=== PATIENT | male | born 1940 | race Caucasian/White ===

== ENCOUNTER → 2023-07-15 10:59 | Outpatient (REF) | payer MEDICARE, OTHER, SELFPAY ==
[2023-07-15 11:54] LABS: Hematocrit 39.3 % (39.0-52.0); Hemoglobin 13.6 g/dL (13.0-18.0); Mean Corp Hgb Conc. 34.6 g/dL (33.0-37.0); Mean Corpuscular Hgb 34.3 pg (27.0-31.0); Mean Corpuscular Volume 99.2 fL (80.0-94.0); Mean Platelet Volume 11.2 fL (7.4-10.4); Platelet Count 187 10^3/uL (130-400); Red Blood Cell Count 3.96 10^6/uL (4.70-6.10); Red Cell Dist. Width 12.3 % (11.5-14.5)
== END ==
LOC: OLABPV 10:59
PROVIDERS: ATTENDING PHYSICIAN Internal Medicine Gastroenterology
DX: K63.5 Polyp of colon (principal)
CPT/HCPCS: 36415; 85027

== ENCOUNTER → 2023-09-02 10:50 | Outpatient (REF) | payer MEDICARE, OTHER, SELFPAY ==
[2023-09-02 11:46] LABS: % Basophils 0.5 % (0-2); % Eosinophils 1.5 % (0-6); % Immature Granulocytes 0.6 % (0-0.5); % Lymphocytes 17.9 % (20.5-51.1); % Monocytes 13.7 % (1.7-9.3); % Neutrophils 65.8 % (42.2-75.2); Absolute Eosinophils 0.1 10^3/uL (0-0.7); Absolute Lymphocytes 1.1 10^3/uL (1.2-3.4); Absolute Monocytes 0.9 10^3/uL (0.1-0.6); Absolute Neutrophils 4.1 10^3/uL (1.4-6.5); Hematocrit 40.9 % (39.0-52.0); Mean Corp Hgb Conc. 34.2 g/dL (33.0-37.0); Mean Corpuscular Hgb 34.4 pg (27.0-31.0); Mean Corpuscular Volume 100.5 fL (80.0-94.0); Mean Platelet Volume 10.9 fL (7.4-10.4); Nucleated Red Blood Cells % 0 % (-); Platelet Count 187 10^3/uL (130-400); Red Blood Cell Count 4.07 10^6/uL (4.70-6.10); Red Cell Dist. Width 12.4 % (11.5-14.5); White Blood Cell Count 6.2 10^3/uL (4.8-10.8)
[2023-09-02 12:18] LABS: Blood Urea Nitrogen 26 mg/dl (9-20); Calcium 9.2 mg/dl (8.4-10.2); Carbon Dioxide 26 mmol/L (22-30); Chloride 106 mmol/L (98-107); Glucose 94 mg/dl (70-99); Potassium 4.6 mmol/L (3.5-5.1); Sodium 138 mmol/L (135-145); eGFR > 60.00
[2023-09-02 13:22] LABS: Folate 12.7 ng/ml (2.76-20); Vitamin B12 391 pg/ml (239-931)
== END ==
LOC: OLABPV 10:50
PROVIDERS: ATTENDING PHYSICIAN Internal Medicine Gastroenterology; FAMILY PHYSICIAN Family Medicine
DX: Z23 Encounter for immunization (principal); I10 Essential (primary) hypertension; I25.10 Atherosclerotic heart disease of native coronary artery without angina pectoris; Z79.899 Other long term (current) drug therapy
CPT/HCPCS: 36415; 80048; 82607; 82746; 85025

== ENCOUNTER → 2024-05-07 10:39 | Outpatient (REF) | payer MEDICARE, OTHER, SELFPAY ==
[2024-05-07 11:18] LABS: % Basophils 0.7 % (0-2); % Eosinophils 2.3 % (0-6); % Immature Granulocytes 0.5 % (0-0.5); % Lymphocytes 25.6 % (20.5-51.1); % Monocytes 11.8 % (1.7-9.3); % Neutrophils 59.1 % (42.2-75.2); Absolute Eosinophils 0.1 10^3/uL (0-0.7); Absolute Lymphocytes 1.5 10^3/uL (1.2-3.4); Absolute Monocytes 0.7 10^3/uL (0.1-0.6); Absolute Neutrophils 3.4 10^3/uL (1.4-6.5); Hematocrit 41.1 % (39.0-52.0); Hemoglobin 13.6 g/dL (13.0-18.0); Mean Corp Hgb Conc. 33.1 g/dL (33.0-37.0); Mean Corpuscular Hgb 33.9 pg (27.0-31.0); Mean Corpuscular Volume 102.5 fL (80.0-94.0); Mean Platelet Volume 11.5 fL (7.4-10.4); Nucleated Red Blood Cells % 0 % (-); Platelet Count 175 10^3/uL (130-400); Red Blood Cell Count 4.01 10^6/uL (4.70-6.10); Red Cell Dist. Width 12.4 % (11.5-14.5); White Blood Cell Count 5.7 10^3/uL (4.8-10.8)
[2024-05-07 12:52] LABS: PSA, Total - Diagnostic 0.07 ng/ml (0.0-4.0)
[2024-05-08 22:00] LABS: % Free Testosterone 1.7 % (1.6-2.9); Free Testosterone 58 pg/mL (47-244); Sex Hormone Binding Globulin 39 nmol/L (19-76); Total Testosterone 351 ng/dL (300-720)
== END ==
LOC: OLABPV 10:39
PROVIDERS: ATTENDING PHYSICIAN Family Medicine Geriatric Medicine
DX: C61 Malignant neoplasm of prostate (principal); Z79.818 Long term (current) use of other agents affecting estrogen receptors and estrogen levels; K62.5 Hemorrhage of anus and rectum
CPT/HCPCS: 36415; 84153; 84270; 84402; 84403; 85025

== ENCOUNTER → 2024-05-21 15:49 | Outpatient (REF) | payer MEDICARE, OTHER, SELFPAY | LOC: RAD 15:49 | PROVIDERS: ATTENDING PHYSICIAN Physician Assistant | DX: M79.661 Pain in right lower leg (principal); M25.561 Pain in right knee | CPT/HCPCS: 73564; 73590 ==

== ENCOUNTER → 2024-06-02 07:05 | Outpatient (REF) | payer MEDICARE, OTHER, SELFPAY | LOC: RAD 07:05 | PROVIDERS: ATTENDING PHYSICIAN Physician Assistant; FAMILY PHYSICIAN Family Medicine | DX: M79.604 Pain in right leg (principal); I70.201 Unspecified atherosclerosis of native arteries of extremities, right leg | CPT/HCPCS: 93922; 93925 ==

== ENCOUNTER 2024-08-06 04:00 | Emergency (ER) | payer MEDICARE, OTHER, SELFPAY ==
[2024-08-06 04:14] VITALS: BMI 24.5
[2024-08-06 04:19] VITALS: BP 116/76
[2024-08-06 04:29] LABS: % Basophils 0.5 % (0-2); % Eosinophils 1.8 % (0-6); % Immature Granulocytes 0.4 % (0-0.5); % Monocytes 11.4 % (1.7-9.3); % Neutrophils 64.9 % (42.2-75.2); Absolute Eosinophils 0.1 10^3/uL (0-0.7); Absolute Lymphocytes 1.7 10^3/uL (1.2-3.4); Absolute Monocytes 0.9 10^3/uL (0.1-0.6); Absolute Neutrophils 5.2 10^3/uL (1.4-6.5); Hematocrit 38.6 % (39.0-52.0); Hemoglobin 13.4 g/dL (13.0-18.0); Mean Corp Hgb Conc. 34.7 g/dL (33.0-37.0); Mean Corpuscular Hgb 34.7 pg (27.0-31.0); Mean Platelet Volume 10.6 fL (7.4-10.4); Nucleated Red Blood Cells % 0 % (-); Platelet Count 162 10^3/uL (130-400); Red Blood Cell Count 3.86 10^6/uL (4.70-6.10); Red Cell Dist. Width 12.6 % (11.5-14.5)
[2024-08-06 04:51] LABS: Troponin I < 0.012 ng/ml
--- NOTE | 2024-08-06 04:52 | ED.GENMED ---
History of Present Illness
General
Chief Complaint: Chest Pain
Source: patient
Exam Limitations: none
Time Seen by Provider: 08/06/24 04:30
Nursing documentation reviewed up to this point in time: agreed with
History of Present Illness
History of Present Illness:
83-year-old male presents via private vehicle with chest pain that began yesterday morning. Patient took his to [facility] for scheduled surgery. He states that when he awakened just prior to leaving the house he had chest pain. He
had identical chest pain off and on throughout the day. He went to sleep and awakened this evening with the chest pain so he came into the emergency department. He does see Dr. Bullard. Patient is concerned because his had surgery
yesterday and he is her primary caregiver. He came into the emergency department just to be checked out. Currently he has no chest pain or any other symptoms.
Past History
Past History
ED Past Medical History: CAD, HTN and Hypercholesterolemia
ED Past Surgical History: Orthopedic (Bilateral knee replacements)
Social History
Tobacco: Former smoker
Alcohol: Occasional
Drug: None
Personal:
Living: with family
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
Family History
Family History: CAD and Other (Hyperlipidemia)
Review of Systems
Review of Systems
Allergies reviewed?: Yes
All Other Systems: ROS reviewed and negative except as documented in HPI and ROS
Constitutional: Reports no symptoms
EENT: Reports no symptoms
Respiratory: Reports no symptoms
Cardiac: Reports chest pain
ABD/GI: Reports no symptoms
: Reports no symptoms
Musculoskeletal: Reports no symptoms
Skin: Reports no symptoms
Neurological: Reports no symptoms
Endocrine: Reports no symptoms
Hematologic/Lymphatic: Reports no symptoms
Psychiatric: Reports no symptoms
Phy Exam
General Physical Exam
General Presentation: well appearing and no apparent distress
General Skin: warm and dry
General Habitus: normal
General Mental: alert
General Hydration: appears well hydrated
ENT Exam
ENT Exam: EOMI, pharynx normal, neck supple and normocephalic
Eye Exam
Eye Exam: PERRL, cornea clear and conjunctiva normal
Cardiovascular Exam
Cardiovascular Exam: regular rate/rhythm, no edema, no murmur and normal peripheral pulses
Pulmonary Exam
Pulmonary Exam: lungs clear, no respiratory distress, no rales, no crackles, no rhonchi, no stridor, no wheezing and no cough
Gastrointestinal Exam
Gastrointestinal Exam: normal bowel sounds, non tender, soft, no organomegaly, no pulsatile mass and non distended
Neurological Exam
Neurological Exam: alert, oriented x3, no motor deficits and speech normal
Musculoskeletal Exam
Musculoskeletal Exam: full ROM and no edema
Skin Exam
Skin Exam: normal color, warm/dry, no rash and no petechia
Psychiatric Exam
Psychiatric Exam: normal mood/affect
Scores
Heart Score for Chest Pain Patients
STEMI patient?: No
History: Slightly or Non-Suspicious
ECG: Normal
Age: >/= 65 years
Risk Factors: 1 or 2 Risk Factors
Troponin: </= Normal Limit
Heart Score for Chest Pain Patients: 3
Heart Score Risk: 2.5% MACE over next 6 weeks
Course
Orders/Labs/Results
Orders:
Orders
08/06/24 04:08
ECG [Electrocardiogram (*1)] Urgent
Reason for Study: Chest Pain
EKG- Treatment ONCE
08/06/24 04:13
EKG- Treatment ONCE
08/06/24 04:21
Complete Blood Count/With Diff Stat
Comprehensive Metabolic Panel Stat
Troponin I Stat
08/06/24 04:46
CR Chest - 2 Views Urgent
Comment:
Reason For Exam: cp
Abnormal Lab Results
08/06/24
04:21
RBC 3.86 L 10^6/uL
(4.70-6.10)
Hct 38.6 L %
(39.0-52.0)
MCV 100.0 H fL
(80.0-94.0)
MCH 34.7 H pg
(27.0-31.0)
MPV 10.6 H fL
(7.4-10.4)
Absolute Monos (auto) 0.9 H 10^3/uL
(0.1-0.6)
Monocytes % 11.4 H %
(1.7-9.3)
BUN 30 H mg/dl
(9-20)
08/06/24 04:21
08/06/24 04:21
Vital Signs
Initial and Last Documented VS:
Initial Vital Signs
Resp Pulse Ox
11 99
08/06/24 04:15 08/06/24 04:15
Last Documented Vital Signs
Pulse Resp BP Pulse Ox
54 17 108/72 97
08/06/24 06:00 08/06/24 06:00 08/06/24 06:00 08/06/24 06:00
*Critical Care Note
Total Time (30-74mins, 75-104mins- exclusive of procedures): Not Applicable
ED Attending Note
-
Portions of this chart may have been created with voice recognition software.� Occasional wrong word or��sound alike� substitutions may have occurred due to the inherent limitations of voice recognition software.
Discharge Plan
Departure
Patient Disposition: Home (Routine Discharge)
Date of Disposition: 08/06/24
Time of Disposition: 06:23
Patient with high blood pressure during this ER visit?: Yes
Condition: Good
Discharge Problem:
Chest pain
Instructions: Chest Pain CBC Follow Up
Prescriptions:
No Action
atorvastatin 40 MG tablet
40 mg PO HS
aspirin 81 MG tablet,delayed release (DR/EC)
81 mg PO HS
spironolactone 25 MG tablet
12.5 mg PO DAILY
nitroglycerin 0.4 MG tablet, sublingual
0.4 mg sublingual [id number] PRN (Reason: chest pain)
tamsulosin 0.4 mg Capsule
0.4 mg PO HS
polyethylene glycol 3350 [Miralax] 17 gram Powder In Packet
17 g PO DAILYPRN PRN (Reason: constipation)
amlodipine 5 mg Tablet
2.5 mg PO DAILY
diphenhydramine HCl 12.5 mg Tablet,Chewable
12.5 mg PO HS
esomeprazole magnesium 20 mg Tablet,Delayed Release (Dr/Ec)
40 mg PO DAILY
Dupixent Syringe 300 mg/2 mL Syringe
300 mg SC Q2W
ondansetron 4 mg tablet,disintegrating
4 mg PO Q8H PRN (Reason: nausea and vomiting) Qty: 7 0RF
Referrals:
Cuco Shabazz MD [Active] - Next open appointment
UNKNOWN - PT DOES,NOT KNOW [Family Provider] -
Activity Restrictions/Additional Instructions:
It was a pleasure meeting you and taking part in your care. We hope for your continued healing and wellness.
Please read discharge instructions in their entirety. However, they are for general education and may not describe your exact diagnosis at discharge. Information on your ER visit and medical conditions were discussed with you along with appropriate
follow up information...
If indicated, please take your medications as instructed and indicated on discharge paperwork.
Please schedule a follow up appointment as directed. Call to schedule an appointment
Please return to the emergency department with ANY change in, persisting, or worsening of symptoms. If any of your symptoms do not improve, or persist, or become more severe within 6-12 hours, please return to the emergency department for further
care.
Please return to the emergency department if you develop a headache, neck pain/stiffness, fever greater than 100.4F, chest pain, shortness of breath, persistent nausea, vomiting, slurred speech, difficulty walking, numbness/tingling, weakness, signs
of infection or any other symptoms that are worrisome to you.
If you have any questions or concerns please do not hesitate to call the Hospital at or E-mail me directly at [email or web address]
Interventions
Interventions:
*Risk Screen - Suicide Last Done: 08/06/24 04:10
*General Assessment Last Done: 08/06/24 04:27
*Neglect/Abuse Screening Last Done: 08/06/24 04:10
*ED- Fall Risk Assessment Last Done: 08/06/24 04:10
*ED COVID-19 Vaccine History Last Done: 08/06/24 04:10
ED- Cardiac Assessment Last Done: 08/06/24 04:28
Discharge Date and Time
Print Language: MOHAWK
[2024-08-06 04:53] LABS: ALT (SGPT) 31 U/L (0-50); AST (SGOT) 27 U/L (17-59); Albumin 4.1 g/dl (3.5-5.0); Alkaline Phosphatase 73 U/L (38-126); Blood Urea Nitrogen 30 mg/dl (9-20); Calcium 8.8 mg/dl (8.4-10.2); Carbon Dioxide 24 mmol/L (22-30); Chloride 107 mmol/L (98-107); Estimated Creatinine Clearance 53 ml/min; Glucose 99 mg/dl (70-99); Sodium 141 mmol/L (135-145); Total Bilirubin 0.8 mg/dl (0.2-1.3); Total Protein 6.4 g/dl (6.3-8.2); eGFR > 60.00
[2024-08-06 05:00] VITALS: BP 110/65
[2024-08-06 06:00] VITALS: BP 108/72
== END 2024-08-06 06:36 | disposition home or self-care (01) ==
LOC: EMR 04:00
PROVIDERS: EMERGENCY PHYSICIAN Student in an Organized Health Care Education/Training Program
DX: R07.89 Other chest pain (principal); E78.00 Pure hypercholesterolemia, unspecified; I10 Essential (primary) hypertension; I25.10 Atherosclerotic heart disease of native coronary artery without angina pectoris; Z01.810 Encounter for preprocedural cardiovascular examination; Z82.49 Family history of ischemic heart disease and other diseases of the circulatory system; Z83.438 Family history of other disorder of lipoprotein metabolism and other lipidemia; Z83.49 Family history of other endocrine, nutritional and metabolic diseases; Z87.891 Personal history of nicotine dependence; Z96.653 Presence of artificial knee joint, bilateral
CPT/HCPCS: 99283; 71046; 80053; 84484; 85025; 93005

== ENCOUNTER 2024-08-11 17:05 | Inpatient (IN) | payer MEDICARE, OTHER, SELFPAY ==
[2024-08-11] VITALS (13 sets, daily range): BP systolic 112–147; BP diastolic 58–89; BMI 25.1
[2024-08-11] MEDS: NSS 231 ML IV (12:30)
[2024-08-11] MEDS: NSS 1000 IV (15:16)
--- NOTE | 2024-08-11 15:27 | ITS.CL.CATH ---
Professor Of Physics - Catheterization
Cardiac Catheterization
Procedure Report:
CARDIAC CATHETERIZATION REPORT
Date of Procedure: 08/11/2024
Referring: Chip Villalpando M.D.
INDICATION: Known coronary artery disease, new chest pain.
PROCEDURE:
1. Left heart catheterization.
2. Coronary angiography.
A total of 19 minutes of procedural/moderate sedation was utilized. An independent durable medical equipment technician was present to assist with and help manage the patient's level of consciousness and physiologic status.
ACCESS:
1. 6 Samoan right rate artery using a modified Seldinger technique.
CATHETERS:
1. 5 Samoan JR4.
2. 5 Samoan JL 3.5.
HEMODYNAMIC DATA
Weight (kg): 77.1
AO (s/d/x, mmHg): 110/63/81
LV (s/x mmHg): 112/6
LEFT VENTRICULOGRAPHY: Not performed.
CORONARY ANGIOGRAPHY
Dominance: Right.
Left Main: Normal size, bifurcating vessel. There is a densely calcified, 70-80% lesion in the distal aspect of the left main as it enters the LAD and circumflex.
LAD: Normal size vessel giving rise to 1 significant diagonal. There is an at least 70% blockage in the ostium of the vessel as it arises from the left main coronary artery as an extension of the left main lesion. There is a densely calcified,
80% lesion in the proximal vessel immediately proximal to the master septal.
Ramus: Congenitally absent.
Circumflex: Large size, nondominant vessel giving rise to 3 obtuse marginals. There is a 70+% lesion in the ostium of the vessel as an extension of the left main lesion. OM1 is a relatively small vessel with an 80% lesion in its ostium. OM 2
and OM 3 arise more distally and run a parallel course.
RCA: Normal size, dominant vessel. The vessel is subtotally occluded with bridging collaterals in its midportion supplying a large posterolateral branch with PARAG II flow. The RPDA is chronically totally occluded and supplied by collaterals
from the LAD.
INTERVENTION(S)
None.
Closure Device: Vascular band.
Radiation (mGy): 505.64
DAP (cm2.Gy): 32.2735
Fluoroscopy time (minutes): 3.1
CONCLUSIONS
1. Right dominant circulation with a densely calcified, 70-80% lesion in the distal aspect of the left main extending into both the LAD and circumflex with 70% blockages in the ostia of both vessels, and 80%, densely calcified lesion in the
proximal LAD immediately proximal to the master septal, and 80% lesion in a small OM1 ostium, subtotal occlusion of the mid RCA with bridging collaterals supplying a large posterolateral branch with PARAG II flow and a chronic total occlusion of the
RPDA which is supplied by collaterals from the LAD.
2. Normal filling pressures (LVEDP = 6 mmHg at 77.1 kg).
RECOMMENDATIONS:
1. Expectant management after cardiac catheterization via right radial approach.
2. Limited weight bearing on the right for one week.
3. Consultation with CT surgery regarding optimal revascularization strategy.
4. Aggressive secondary prevention with high-dose, high potency statin. Goal LDL <55.
5. OMT/GDMT as hemodynamics will tolerate.
6. Echocardiogram ordered and pending.
Copy to: Chip Villalpando M.D., Marquise Escobar M.D.
Emile Booth DO, FACC, FACP
--- NOTE | 2024-08-11 16:27 | PTCARENOTE ---
Dr Booth at pt bedside speaking to pt and pt's son.
[2024-08-11 17:02] LABS: Hemoglobin 13.3 g/dL (13.0-18.0); Mean Corpuscular Hgb 34.9 pg (27.0-31.0); Mean Corpuscular Volume 99.7 fL (80.0-94.0); Mean Platelet Volume 10.5 fL (7.4-10.4); Platelet Count 143 10^3/uL (130-400); Red Blood Cell Count 3.81 10^6/uL (4.70-6.10); Red Cell Dist. Width 12.3 % (11.5-14.5); White Blood Cell Count 7.5 10^3/uL (4.8-10.8)
[2024-08-11 17:20] LABS: APTT 142.1 Sec (23.4-35.0)
--- NOTE | 2024-08-11 17:45 | PTCARENOTE ---
received pt from laboratory coordinator. AOx3, no complaints of pain or discomfort. Right radial site CDI. VSS. SB on tele monitor. Oriented to room and unit. Pt educated on limb restrictions. Call hou within reach.
--- NOTE | 2024-08-11 17:52 | CONSULT.CT ---
Consultation
-
Date/Time Consultation Requested: 08/11 1629
Date/Time Consultation Performed: 08/11 1744
Requesting Provider: Leobardo VENTURA
Performing Provider: Roslyn ROMAN for Pepe VENTURA
Reason for Consultation: CABg eval
Patient History
Physicians
Family Physician: Marquise Escobar M.D.
Outpatient Clinical Staff Educator: Chip Villalpando M.D.
Inpatient Clinical Staff Educator: Chip Villalpando M.D.
History of Present Illness
A 83-year-old male with past medical history significant for hypertension, hyperlipidemia, CAD initially presented to [facility]'s emergency room on 08/06 complaining of chest pain. He recently took his for a scheduled surgery that day at
[facility] and stated that prior to leaving the house he had some chest pain that was on and off throughout the day. He went to sleep and was awakened this evening with chest pain so he came to [facility]'s emergency room. Patient's
troponins were negative at that time and EKG did not show significant changes. Therefore patient was discharged from the hospital and presented on 08/11 for a elective heart cath with Dr. Booth. Left heart catheter revealed multivessel disease and
CT surgery was consulted for surgical evaluation.
Past Medical History
Past Medical History: CAD, HTN and Hypercholesterolemia
Past Surgical History
B/l knee replacements
Tonsilectomy
Family History
Mother: N/A
Father: N/A
Family Medical History: CAD
Social History
Alcohol: Occasional
Drug: None
Tobacco: Former Smoker (quit in 1968 smoked 1.5PPD)
Personal:
Living: With Spouse
Employment: Retired
Allergies
Allergy/AdvReac Type Severity Reaction Status Date / Time
bee venom protein (honey bee) Allergy throat Verified 08/11/24 12:38
closing
and itching
hydrochlorothiazide Allergy THROAT Verified 08/11/24 12:38
[From Prinzide] SWELLING
hydromorphone HCl Allergy Hives Verified 08/11/24 12:38
[From Dilaudid]
lisinopril [From Prinzide] Allergy THROAT Verified 08/11/24 12:38
SWELLING
morphine [Morphine] Allergy Hives Verified 08/11/24 12:38
oxycodone HCl [From Percocet] Allergy Hives Verified 08/11/24 12:38
Sulfa (Sulfonamide Allergy Hives Verified 08/11/24 12:38
Antibiotics)
tramadol Allergy itch and Verified 08/11/24 12:38
difficulty
sleeping
ezetimibe [From Zetia] AdvReac LEG Verified 08/11/24 12:38
SORENESS
Home Medications
�Medication �Instructions �Recorded �Confirmed �Type
aspirin 81 mg tablet,delayed 81 mg PO QPM 09/01/16 08/11/24 History
release
atorvastatin 40 mg tablet 40 mg PO QPM 09/01/16 08/11/24 History
nitroglycerin 0.4 mg sublingual 0.4 mg sublingual [id number] PRN 09/01/16 08/11/24 History
tablet chest pain
spironolactone 25 mg tablet 12.5 mg PO DAILY 09/01/16 08/11/24 History
tamsulosin 0.4 mg capsule 0.8 mg PO HS 01/30/22 08/11/24 History
amlodipine 5 mg tablet 2.5 mg PO DAILY 03/26/23 08/11/24 History
dupilumab 300 mg/2 mL subcutaneous 300 mg SC Q2W 03/26/23 08/11/24 History
syringe (Dupixent)
polyethylene glycol 3350 17 gram 17 g PO DAILYPRN PRN constipation 03/26/23 08/11/24 History
oral powder packet (Miralax)
Probiotic 2 tab PO DAILY 08/11/24 08/11/24 History
diphenhydramine HCl 25 mg tablet 25 mg PO HS 08/11/24 08/11/24 History
(Benadryl Allergy)
epinephrine 0.3 mg/0.3 mL 0.3 mg IM DAILYPRN PRN allergic 08/11/24 08/11/24 History
injection, auto-injector reaction
esomeprazole magnesium 40 mg 40 mg PO BID 08/11/24 08/11/24 History
capsule,delayed release (Nexium)
Review of Systems
-
History Source: Patient
General: Reports No Symptoms
HEENT: Reports No Symptoms
Respiratory: Reports No Symptoms
Cardiac: Reports Chest Pain
Abdomen/GI: Reports No Symptoms
: Reports No Symptoms
Musculoskeletal: Reports No Symptoms
Skin: Reports No Symptoms
Neurological: Reports No Symptoms
Vascular: Reports No Symptoms
Physical Exam
Vital Signs
Temp 97.7 F 08/11/24 17:41
Temp route: Oral 08/11/24 17:41
Pulse 63 08/11/24 17:41
Resp Rate 20 08/11/24 17:41
Blood pressure 147/89 08/11/24 17:41
Blood pressure extremity used: Left upper arm 08/11/24 17:23
Position: Lying 08/11/24 17:23
MAP (cuff-Heidi Monitor) 105 08/11/24 17:41
SaO2 97 08/11/24 17:41
Oxygen Mode of Delivery Room air 08/11/24 17:41
Can the patient verbally communicate their pain? Yes 08/11/24 17:23
Actual Weight 77.11 kg 08/11/24 12:10
Body Mass Index (BMI) 25.1 08/11/24 12:10
Labs
08/11/24 16:51
APTT 142.1 Sec (23.4-35.0) H 08/11/24 16:51
Exam
General: Well Developed and Well Nourished
HEENT: Normocephalic
Respiratory: Clear
Cardiac: S1/S2
GI: Soft
Rectal: Deferred by Provider
Skin: Warm
Neuro: AO x 3
Extremities: Pulses (+1)
Lymph: No Lymphadenopathy
Psych: Calm
Assessment / Plan
-
83-year-old male with past medical history listed above presents to [facility] for an elective left heart catheter and was found to have multivessel disease. CT surgery was consulted for surgical evaluation
#CAD
-Patient's case will be discussed with attending physician. Further details regarding surgical timing intervention will be determined after attending physicians full evaluation
-Routine preoperative cardiothoracic surgery orders will be initiated.
-STS risk stratification score will be calculated after preoperative testing is complete
-Continue nitroglycerin and heparin gtt per cardiology
�Follow-up on TTE
[2024-08-11] MEDS: LIPITOR 40 MG PO (17:55)
[2024-08-11] MEDS: FLOMAX 0.8 MG PO (20:15)
[2024-08-11 20:44] LABS: APTT 32.9 Sec (23.4-35.0)
[2024-08-11] MEDS: HEPARIN 25000 UNITS/250 ML IV (21:58)
[2024-08-11] MEDS: BENADRYL 25 MG PO (22:38)
--- NOTE | 2024-08-11 23:54 | PTCARENOTE ---
Pt seated in the chair with family at change of shift. Plan of care discussed. Pt without complaints. R radial CDI. palpable pulses. No complaints of CP. Heparin gtt started @ 2200 as documented. Urinal provided for frequency concerns with the IV
pole.
[2024-08-12] VITALS (8 sets, daily range): BP systolic 111–135; BP diastolic 71–85; BMI 23.7
[2024-08-12 04:33] LABS: INR 1.06; PT 14.3 Sec (11.4-14.6)
[2024-08-12 04:35] LABS: APTT 75.1 Sec (23.4-35.0)
[2024-08-12 05:12] LABS: ALT (SGPT) 19 U/L (0-50); AST (SGOT) 22 U/L (17-59); Albumin 3.7 g/dl (3.5-5.0); Alkaline Phosphatase 76 U/L (38-126); Blood Urea Nitrogen 21 mg/dl (9-20); Carbon Dioxide 25 mmol/L (22-30); Chloride 108 mmol/L (98-107); Direct Bilirubin 0.2 mg/dl (0.0-0.4); Estimated Creatinine Clearance 53 ml/min; Glucose 92 mg/dl (70-99); Potassium 4.5 mmol/L (3.5-5.1); Sodium 140 mmol/L (135-145); Total Bilirubin 0.8 mg/dl (0.2-1.3); Total Protein 5.9 g/dl (6.3-8.2); eGFR > 60.00
--- NOTE | 2024-08-12 08:07 | PTCARENOTE ---
Received patient this morning resting in bed, IV heparin infusing at 950 units/hr. Patient sent for his CT of the chest and ultrasound. Patient anxious to find out when impending surgery will be scheduled.
[2024-08-12 08:44] LABS: Glycohemoglobin (HgbA1c) 5.5 % (4.0-5.6)
--- NOTE | 2024-08-12 09:01 | W.PN.CD ---
Addendum entered and electronically signed by Cuco Shabazz MD 08/13/24 14:15:
Cath yesterday: CONCLUSIONS
1. Right dominant circulation with a densely calcified, 70-80% lesion in the distal aspect of the left main extending into both the LAD and circumflex with 70% blockages in the ostia of both vessels, and 80%, densely calcified lesion in the
proximal LAD immediately proximal to the master septal, and 80% lesion in a small OM1 ostium, subtotal occlusion of the mid RCA with bridging collaterals supplying a large posterolateral branch with PARAG II flow and a chronic total occlusion of the
RPDA which is supplied by collaterals from the LAD.
2. Normal filling pressures (LVEDP = 6 mmHg at 77.1 kg).
Original Note:
Today's Communication / Plan
-
Continue meds anticipation for or tomorrow
Impression / Plan
-
I/P: 83-year-old male with CAD, hypertension, dyslipidemia, prostate cancer and GERD who initially presented for outpatient coronary angiography. He was then found to have severe left main disease. He is in preparation for CABG.
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
-CABG August 13
-Cath below
-Continue statin aspirin
Hypertension
-Continue amlodipine metoprolol spironolactone
Dyslipidemia
-Continue statin
Physical Exam
Vital Signs/Labs
Vital Signs
Temp Pulse Resp BP Pulse Ox
97.8 F 70 16 115/82 97
08/12/24 20:43 08/13/24 06:00 08/12/24 20:43 08/13/24 05:59 08/12/24 20:43
08/12/24 08/13/24 08/14/24
06:59 06:59 06:59
Actual Weight 160 lb 11.472 oz 157 lb 10.088 oz
08/13/24 05:13
08/12/24 04:12
PT 14.3 Sec (11.4-14.6) 08/12/24 04:12
INR 1.06 08/12/24 04:12
APTT 108.7 Sec (23.4-35.0) H 08/12/24 10:30
Physical Exam
Constitutional: No acute distress
EENT: Anicteric
Cardiovascular: Rhythm & rate is regular
Respiratory: Respiratory effort normal
GI: Soft
Neuro/Psych: AO x 3
Data Reviewed
-
Date of Service: August 13, 2024
Medical Decision Making: Reviewed Test Results (cath)
EKG: Tracing Personally Visualized and interpreted (sr)
Echo: Report Reviewed by me
Labs: Labs Reviewed by me
[2024-08-12] MEDS: PROTONIX 40 MG PO (10:20)
[2024-08-12] MEDS: NORVASC 2.5 MG PO (10:21)
[2024-08-12] MEDS: LOW STRENGTH ASPIRIN 81 MG PO (10:21)
[2024-08-12] MEDS: ALDACTONE 12.5 MG PO (10:22)
[2024-08-12 11:06] LABS: APTT 108.7 Sec (23.4-35.0)
--- NOTE | 2024-08-12 11:41 | CM ---
Chart reviewed. Patient is independent of ADLS, lives with his in [place] at [facility], [address], [address] [place], 0 [address]. Patient going for a CABG 08/13. Plan is for the patient to return home with CT Transitional RN. CM to follow
--- NOTE | 2024-08-12 13:48 | W.PN.UPDATE ---
Update Note
Progress Note Update
STS RISK SCORE
Procedure Type:�Isolated CABG
Perioperative Outcome Estimate %
Operative Mortality 1.91%
Morbidity & Mortality 6.07%
Stroke 0.871%
Renal Failure 1%
Reoperation 2.57%
Prolonged Ventilation 2.85%
Deep Sternal Wound Infection 0.069%
Long Hospital Stay (>14 days) 3.93%
Short Hospital Stay (<6 days)* 42.4%
Clinical Summary
Planned Surgery: Isolated CABG, Urgent, First cardiovascular surgery
Demographics: 83 year old, White, male, 72.9kg, 175cm, BMI: 23.8 kg/m�
Lab Values: Creatinine: 1.1 mg/dL, Hematocrit: 38%, WBC Count: 7.5 10�/�L, Platelet Count: 155281 cells/�L
Substance Abuse: Former smoker, Alcohol use: <=1 drink/week
Risk Factors / Comorbidities: Hypertension
Cardiac Status: NYHA Class II, Ejection Fraction = 50%
Coronary Artery Disease: 3 vessels diseased, Left Main Stenosis >=50%, Stable Angina
--- NOTE | 2024-08-12 14:10 | W.PN.UPDATE ---
Update Note
Progress Note Update
CARDIAC SURGERY OPERATIVE NOTE:
It was my pleasure to meet w/ Mr. Strong and his family at his bedside today. I have reviewed his medical history and all available imaging. He will benefit from surgical coronary revascularization. I anticipate BLAYNE to LAD and GSV to OM2. I
will evaluate his posterior circulation (RPLB and RPDA) vessels and am hopeful that at least one of these will also be amenable to bypass. I will also assess his OM1 branch, but believe this will be too small to accommodate a bypass with any degree
of longevity. His work-up is complete w/ the exception of echocardiographic assessment. I am planning operative intervention TOMORROW, 08/13/2024.
I had a long conversation w/ Mr. Strong and his family. We reviewed his pathology, discussed the proposed operative intervention, reviewed the periprocedural risks (including, but not limited to, , stroke, AL, arrythmia, PNA, TONY/F,
bleeding, and infection), discussed the expected in-hospital postoperative course, and reviewed the outpatient recovery. All questions were answered to the best of my abilities. The patient is agreeable to proceed.
Thank you for the opportunity to participate in the care of this kind patient.
Please call with any questions/concerns.
Semaj Cantu M.D.
[phone]
--- NOTE | 2024-08-12 14:28 | CM ---
Preoperative and postoperative instructions and restrictions, along with showering instructions guidelines provided to the patient, and daughters. Patient is agreeable to a home visit by CT Transitional RN. Patient is independent of ADLS,
lives in a cottage at [place] at [facility], [address] [facility], [address] [place], 0 [address]. Plan is for the patient to return home with CT Transitional RN.
[2024-08-12] MEDS: LIPITOR 40 MG PO (17:12)
[2024-08-12 18:11] LABS: Urine Albumin Negative (Neg - Trace); Urine Bilirubin Negative (Negative); Urine Character Clear (Clear); Urine Color Yellow; Urine Glucose Negative (Negative); Urine Ketone Negative (Negative); Urine Leukocyte Negative (Negative); Urine Nitrite Negative (Negative); Urine Occult Blood Negative (Negative); Urine Specific Gravity 1.005 (<1.030); Urine Urobilinogen Negative (Neg - 1+)
[2024-08-12] MEDS: SENOKOT-S 1 TABLET PO (20:44)
--- NOTE | 2024-08-12 21:00 | PTCARENOTE ---
Received pt @ change of shift. AAOx3. VSS. Heparin running through left AC @ 950 units/hr. Right radial site CDI. Discussed OR prep for the night. Pt verbalized understanding. Call hou within reach.
[2024-08-12] MEDS: HEPARIN 25000 UNITS/250 ML IV (22:18)
[2024-08-12] MEDS: FLOMAX 0.8 MG PO (22:19)
[2024-08-13] VITALS (15 sets, daily range): BP systolic 80–122; BP diastolic 62–82; BMI 23.3
--- NOTE | 2024-08-13 01:20 | PTCARENOTE ---
CVOR prep completed @ 2244. Pt clipped, CHG washed, linens and gown changed, bed wiped down. Discussed plan of care for morning prep. Pt verbalized understanding for NPO @ midnight. EVA Lam PA, verified prep.
[2024-08-13 05:50] LABS: Hematocrit 41.3 % (39.0-52.0); Hemoglobin 14.6 g/dL (13.0-18.0); Mean Corp Hgb Conc. 35.4 g/dL (33.0-37.0); Mean Corpuscular Hgb 34.9 pg (27.0-31.0); Mean Corpuscular Volume 98.8 fL (80.0-94.0); Mean Platelet Volume 11.3 fL (7.4-10.4); Platelet Count 166 10^3/uL (130-400); Red Blood Cell Count 4.18 10^6/uL (4.70-6.10); Red Cell Dist. Width 12.4 % (11.5-14.5); White Blood Cell Count 8.4 10^3/uL (4.8-10.8)
[2024-08-13] MEDS: LOPRESSOR 25 MG PO (05:59)
[2024-08-13] MEDS: PROTONIX 40 MG PO (05:59)
[2024-08-13] MEDS: MAGNESIUM OXIDE 500 MG PO (05:59)
[2024-08-13] MEDS: BACTROBAN 2% OINTMENT 1 APPLIC NASAL ×2 (06:09→20:06)
[2024-08-13 07:07] LABS: ACT+ - POC 115 Seconds (82-134)
[2024-08-13 08:05] LABS: Urine Albumin 1+ (Neg - Trace); Urine Bilirubin Negative (Negative); Urine Character Clear (Clear); Urine Color Yellow; Urine Glucose Negative (Negative); Urine Ketone Negative (Negative); Urine Leukocyte Negative (Negative); Urine Nitrite Negative (Negative); Urine Occult Blood Negative (Negative); Urine Urobilinogen Negative (Neg - 1+); Urine pH 6.5 (5.0-9.0)
[2024-08-13 08:28] LABS: Urine Amorphous Seen; Urine Squamous Cell 0-2 /LPF (Few)
[2024-08-13 08:29] LABS: Urine Red Blood Cell 0-2 /HPF (0-2); Urine White Cell 0-2 /HPF (0-5)
[2024-08-13 09:44] LABS: ACT+ - POC 742 Seconds (82-134)
[2024-08-13 10:25] LABS: ACT+ - POC 857 Seconds (82-134)
[2024-08-13 10:25] LABS: B.E. - POC -3.7 mmol/L; Glucose - POC 113 mg/dl (70-99); HCO3 - POC 23 mmol/L (21-28); Hematocrit - POC 39 % PCV (42-52); Hemodilution- POC No; Hemoglobin Calculated - POC 13.3; Ionized Calcium - POC 1.16 mmol/L (1.15-1.33); Lactate - POC < 0.30 mmol/L (0.36-0.75); PCO2 - POC 48 mmHg (35-48); PO2 - POC 408 mmHg (83-108); Potassium - POC 3.9 mmol/L (3.5-5.1); Sodium - POC 145 mmol/L (136-145); Specimen Type - POC Arterial; pH - POC 7.29 (7.35-7.45)
[2024-08-13 10:50] LABS: ACT+ - POC 704 Seconds (82-134)
[2024-08-13 11:03] LABS: B.E. - POC 3.4 mmol/L; Glucose - POC 140 mg/dl (70-99); HCO3 - POC 28 mmol/L (21-28); Hematocrit - POC 31 % PCV (42-52); Hemodilution- POC Yes; Hemoglobin Calculated - POC 10.6; Ionized Calcium - POC 0.94 mmol/L (1.15-1.33); Lactate - POC < 0.30 mmol/L (0.36-0.75); PCO2 - POC 41 mmHg (35-48); PO2 - POC 424 mmHg (83-108); Potassium - POC 5.5 mmol/L (3.5-5.1); Sodium - POC 139 mmol/L (136-145); Specimen Type - POC Arterial; pH - POC 7.44 (7.35-7.45)
[2024-08-13 11:22] LABS: ACT+ - POC 521 Seconds (82-134)
[2024-08-13 11:24] LABS: B.E. - POC 1.4 mmol/L; Glucose - POC 169 mg/dl (70-99); HCO3 - POC 26 mmol/L (21-28); Hematocrit - POC 30 % PCV (42-52); Hemodilution- POC Yes; Hemoglobin Calculated - POC 10.3; Ionized Calcium - POC 0.96 mmol/L (1.15-1.33); Lactate - POC < 0.30 mmol/L (0.36-0.75); O2 Saturation %Calculated-POC 99.9 % (94-98); PCO2 - POC 39 mmHg (35-48); PO2 - POC 330 mmHg (83-108); Potassium - POC 5.5 mmol/L (3.5-5.1); Sodium - POC 140 mmol/L (136-145); Specimen Type - POC Arterial; pH - POC 7.43 (7.35-7.45)
[2024-08-13] MEDS: ALDACTONE PO (11:24)
[2024-08-13] MEDS: NORVASC PO (11:25)
[2024-08-13] MEDS: PROTONIX PO (11:25)
[2024-08-13] MEDS: SENOKOT-S PO (11:25)
[2024-08-13] MEDS: LOW STRENGTH ASPIRIN PO (11:25)
[2024-08-13 11:33] LABS: B.E. - POC 0.8 mmol/L; Glucose - POC 161 mg/dl (70-99); HCO3 - POC 26 mmol/L (21-28); Hematocrit - POC 31 % PCV (42-52); Hemodilution- POC Yes; Hemoglobin Calculated - POC 10.5; Ionized Calcium - POC 1.01 mmol/L (1.15-1.33); Lactate - POC 0.51 mmol/L (0.36-0.75); O2 Saturation %Calculated-POC 99.9 % (94-98); PCO2 - POC 45 mmHg (35-48); PO2 - POC 277 mmHg (83-108); Potassium - POC 5.4 mmol/L (3.5-5.1); Sodium - POC 141 mmol/L (136-145); Specimen Type - POC Arterial; pH - POC 7.38 (7.35-7.45)
--- NOTE | 2024-08-13 11:40 | CM ---
Addendum entered by FELIPE Barriga 08/13/24 15:40:
Met w/ patient's son, Ed at bedside.
Ed expressed concern that patient will go home and resume his caregiving role to his spouse. 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
We discussed patient's anticipated recovery and level of function at DC.
We discussed the possibility of patient going to rehab, if needed @ [facility].
We discussed that patient will have to participate in Cardiac Rehab and get around this weekend so that we can see his functional status.
Goal is to go home but we may need to review functional limitations w/ patient and spouse prior to DC.
Original Note:
Patient in OR today for planned CT Surgery.
Reviewed initial assessment.
Pt. resides w/ spouse in a private [place] apartment at [facility].
Pt. is functionally indep. at baseline w/ ADLs, mobility.
Antic. DC plan is for home w/ CT Transitional Care RN.
CM to follow.
[2024-08-13 11:47] LABS: ACT+ - POC 607 Seconds (82-134)
[2024-08-13 12:29] LABS: ACT+ - POC 129 Seconds (82-134)
[2024-08-13 12:31] LABS: B.E. - POC 5.4 mmol/L; Glucose - POC 137 mg/dl (70-99); HCO3 - POC 29 mmol/L (21-28); Hematocrit - POC 31 % PCV (42-52); Hemodilution- POC Yes; Hemoglobin Calculated - POC 10.5; Ionized Calcium - POC 1.16 mmol/L (1.15-1.33); Lactate - POC 1.25 mmol/L (0.36-0.75); O2 Saturation %Calculated-POC 99.9 % (94-98); PCO2 - POC 37 mmHg (35-48); PO2 - POC 251 mmHg (83-108); POC Comment POST; Potassium - POC 4.4 mmol/L (3.5-5.1); Sodium - POC 145 mmol/L (136-145); Specimen Type - POC Arterial
--- NOTE | 2024-08-13 12:59 | W.CVOR.SURPR ---
CVOR Surgeon Immed Pre Op
-
I have examined this patient prior to performance of the scheduled procedure.
The patient's condition is unchanged from the time of the dictated/written History and
Physical and the patient is able to undergo the scheduled procedure.
--- NOTE | 2024-08-13 12:59 | W.IMMPOSTOP ---
Addendum entered and electronically signed by Semaj Cantu MD 08/13/24 14:26:
[id number]
Original Note:
Surgical Immed Post Op Note
-
CARDIAC SURGERY OPERATIVE NOTE:
Preoperative Dx:
MVCAD including distal LM disease
Postoperative Dx:
Same
Procedures:
1) Median sternotomy
2) Takedown of BLAYNE (narrow pedicle)
3) Endoscopic harvest/prep of RLE GSV
4) CABG x 4 (BLAYNE to LAD, GSV to D1, GSV to OM2, GSV to RPDA)
Surgeon:
Semaj Cantu M.D.
Assistants:
Angelic JaureguiA.-CTono; educational program assistant throughout
Teresa Christensen P.A.-C.; endoscopic harvest/prep of RLE GSV; [id number] sternotomy closure
Anesthesia:
Navjot Snyder M.D. and Gavin Palacio, C.R.N.A.
Perfusion:
Ramila Carlson, C.C.P.; CPB: 128min, XC: 84min
Findings:
BLAYNE was healthy appearing conduit w/ brisk blood flow; ELD 2.25mm
GSV was healthy appearing conduit w/ ELD 3.0-3.5mm
LAD was visible on the epicardial surface, minor serpentine course, very scant scattered calcifications; ELD 2.5mm
D1 was visible on the epicardial surface, no sig calcifications, ELD 2.0mm - sig non-coronary collateral flow requiring 1.5mm intracoronary shunt for anastomotic visualization
OM1 was visible on the epicardial surface, but was a small vessel (~1.0mm), anastomosis not performed
OM2 was visible on the epicardial surface, scant scattered calcifications; ELD 2.75mm
RPDA was visible on the epicardial surface, scant scattered calcifications; ELD 2.75mm
Good flow in all grafts on intraoperative transit-time U/S flow probe assessment
Post-MANISHA: LVEF improved from 40-45% preoperative to 50-55% w/o RWMA, no significant VHD
Implants:
CT x 4 (B/L pleural, inferior mediastinal, superior mediastinal)
Sternal wires x 10
Complications:
None
Transfusions:
None
Condition:
63 sinus (0.0/0.0); 97/56; CVP 6; 99%
GTTS: levophed 4, insulin 1, precedex 0.4, dobutamine 3
Stable/guarded to CVICU
[2024-08-13 13:30] LABS: Glucose - Point of Care 130 mg/dl (70-99)
[2024-08-13] MEDS: LR 250 ML IV ×3 (13:30→15:24)
--- NOTE | 2024-08-13 13:30 | CON.INTV ---
Consultation
Consultation Request
Date/Time Consultation Requested: 08/13/2024 - 1304
Date/Time Consultation Performed: 08/13/2024 - 1327
Requesting Provider: ABEL Fierro
Performing Provider: Dr. Brown
Reason for Consultation: s/p CABG x4
Medical History
-
Chief Complaint: Chest pain
History of Present Illness:
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 He had previously come here to the
ER at on 08/06/2024 due to chest pain. Troponin was initially negative. He is now back here for a scheduled left heart catheterization, done on 08/11/2024. This showed 70-80% lesion in the distal aspect of the left main extending into both the
LAD and circumflex with 70% blockages in the ostial and both vessels and 80% densely calcified lesion in the proximal LAD with an 80% lesion in the small OM1 ostium. Also subtotal occlusion of the mid RCA with bridging collaterals. There were
normal filling pressures with LVEDP of 6 mmHg. Cardiothoracic surgery consulted. He was consented for a cardiothoracic revascularization, and today he underwent CABG x 4. There were no immediate complications and he was transferred to the CVICU
with bilateral pleural chest tubes + mediastinal chest tubes x 2. Optical Lab Technician services now consulted for additional management/recommendations.
When I saw the patient, he was resting in bed, intubated on SIMV at 14/500/40%/5, with PS: 5. Current PIP: 18 cmH2O, VTe 510 cc and breathing at 14 breaths/min. Heart rate 64, BP via A-line: 108/63, BP via NIBP: 105/77 and saturating 97%.
Currently sedated on Precedex at 0.4 mcg/kg/hr, on Levophed at 2 mcg/min, and dobutamine at 3 mcg/kg/min. Also on insulin drip at 2.6 units/hr.
PMHx: ED, hypertension, CAD, colon polyps, knee DJD, GERD, ALVARADO, eczema
PSHx: Bilateral knee replacement (2009),
Past Medical History
Past Medical History: Other (Above as per HPI)
Past Surgical History: Other (Above as per HPI)
Social History
Tobacco: Non-smoker
Alcohol: Occasional (Socially)
Drug: None
Family History
Family History: Early CAD (Sibling), CAD (Father + sibling) and Cancer (Mother, maternal aunt and half sister: Colon cancer)
Allergies / Home Medications
Allergies
Allergy/AdvReac Type Severity Reaction Status Date / Time
bee venom protein (honey bee) Allergy throat Verified 08/11/24 12:38
closing
and itching
ezetimibe [From Zetia] Allergy LEG Verified 08/11/24 22:23
SORENESS
hydrochlorothiazide Allergy THROAT Verified 08/11/24 12:38
[From Prinzide] SWELLING
hydromorphone HCl Allergy Hives Verified 08/11/24 12:38
[From Dilaudid]
lisinopril [From Prinzide] Allergy THROAT Verified 08/11/24 12:38
SWELLING
morphine [Morphine] Allergy Hives Verified 08/11/24 12:38
oxycodone HCl [From Percocet] Allergy Hives Verified 08/11/24 12:38
Sulfa (Sulfonamide Allergy Hives Verified 08/11/24 12:38
Antibiotics)
tramadol Allergy itch and Verified 08/11/24 12:38
difficulty
sleeping
Home Medications
�Medication �Instructions �Recorded �Confirmed �Last Taken �Type
aspirin 81 mg tablet,delayed 81 mg PO QPM Blood Clot 09/01/16 08/11/24 08/11/24 08:00 History
release Prevention/Tx
atorvastatin 40 mg tablet 40 mg PO QPM High Cholesterol 09/01/16 08/11/24 08/10/24 19:00 History
nitroglycerin 0.4 mg sublingual 0.4 mg sublingual [id number] PRN 09/01/16 08/11/24 1 Week Ago History
tablet chest pain ~08/04/24
spironolactone 25 mg tablet 12.5 mg PO DAILY Fluid 09/01/16 08/11/24 08/11/24 08:00 History
Retention/Swelling
tamsulosin 0.4 mg capsule 0.8 mg PO HS Urinary Issue 01/30/22 08/11/24 08/10/24 19:00 History
amlodipine 5 mg tablet 2.5 mg PO DAILY Blood Pressure 03/26/23 08/11/24 08/11/24 08:00 History
dupilumab 300 mg/2 mL subcutaneous 300 mg SC Q2W Autoimmune Disorder 03/26/23 08/11/24 08/02/24 History
syringe (Dupixent)
polyethylene glycol 3350 17 gram 17 g PO DAILYPRN PRN constipation 03/26/23 08/11/24 3 Months Ago History
oral powder packet (Miralax) ~05/13/24
Probiotic 2 tab PO DAILY Supplement 08/11/24 08/11/24 08/10/24 19:00 History
diphenhydramine HCl 25 mg capsule 25 mg PO HS PRN sleep 08/11/24 08/11/24 Unknown History
(Benadryl)
diphenhydramine HCl 25 mg tablet 25 mg PO HS Allergies 08/11/24 08/11/24 08/10/24 21:00 History
(Benadryl Allergy)
epinephrine 0.3 mg/0.3 mL 0.3 mg IM DAILYPRN PRN allergic 08/11/24 08/11/24 3 Years Ago History
injection, auto-injector reaction ~08/11/21
esomeprazole magnesium 40 mg 40 mg PO BID Gastrointestinal Issue 08/11/24 08/11/24 08/11/24 08:00 History
capsule,delayed release (Nexium)
Review of Systems
-
Unable to Obtain full review of systems at this time due to: Patient Intubation
Vitals / Labs / Diagnostic Testing
Vital Signs
Temp Pulse Resp BP Pulse Ox
98.5 F 70 18 96/66 98
08/13/24 19:00 08/13/24 19:00 08/13/24 19:00 08/13/24 19:00 08/13/24 19:00
Lab Data
08/13/24 18:18
08/13/24 13:24
Laboratory Results
08/13/24
13:24
PT 18.7 H
INR 1.54
APTT 32.1
pH 7.43
pCO2 34 L
pO2 107
HCO3 22.6
O2 Delivery Level
Diagnostic Testing:
Physical Exam
-
HEENT: Normocephalic, Anicteric and Other (ETT in place)
Cardiovascular: S1/S2, Rub and Peripheral Edema (negative)
Respiratory: Wheeze (negative), Rales (negative), Rhonchi (negative), Other (Mechanical breath sounds heard bilaterally) and Other (Chest tubes: Bilateral pleural chest tubes + mediastinal chest tubes x 2)
GI: Soft, Non Distended, Non Tender and Normal Bowel Sounds
Neurology: Tremors (negative) and Other (Sedated)
Skin: Warm and Dry
General: Respiratory Distress (negative), Comfortable, Chills (negative) and Sweats (negative)
Assessment
-
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 He had previously come
here to the ER at on 08/06/2024 due to chest pain. Troponin was initially negative. He is now back here for a scheduled left heart catheterization, done on 08/11/2024. This showed 70-80% lesion in the distal aspect of the left main extending
into both the LAD and circumflex with 70% blockages in the ostial and both vessels and 80% densely calcified lesion in the proximal LAD with an 80% lesion in the small OM1 ostium. Also subtotal occlusion of the mid RCA with bridging collaterals.
There were normal filling pressures with LVEDP of 6 mmHg. Cardiothoracic surgery consulted. He was consented for a cardiothoracic revascularization, and today he underwent CABG x 4. There were no immediate complications and he was transferred to
the CVICU with bilateral pleural chest tubes + mediastinal chest tubes x 2. Optical Lab Technician services now consulted for additional management/recommendations.
Chronic conditions [employer]WH[employer] TRIMMER: ED, hypertension, CAD, colon polyps, knee DJD, GERD, ALVARADO, eczema
Impression:
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
#Acute anemia due to above
#Acute thrombocytopenia due to above
#GERD
#ED
#Hypertension
#Generalized anxiety disorder
Plan:
Ventilator settings reviewed
FiO2 will be weaned to maintain SpO2 >90-94%
Minute ventilation will be adjusted
Arterial blood gases will be monitored
Spontaneous breathing trial will be attempted with hopeful extubation after anesthesia/sedation wear off
prn nebulized bronchodilators - not currently bronchospastic
Pulmonary artery catheter parameters will be followed
Pressors/antihypertensive/inotropes/diuretics will be provided as needed
Maintain MAP>65
Replete electrolytes with K>4, Mg>2
Monitor chest tube output (bilateral pleural chest tubes + mediastinal chest tubes x 2)
Monitor hemoglobin
Monitor platelet count and coags
Transfuse blood products as needed to maintain Hb>7g/dL, plt>50k (given post-operative status)
CT surgery managing chest tubes
Monitor blood sugar to maintain euglycemia with goal BG 110-140
Insulin drip per protocol
Aspiration precautions
VAP prevention protocol
DVT prophylaxis
Early nutrition
Early mobilization
Critical care statement: A total of 46 minutes of critical care time was provided for this patient today. This includes management of ventilator, spontaneous breathing trial, arterial blood gases, pressors, of unstable vital signs, evaluation of the
patient at bedside, reviewing the patient's pertinent medical records including radiographs, microbiology, laboratory evaluations, and discussion with primary team and critical care nursing.
[2024-08-13 13:43] LABS: Hematocrit 32.5 % (39.0-52.0); Hemoglobin 11.7 g/dL (13.0-18.0); Platelet Count 118 10^3/uL (130-400)
[2024-08-13 13:44] LABS: B.E. -1.2 mmol/L; HCO3 22.6 mmol/L (21-28); Ionized Calcium 1.16 mMOL/L (1.15-1.33); O2 Saturation % 98.6 % (94-98); PCO2 34 mmHg (35-48); PO2 107 mmHg (83-108); Sodium 137 mMOL/L (136-145); pH 7.43 (7.35-7.45)
[2024-08-13 14:04] LABS: INR 1.54; PT 18.7 Sec (11.4-14.6)
[2024-08-13 14:05] LABS: B.E. - POC 1.6 mmol/L; Glucose - POC 164 mg/dl (70-99); HCO3 - POC 28 mmol/L (21-28); Hematocrit - POC 34 % PCV (42-52); Hemodilution- POC Yes; Hemoglobin Calculated - POC 11.4; Ionized Calcium - POC 1.02 mmol/L (1.15-1.33); Lactate - POC < 0.30 mmol/L (0.36-0.75); PCO2 - POC 49 mmHg (35-48); PO2 - POC 393 mmHg (83-108); Potassium - POC 5.3 mmol/L (3.5-5.1); Sodium - POC 142 mmol/L (136-145); Specimen Type - POC Arterial; pH - POC 7.36 (7.35-7.45)
[2024-08-13 14:05] LABS: APTT 32.1 Sec (23.4-35.0)
[2024-08-13] MEDS: CALCIUM GLUCONATE 100 IV (14:05)
[2024-08-13] MEDS: NSS 500 IV (14:05)
[2024-08-13] MEDS: NEURONTIN PO ×2 (14:09→17:10)
[2024-08-13] MEDS: ANCEF 10 IV ×2 (14:09)
[2024-08-13] MEDS: TYLENOL PO (14:09)
[2024-08-13 14:16] LABS: Glucose - Point of Care 114 mg/dl (70-99)
--- NOTE | 2024-08-13 14:25 | PTCARENOTE ---
Pt received from CVOR at 1320; Sedated and intubated; SR with prolonged QT rhythm on monitor; VSS; Distant heart sounds; Doppler DP and +2 radial pulses present; Lungs diminished at bases; ETT size 8 positioned and secured at 22 cm right lip;
Ventilator settings SIMV 14/500/5/5 FiO2 40%; CTx4 to -20 cm wall suction draining bloody drainage - no air leak, tidaling, or crepitus noted; Hypoactive BS; Alvarez catheter in place draining clear, yellow urine; Sternal incision covered with
Aquacell with scant amount of bloody drainage, right groin puncture site glued, ecchymotic, and approximated - CDI, RLE covered with JESUS wrap - CDI; Left radial A-line in place - all lines zeroed and leveled; PIVx1 - #20 present in left forearm;
Levo/insulin/precedex/dobutamine infusing - see nursing flowsheets for further details; 250 ml bolus of LR ordered and given x2; iCal repleted x1; see nursing documentation for further details.
--- NOTE | 2024-08-13 14:29 | W.PN.UPDATE ---
Update Note
Progress Note Update
83-year-old male was admitted on 08/11/24 after [facility] for chest pain (r/o MO). Patient was deemed to be an appropriate surgical candidate.
IV fluids: 1400
U.O.:� 400
Blood:� none
Wires:� none
Drips: Levophed at 4, dobutamine at 3, insulin
Sedatives:�Precedex 0.4
�
NEURO: sedated, pupils +2mm B/L
RESP: #8OT @22cm> 500/60%/14/5. Lungs clear B/L. 2 mediastinal (5cc on arrival) and R/L pleural (5cc on arrival) chest tubes to -20cm suction. Sanguineous drainage, no air leak, no crepitus
CV: RRR +S1, S2, no S3, no�rub, no murmur. Dermabond to median sternotomy. RIJ w/Slik
ABD: round, soft, no BS
EXT: no edema, +2/4 DP pulses B/L, no femoral bruit, RLE JESUS wrap intact; left radial A-line intact
: Alvarez with clear yellow urine
�
A/P: POD #0 s/p CABG x 4 (BLAYNE to LAD, GSV to D1, GSV to OM2, GSV to RPDA)
MANISHA: EF�45-50%
- wean and extubate
- slow wean of dobutamine
# CAD
- will require statin, ASA, Plavix, beta-darline
# ICM with HFrEF
- will require GDMT
�
# acute surgical blood loss anemia-expected
- trend CBC
�
# Asthma
- continue Dupixent 300mg q 2 weeks
[2024-08-13 14:41] LABS: Blood Urea Nitrogen 18 mg/dl (9-20); Estimated Creatinine Clearance 64 ml/min; Glucose 128 mg/dl (70-99); Magnesium 3.1 mg/dl (1.6-2.3)
[2024-08-13 15:04] LABS: Glucose - Point of Care 110 mg/dl (70-99)
--- NOTE | 2024-08-13 15:08 | W.PN.CD ---
Today's Communication / Plan
-
Wean inotropes and sedation
extubation likely later today
Impression / Plan
-
I/P: 83-year-old male with CAD, hypertension, dyslipidemia, prostate cancer and GERD who initially presented for outpatient coronary angiography. He was then found to have severe left main disease. He is in preparation for CABG.
CAD with severe left main disease and multivessel disease now s/p CABG with BLAYNE to LAD SVG to D1 SVG to OM2 and SVG to RPDA
-s/p CABG
- intubated sedated
- wean inotropes and sedation likely extubation later today
-Cath below
-Continue statin aspirin
Hypertension
-on hold for now
Dyslipidemia
-Continue statin
Cath August 11 :
1. Right dominant circulation with a densely calcified, 70-80% lesion in the distal aspect of the left main extending into both the LAD and circumflex with 70% blockages in the ostia of both vessels, and 80%, densely calcified lesion in the
proximal LAD immediately proximal to the master septal, and 80% lesion in a small OM1 ostium, subtotal occlusion of the mid RCA with bridging collaterals supplying a large posterolateral branch with PARAG II flow and a chronic total occlusion of the
RPDA which is supplied by collaterals from the LAD.
2. Normal filling pressures (LVEDP = 6 mmHg at 77.1 kg).
Physical Exam
Vital Signs/Labs
Vital Signs
Temp Pulse Resp BP Pulse Ox
96.6 F L 68 14 80/70 98
08/13/24 15:00 08/13/24 15:05 08/13/24 15:05 08/13/24 15:00 08/13/24 15:05
08/12/24 08/13/24 08/14/24
06:59 06:59 06:59
Actual Weight 160 lb 11.472 oz 157 lb 10.088 oz
03/28/25 13:24
PT 18.7 Sec (11.4-14.6) H 08/13/24 13:24
INR 1.54 08/13/24 13:24
APTT 32.1 Sec (23.4-35.0) 08/13/24 13:24
Magnesium 3.1 mg/dl (1.6-2.3) H 08/13/24 13:24
Physical Exam
Constitutional: Other (intubated and sedated )
EENT: Other (ET tube in place )
Cardiovascular: Rhythm & rate is regular and Pedal edema is absent
Respiratory: Respiratory effort normal, Lungs clear to auscul. and Other (ventilated)
GI: Soft
Neuro/Psych: Other (intubated and sedated )
Data Reviewed
-
Date of Service: August 13, 2024
Medical Decision Making: Reviewed Test Results (cath)
EKG: Tracing Personally Visualized and interpreted (sr)
Echo: Report Reviewed by me
Labs: Labs Reviewed by me
[2024-08-13 16:05] LABS: Glucose - Point of Care 99 mg/dl (70-99)
[2024-08-13] MEDS: OFIRMEV 100 IV (16:59)
[2024-08-13 17:09] LABS: Glucose - Point of Care 118 mg/dl (70-99)
[2024-08-13] MEDS: LIPITOR PO (17:10)
[2024-08-13] MEDS: PACERONE PO (17:10)
--- NOTE | 2024-08-13 17:41 | SUR.OPER ---
RT in room and patient placed on CPAP trial. EPOC due at 6296
--- NOTE | 2024-08-13 17:43 | PTCARENOTE ---
RT in room and patient placed on CPAP trial. EPOC due at 4911
[2024-08-13 18:03] LABS: B.E. - POC 0.9 mmol/L; Blood Urea Nitrogen - POC 18 mg/dl (3-120); Chloride - POC 105 mmol/L (96-111); Creatinine - POC 1.07 mg/dl (0.3-1.0); Glucose - POC 125 mg/dl (70-99); HCO3 - POC 27 mmol/L (21-28); Hematocrit - POC 32 % PCV (42-52); Hemodilution- POC No; Hemoglobin Calculated - POC 10.8; Lactate - POC 2.27 mmol/L (0.36-0.75); O2 Saturation %Calculated-POC 98.9 % (94-98); PCO2 - POC 49 mmHg (35-48); PO2 - POC 137 mmHg (83-108); Potassium - POC 4.1 mmol/L (3.5-5.1); Sodium - POC 143 mmol/L (136-145); Specimen Type - POC Arterial; pH - POC 7.35 (7.35-7.45)
[2024-08-13 18:10] LABS: Glucose - Point of Care 118 mg/dl (70-99)
--- NOTE | 2024-08-13 18:15 | PTCARENOTE ---
EPOC reviewed with NATALI Eubanks at bedside; RT at bedside; Patient extubated at 1805 and placed on 6L NC.
[2024-08-13 18:26] LABS: Hematocrit 30.7 % (39.0-52.0); Hemoglobin 11.3 g/dL (13.0-18.0); Platelet Count 146 10^3/uL (130-400)
--- NOTE | 2024-08-13 18:35 | RESPNOTE ---
pt extubated at 1805 to 6l nasal cannula. 02 sats of 97% noted
[2024-08-13] MEDS: LR 500 IV (18:37)
[2024-08-13] MEDS: LOW STRENGTH ASPIRIN 81 MG PO (18:39)
[2024-08-13 20:05] LABS: Glucose - Point of Care 97 mg/dl (70-99)
[2024-08-13] MEDS: ANCEF 5 IV (20:05)
[2024-08-13] MEDS: SODIUM BICARBONATE 50 MEQ IV (20:05)
[2024-08-13] MEDS: CALCIUM GLUCONATE 290 MG IV (20:24)
[2024-08-13] MEDS: TORADOL 15 MG IV (20:27)
[2024-08-13] MEDS: SENOKOT-S 1 TABLET PO (20:29)
[2024-08-13] MEDS: NEURONTIN 100 MG PO (21:08)
--- NOTE | 2024-08-13 21:26 | PTCARENOTE ---
IV Calcium Gluconate 4 gm and IV Sodium Bicarb 50 mEq given as ordered; New murmur and friction rub noted on auscultation with CVPA Ed B. at bedside; IS 1500 ml; Levo infusion weaned off; Patient complaining of pain and scheduled IV Toradol given
[2024-08-13 22:05] LABS: Glucose - Point of Care 111 mg/dl (70-99)
--- NOTE | 2024-08-13 23:30 | PTCARENOTE ---
Assumed care of the patient at 2300. Patient in bed, AOx3, drowsy, forgetful. SR to SB on the monitor, rates 60's, heart tones audible but distant with a slight rub; radial pulses palpable, dorsalis pedis weak on palpation. Respirations shallow, IS
encouraged, lungs dim at the bases, on 2LNC; 4 CT present to -20 cm wall suction, no air leak, tidaling, or crepitus noted, sanguineous drainage in the chamber. Abdomen SNT, hypoactive BS, tolerating sips of water and ice chips with no nausea. Alvarez
catheter in place draining clear yellow urine. MS Aquacel intact with scant old drainage; R groin ecchymotic CDI, RSVG site with baljit wrap CDI well approximated. RIJ cordis with SLIC, L radial art line leveled and zeroed, PIV x1. See nursing worklist
for additional intervention details.
[2024-08-14] VITALS (23 sets, daily range): BP systolic 87–110; BP diastolic 49–84; BMI 24.1
[2024-08-14 00:10] LABS: Glucose - Point of Care 106 mg/dl (70-99)
[2024-08-14] MEDS: TYLENOL PO (00:11)
[2024-08-14] MEDS: TORADOL 15 MG IV ×2 (02:03→08:45)
[2024-08-14 02:07] LABS: Glucose - Point of Care 78 mg/dl (70-99)
[2024-08-14 03:03] LABS: Glucose - Point of Care 90 mg/dl (70-99)
[2024-08-14 03:27] LABS: Hematocrit 29.2 % (39.0-52.0); Hemoglobin 10.2 g/dL (13.0-18.0); Mean Corp Hgb Conc. 34.9 g/dL (33.0-37.0); Mean Corpuscular Hgb 34.8 pg (27.0-31.0); Mean Corpuscular Volume 99.7 fL (80.0-94.0); Platelet Count 129 10^3/uL (130-400); Red Blood Cell Count 2.93 10^6/uL (4.70-6.10); Red Cell Dist. Width 12.8 % (11.5-14.5)
[2024-08-14 03:31] LABS: INR 1.24; PT 15.9 Sec (11.4-14.6)
[2024-08-14 03:45] LABS: Mixed Venous O2 Saturation 73.8 %
[2024-08-14 03:47] LABS: Blood Urea Nitrogen 22 mg/dl (9-20); Calcium 9.6 mg/dl (8.4-10.2); Carbon Dioxide 25 mmol/L (22-30); Chloride 108 mmol/L (98-107); Estimated Creatinine Clearance 53 ml/min; Glucose 114 mg/dl (70-99); Magnesium 2.4 mg/dl (1.6-2.3); Potassium 4.8 mmol/L (3.5-5.1); Sodium 139 mmol/L (135-145); eGFR > 60.00
[2024-08-14 04:09] LABS: Glucose - Point of Care 101 mg/dl (70-99)
--- NOTE | 2024-08-14 04:12 | W.PN.CT ---
Addendum entered and electronically signed by Semaj Cantu MD 08/14/24 09:13:
I saw and examined the patient.
The PA's note was reviewed and I agree with the note.
Comment:
POD#1 s/p CABG x 4
Doing well.
OOB/IS/ambulate later
Wean dobutamine to 1 today - will plan to D/C tomorrow
D/C a-line
Maintain shelby
Maintain cordis
Original Note:
Today's Communication / Plan
-
Plan:
-No major issues overnight. Hemodynamically and neurologically intact
-Pt was successfully extubated yesterday @ 1800
-Weaned off of Levophed gtt last night, remains on dobutamine gtt @ 3 mcg/kg. On insulin gtt per protocol
-No swan, Last MVO2 73.8%, U/O since OR 1075 mL
-Chest tube output: 2meds 30/180, R/L pleurals 180/340. CXR looks clear to my eyes without significant atelectasis/pleural effusion, no ptx. F/u official report
-Cont. current meds (ASA, Plavix, Lipitor; held Amiodarone and BB last night d/t to bradycardia and dobutamine dependent)
-Wean off of dobutamine as tolerated
-Telemetry phase today once off both dobutamine and insulin gtt per protocol
-D/C'd a-line and SLIC this AM @ 0500
-Will keep shelby another day to avoid urinary retention given hx of Prostate CA S/P XRT and Flomax dependent
-Maintain cordis
-Encourage use of IS
-OOB into chair/Ambulate
Assessment / Plan
-
Assessment:
-S/p Median sternotomy/CABG x 4 (BLAYNE to LAD, GSV to D1, GSV to OM2, GSV to RPDA)/Endoscopic harvest/prep of RLE GSV, by Dr. Cantu, 08/13/24, pod#1
-Severe 3v CAD/70-80% distal LM
-ICM
-LVEF 45-50% per intraop MANISHA
-Sinus bradycardia (HR 55 bpm preop)
-HTN
-Hyperlipidemia
-Asthma/Eczema
-Sinusitis
-Seasonal allergies
-Codeine allergy
-Former tobacco use (quit 1969)
-Anxiety disorder
-GERD
-Diverticulosis
-Colon polyps S/p polypectomies, 02/18/23
-Prostate Ca s/p radiation therapy, 2021
-S/P B/L TKR, 04/02/10
-S/P R knee arthrotomy, 1963
-S/p Left heart catheterization, 08/11/24
-S/p Tonsillectomy
-Acute postop blood loss/Anemia (stable without blood transfusion)
-Acute postop thrombocytopenia (stable without active bleed)
-Acute postop atelectasis
-Acute postop hypovolemia with subsequent hypervolemia
-
Discussed patient care with: Cardiology, Nursing, Respiratory Therapy, Pharmacy and Care Team
Subjective
Procedure
-S/p Median sternotomy/CABG x 4 (BLAYNE to LAD, GSV to D1, GSV to OM2, GSV to RPDA)/Endoscopic harvest/prep of RLE GSV, by Dr. Catnu, 08/13/24
-
Date of Service: August 14, 2024
Pt c/o incisional pain, otherwise feels well
Objective Data
-
Lab Results
08/14/24 03:11
08/14/24 03:11
PT 15.9 Sec (11.4-14.6) H 08/14/24 03:11
INR 1.24 08/14/24 03:11
APTT 32.1 Sec (23.4-35.0) 08/13/24 13:24
Vital Signs
Vital Signs
Temp Pulse Resp BP Pulse Ox
98 F 75 15 94/58 97
08/14/24 04:00 08/14/24 03:15 08/14/24 03:15 08/14/24 03:00 08/14/24 03:15
CT Intake/Output/Weight
08/13/24 08/13/24 08/14/24
06:59 18:59 06:59
Intake Total 1860.3 / 2590.6 730.3 / 2590.6
Output Total 525 / 1450 1050 / 1550 500 / 1550
Balance -525 / -490 810.3 / 1040.6 230.3 / 1040.6
SaO2: 97 (2L)
Physical Exam
-
General: Awake, Oriented and AOx3
Cardiovascular: Regular rate & rhythm, No Murmurs and Rub (likely friction rub from chest tubes)
Respiratory: Decreased Breath Sounds (at bases, otherwise clear)
Sternum: Stable
Incision: Clean, Dry, Intact and Dressing Intact
Extremities: Other (+trace edema)
Data Reviewed
-
Lab Results: Results Reviewed
Medications: Active Meds Reviewed
Chest X-Ray: Report Reviewed and Image Reviewed
ECG: Report Reviewed and Image Reviewed
[2024-08-14] MEDS: ANCEF 5 IV ×2 (04:15→14:09)
[2024-08-14 05:00] LABS: Glucose - Point of Care 110 mg/dl (70-99)
[2024-08-14] MEDS: TYLENOL 1000 MG PO ×3 (05:28→21:10)
--- NOTE | 2024-08-14 06:24 | PTCARENOTE ---
Patient delined per order, no issues. Patient c/o dizziness upon raising HOB. Sat the patient on the EOB and pressure was 89 systolic. Patient placed back into bed for safety, CVPA aware. VSS subsequently stable.
--- NOTE | 2024-08-14 07:45 | W.PN.INTV ---
Today's Communication / Plan
Recommendations
Up OOB as tolerated
Wean off insulin drip with goal BG 110�140
Wean off dobutamine drip while trending MVO2 with goal >60�70
Encouraged incentive spirometer use
Patient will be weaned off the insulin drip and dobutamine drip and then be downgraded to CVICU�telemetry status later today. No additional recommendations at this time. Retail Assistant Manager/Pulmonary service will now sign off. Please reconsult if there
are any additional questions/concerns, or if patient's respiratory status deteriorates.
Assessment
-
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 He had previously come
here to the ER at on 08/06/2024 due to chest pain. Troponin was initially negative. He is now back here for a scheduled left heart catheterization, done on 08/11/2024. This showed 70-80% lesion in the distal aspect of the left main extending
into both the LAD and circumflex with 70% blockages in the ostial and both vessels and 80% densely calcified lesion in the proximal LAD with an 80% lesion in the small OM1 ostium. Also subtotal occlusion of the mid RCA with bridging collaterals.
There were normal filling pressures with LVEDP of 6 mmHg. Cardiothoracic surgery consulted. He was consented for a cardiothoracic revascularization, and today he underwent CABG x 4. There were no immediate complications and he was transferred to
the CVICU with bilateral pleural chest tubes + mediastinal chest tubes x 2. Retail Assistant Manager services now consulted for additional management/recommendations.
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
Impression:
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
#Acute anemia due to above
#Acute thrombocytopenia due to above
#GERD
#ED
#Hypertension
#Generalized anxiety disorder
Plan:
Patient was successfully extubated to nasal cannula on 08/13/2024 and is currently saturating 90% on room air and breathing comfortably
Maintain SpO2 >90-94%
prn nebulized bronchodilators - not currently bronchospastic
Encourage incentive spirometer use q1hr while awake
Pulmonary artery catheter parameters will be followed
Pressors/antihypertensive/inotropes/diuretics will be provided as needed
Maintain MAP>65
Replete electrolytes with K>4, Mg>2
Monitor chest tube output (bilateral pleural chest tubes + mediastinal chest tubes x 2)
Monitor hemoglobin
Monitor platelet count and coags
Transfuse blood products as needed to maintain Hb>7g/dL, plt>50k (given post-operative status)
CT surgery managing chest tubes
Monitor blood sugar to maintain euglycemia with goal BG 110-140
Insulin drip per protocol - to be turned off today
Aspiration precautions
DVT prophylaxis
Early nutrition
Early mobilization
Patient will be weaned off the insulin drip and dobutamine drip, and then be downgraded to CVICU�telemetry status later today. No additional recommendations at this time. Retail Assistant Manager/Pulmonary service will now sign off. Thank you for allowing us
to be involved in the care of this patient. Please reconsult if there are any additional questions/concerns, or if patient's respiratory status deteriorates.
Total time spent today was 76 minutes for this encounter. Time includes reviewing laboratory test/imaging results, reviewing pertinent medical records, obtaining and reviewing medical history, performing an appropriate exam, ordering medications,
tests and procedures. Time also includes documentation of this encounter, coordinating patient care and communicating with other healthcare professionals. Total time does not include separately billed tests performed on this date of service.
Subjective Dataa
Subjective Data
Date of Service:
Date of Service: August 14, 2024
Chief Complaint: Retail Assistant Manager Follow Up
Subjective:
Patient was seen and evaluated today at bedside. Currently on dobutamine at 3 mcg/kg/min and insulin drip at 0.5 units/h. Chest tubes x [address] Saturating 90% on room air. Patient's son, Ed, at bedside. All questions were answered. Patient
is some mild chest discomfort but denies SOB, BURGESS, nausea, fevers or chills.
Review of Systems
General: Other (Negative unless mentioned above)
Objective Data
Data Reviewed
Vital Signs / I&O / Oxygen:
Vital Signs
Temp Pulse Resp BP Pulse Ox
98.8 F 83 18 102/67 97
08/14/24 06:00 08/14/24 06:20 08/14/24 05:30 08/14/24 06:00 08/14/24 06:27
Intake and Output
08/13/24 08/14/24 08/15/24
06:59 06:59 06:59
Intake Total 960 / 960 2765.5 / 2765.5
Output Total 1450 / 1450 1650 / 1650
Balance -490 / -490 1115.5 / 1115.5
SaO2 [CPAP/PSV] 96
SaO2 [SIMV] 98
SaO2 97
Nasal Cannula flow liters per 2
minute
Physical Exam
General: Respiratory Distress (negative), Comfortable, Chills (negative) and Sweats (negative)
HEENT: Normocephalic and Anicteric
Cardiovascular: S1-S2 and Peripheral Edema (negative)
Respiratory: Clear, Wheeze (negative), Crackles (negative), Rhonchi (negative) and Non-Labored Respirations
GI: Soft, Non Distended, Non Tender and Normal Bowel Sounds
Neurology: Awake, Alert and Tremors (negative)
Skin: Warm and Dry
Labs/Micro/Reports
Lab Data
08/14/24 03:11
08/14/24 03:11
Laboratory Results
08/13/24 08/14/24
13:24 03:11
PT 18.7 H 15.9 H
INR 1.54 1.24
APTT 32.1
pH 7.43
pCO2 34 L
pO2 107
HCO3 22.6
O2 Delivery Level
--- NOTE | 2024-08-14 08:07 | W.PN.ANS.POP ---
Anesthesia Post Operative
- Anesthesia Post Op Note
Vital Signs Stable-See Nursing Note: Yes
Airway Patent: Yes
Adequate Pain Control: Yes
Change in Mental Status: No
Current Postoperative Nausea & Vomiting: No
Anesthesia Complications: No
General Anesthetic Recall: No
Unplanned Admission: No
Post Op Hydration Adequate: Yes
[2024-08-14 08:24] LABS: Glucose - Point of Care 134 mg/dl (70-99)
[2024-08-14 08:24] LABS: Glucose - Point of Care 99 mg/dl (70-99)
[2024-08-14] MEDS: BACTROBAN 2% OINTMENT 1 APPLIC NASAL ×2 (08:26→20:17)
[2024-08-14] MEDS: LIDOCAINE 4% PATCH 1 PATCH TOPICAL (08:36)
[2024-08-14] MEDS: NEURONTIN 100 MG PO ×3 (08:42→21:10)
[2024-08-14] MEDS: VITAMIN C 500 MG PO (08:42)
[2024-08-14] MEDS: PROTONIX 40 MG PO (08:42)
[2024-08-14] MEDS: PLAVIX 75 MG PO (08:43)
[2024-08-14] MEDS: SENOKOT-S 1 TABLET PO ×2 (08:43→19:19)
[2024-08-14] MEDS: FEOSOL 325 MG PO (08:44)
[2024-08-14] MEDS: LOW STRENGTH ASPIRIN 81 MG PO (08:44)
[2024-08-14] MEDS: NSS IV (08:45)
[2024-08-14 10:29] LABS: Glucose - Point of Care 109 mg/dl (70-99)
[2024-08-14 12:33] LABS: Glucose - Point of Care 106 mg/dl (70-99)
--- NOTE | 2024-08-14 16:00 | SUR.OPER ---
in and out of chair 2x. did well with second transfer. BPs soft and slightly light headed when sitting and standing. tolerated tho.
[2024-08-14] MEDS: LIPITOR 40 MG PO (19:19)
--- NOTE | 2024-08-14 20:50 | PTCARENOTE ---
Assumed care of pt from dayshift RN. Walking rounds completed. Pt AAOx3. Pt SR on the tele monitor. HR 80-90s. +Rub. BP stable. Palpable pulses throughout. Pt is 93% on RA. Lung sounds diminished B/L @ the base. Mediastinal CTx2 and R/L pleural CT
to -20 suction, no airleak noted at this time, and output WNL. Abdomen soft/nontender. +BS. Alvarez catheter C/D/I and draining yellow urine. All surgical sites stable. Right IJ cordis and PIV x1 C/D/I. Dobutamine infusing as ordered. No c/o pain at
this time. Pt assisted from the chair to the bed w/ assist x2. See worklist for full nursing assessment and interventions. Call hou within reach.
[2024-08-14] MEDS: FLOMAX 0.8 MG PO (21:10)
[2024-08-15] VITALS (20 sets, daily range): BP systolic 85–125; BP diastolic 54–93; PULSE 126; BMI 24.4
--- NOTE | 2024-08-15 00:05 | PTCARENOTE ---
Pt reassessed. Remains SR on the tele monitor. HR 70-80s. BP stable. Pt on 2 L NC. POX 97%. CT assessment unchanged. Alvarez catheter intact and draining yellow urine. No c/o pain at this time. Dobutamine infusing. Call hou within reach.
--- NOTE | 2024-08-15 02:39 | PTCARENOTE ---
Pt went into a-fib ~0210. HR 100-120s. BP 105/77. CTPA notified. Turn dobut down to 0.5 and watch for 30 mins.
[2024-08-15] MEDS: FLEXERIL 5 MG PO (03:47)
[2024-08-15 03:50] LABS: Mixed Venous O2 Saturation 69.8 %
[2024-08-15] MEDS: CORDARONE 103 MG IV (03:54)
--- NOTE | 2024-08-15 03:54 | W.PN.CT ---
Addendum entered and electronically signed by Semaj Cantu MD 08/15/24 09:24:
I saw and examined the patient.
The PA's note was reviewed and I agree with the note.
Comment:
POD#2 s/p CABG x 4
AF w/ RVR overngiht, given amio protocol, dobutamine OFF - MvO2 69.8 post
Remains in AF, current rate 96
D/C CTs
D/C shelby later today
Diruesis
OOB/IS/ambulate
Original Note:
Today's Communication / Plan
-
Plan:
-No major issues overnight. Hemodynamically and neurologically intact
-Pt went into a-fib with RVR (120's) this AM @ 0215
-Dobutamine gtt weaned to off @ 0300 following a-fib. Amiodarone bolus x 1 plus drip started
-BB was on hold while on Dobutamine gtt, remains on hold given soft BP
-H/H 8.8/26.1, monitor
-MVO2 this AM with dobutamine off is 69.8%, 24hrs U/O 850 mL
-Consider D/C of chest tubes: 2meds 60/105, R/L pleurals 125/210. CXR looks clear to my eyes without significant atelectasis/pleural effusion, no ptx. F/u official report
-Cont. current meds (ASA, Plavix, Lipitor, resume Amiodarone and BB last night d/t to bradycardia and dobutamine dependent)
-Telemetry phase
-Consider D/C of shelby today
-Maintain cordis another day
-Encourage use of IS
-OOB into chair/Ambulate
-Home likely in 2 days
Assessment / Plan
-
Assessment:
-S/p Median sternotomy/CABG x 4 (BLAYNE to LAD, GSV to D1, GSV to OM2, GSV to RPDA)/Endoscopic harvest/prep of RLE GSV, by Dr. Cantu, 08/13/24, pod#2
-Severe 3v CAD/70-80% distal LM
-ICM
-LVEF 45-50% per intraop MANISHA
-Sinus bradycardia (HR 55 bpm preop)
-HTN
-Hyperlipidemia
-Asthma/Eczema
-Sinusitis
-Seasonal allergies
-Codeine allergy
-Former tobacco use (quit 1969)
-Anxiety disorder
-GERD
-Diverticulosis
-Colon polyps S/p polypectomies, 02/18/23
-Prostate Ca s/p radiation therapy, 2021
-S/P B/L TKR, 04/02/10
-S/P R knee arthrotomy, 1963
-S/p Left heart catheterization, 08/11/24
-S/p Tonsillectomy
-Acute postop blood loss/Anemia (stable without blood transfusion)
-Acute postop thrombocytopenia (stable without active bleed)
-Acute postop atelectasis
-Acute postop hypovolemia with subsequent hypervolemia
-Acute postop a-fib with RVR while on dobutamine gtt @ 1 mcg
Discussed patient care with: Cardiology, Nursing, Respiratory Therapy, Pharmacy and Care Team
Subjective
Procedure
-S/p Median sternotomy/CABG x 4 (BLAYNE to LAD, GSV to D1, GSV to OM2, GSV to RPDA)/Endoscopic harvest/prep of RLE GSV, by Dr. Cantu, 08/13/24
-
Date of Service: August 15, 2024
Pt c/o incisional pain, otherwise feels well
Objective Data
-
PT 15.9 Sec (11.4-14.6) H 08/14/24 03:11
INR 1.24 08/14/24 03:11
APTT 32.1 Sec (23.4-35.0) 03/28/25 13:24
Vital Signs
Vital Signs
Temp Pulse Resp BP Pulse Ox
98.4 F 109 16 92/65 97
08/15/24 03:46 08/15/24 03:46 08/15/24 03:46 08/15/24 03:46 08/15/24 03:46
CT Intake/Output/Weight
08/14/24 08/14/24 08/15/24
06:59 18:59 06:59
Intake Total 905.2 / 2765.5 362.5 / 720.1 357.6 / 720.1
Output Total 600 / 1650 345 / 1050 705 / 1050
Balance 305.2 / 1115.5 17.5 / -329.9 -347.4 / -329.9
SaO2: 97 (2L)
Physical Exam
-
General: Awake, Oriented and AOx3
Cardiovascular: Irregular rate & rhythm (a-fib), No Murmurs, No Rub and No Gallop
Respiratory: Decreased Breath Sounds (at bases, otherwise clear)
Sternum: Stable
Incision: Clean, Dry, Intact and Dressing Intact
Extremities: Other (+trace edema)
Data Reviewed
-
Lab Results: Results Reviewed
Medications: Active Meds Reviewed
Chest X-Ray: Report Reviewed and Image Reviewed
ECG: Report Reviewed and Image Reviewed
[2024-08-15] MEDS: NSS 500 IV (03:59)
[2024-08-15 04:05] LABS: Hematocrit 26.1 % (39.0-52.0); Hemoglobin 8.8 g/dL (13.0-18.0); Mean Corp Hgb Conc. 33.7 g/dL (33.0-37.0); Mean Corpuscular Hgb 34.6 pg (27.0-31.0); Mean Corpuscular Volume 102.8 fL (80.0-94.0); Mean Platelet Volume 11.1 fL (7.4-10.4); Platelet Count 111 10^3/uL (130-400); Red Blood Cell Count 2.54 10^6/uL (4.70-6.10); Red Cell Dist. Width 13.1 % (11.5-14.5); White Blood Cell Count 13.3 10^3/uL (4.8-10.8)
[2024-08-15 04:08] LABS: Blood Urea Nitrogen 31 mg/dl (9-20); Calcium 8.8 mg/dl (8.4-10.2); Carbon Dioxide 29 mmol/L (22-30); Chloride 107 mmol/L (98-107); Estimated Creatinine Clearance 48 ml/min; Glucose 118 mg/dl (70-99); Magnesium 2.3 mg/dl (1.6-2.3); Potassium 4.3 mmol/L (3.5-5.1); Sodium 138 mmol/L (135-145); eGFR > 60.00
--- NOTE | 2024-08-15 04:19 | PTCARENOTE ---
Pt reassessed. A-fib on the tele monitor. HR 100s. Dobut off. Amio bolus x1. BP stable. Pt is 97% on [address] assessment unchanged and output WNL. Alvarez catheter intact and draining yellow urine. Pt repositioned in bed. All surgical sites stable.
Call hou within reach.
[2024-08-15] MEDS: CALCIUM GLUCONATE 130 MG IV (04:45)
[2024-08-15] MEDS: TYLENOL 1000 MG PO ×3 (05:11→22:07)
[2024-08-15] MEDS: CORDARONE 518 MG IV (05:12)
[2024-08-15] MEDS: PROTONIX 40 MG PO (08:09)
[2024-08-15] MEDS: PLAVIX 75 MG PO (08:09)
[2024-08-15] MEDS: NEURONTIN 100 MG PO ×3 (08:09→22:08)
[2024-08-15] MEDS: FEOSOL 325 MG PO (08:09)
[2024-08-15] MEDS: LIDOCAINE 4% PATCH 1 PATCH TOPICAL (08:11)
[2024-08-15] MEDS: PACERONE 200 MG PO ×3 (08:11→22:08)
[2024-08-15] MEDS: LOW STRENGTH ASPIRIN 81 MG PO (08:11)
[2024-08-15] MEDS: VITAMIN C 500 MG PO (08:12)
[2024-08-15] MEDS: SENOKOT-S 1 TABLET PO ×2 (08:12→20:44)
[2024-08-15] MEDS: BACTROBAN 2% OINTMENT 1 APPLIC NASAL ×2 (08:13→20:44)
[2024-08-15] MEDS: ProAmatine 5 MG PO (16:36)
[2024-08-15] MEDS: LIPITOR 40 MG PO (17:38)
--- NOTE | 2024-08-15 18:30 | PTCARENOTE ---
midodrine given. remains DTV. bladder scanned for 371. will continue to monitor.
--- NOTE | 2024-08-15 21:10 | PTCARENOTE ---
Assumed care of pt from dayshift RN. Walking rounds completed. Pt oriented to person, place, and time. SR on the tele monitor. HR 60-70s. BP stable. Palpable pulses throughout. Pt on RA. POX 94%. Lung sounds diminished B/L. Deep breathing and IS
encouraged. CT dressing intact. Abdomen soft/nontender. +BS. Pt stood at bedside to void then assisted back into bed w/ assist x2. All surgical sites stable. Right IJ cordis and PIVx1 intact. Amiodarone infusing as ordered. See worklist for full
nursing assessment and interventions. Call hou within reach.
[2024-08-15] MEDS: FLOMAX 0.8 MG PO (22:08)
[2024-08-16] VITALS (26 sets, daily range): BP systolic 95–122; BP diastolic 52–80; PULSE 66–88; O2SAT 94–95; BMI 24.5
--- NOTE | 2024-08-16 00:21 | PTCARENOTE ---
No acute changes in assessment. Pt SR on the tele monitor. BP stable. 96-98% on 2 L NC. No c/o pain at this time. Amiodarone infusing. Call hou within reach.
[2024-08-16 03:56] LABS: Ionized Calcium 1.28 mMOL/L (1.15-1.33)
--- NOTE | 2024-08-16 03:56 | W.PN.CT ---
Today's Communication / Plan
-
Plan:
-No major issues overnight. Hemodynamically and neurologically intact
-No further a-fib since ~9 hrs on POD#2. Will discuss oral anticoagulation moving forward
-Amiodarone gtt completed this AM @ 0500. Was on dobutamine gtt until POD#2 which may have exacerbated a-fib with RVR
-BP has been soft postop and required Midodrine yesterday. BP improving, will place Midodrine on PRN
-Consider 1u PRBC with 20mg IV lasix for h/h 8.2/23.9 given c/o lightheadedness/dizziness and requiring Midodrine for BP support
-Will hold AM dose of BB
-Pt was noted to be bradycardic @ 55 bpm preop. Currently NSR @ 61 bpm
-F/U small left apical ptx noted on cxr from yesterday
-Cont. current meds (ASA, Plavix, Lipitor, PO Amiodarone)
-Maintain cordis another day
-Encourage use of IS
-OOB into chair/Ambulate
-Home likely in 1-2 days
Assessment / Plan
-
Assessment:
-S/p Median sternotomy/CABG x 4 (BLAYNE to LAD, GSV to D1, GSV to OM2, GSV to RPDA)/Endoscopic harvest/prep of RLE GSV, by Dr. Cantu, 08/13/24, pod#3
-Severe 3v CAD/70-80% distal LM
-ICM
-LVEF 45-50% per intraop MANISHA
-Sinus bradycardia (HR 55 bpm preop)
-HTN
-Hyperlipidemia
-Asthma/Eczema
-Sinusitis
-Seasonal allergies
-Codeine allergy
-Former tobacco use (quit 1968)
-Anxiety disorder
-GERD
-Diverticulosis
-Colon polyps S/p polypectomies, 02/18/23
-Prostate Ca s/p radiation therapy, 2021
-S/P B/L TKR, 04/02/10
-S/P R knee arthrotomy, 1963
-S/p Left heart catheterization, 08/11/24
-S/p Tonsillectomy
-Acute postop blood loss/Anemia (stable without blood transfusion)
-Acute postop thrombocytopenia (stable without active bleed)
-Acute postop atelectasis
-Acute postop hypovolemia with subsequent hypervolemia
-Acute postop a-fib with RVR while on dobutamine gtt @ 1 mcg
Discussed patient care with: Cardiology, Nursing, Respiratory Therapy, Pharmacy and Care Team
Subjective
Procedure
-S/p Median sternotomy/CABG x 4 (BLAYNE to LAD, GSV to D1, GSV to OM2, GSV to RPDA)/Endoscopic harvest/prep of RLE GSV, by Dr. Catnu, 08/13/24
-
Date of Service: August 16, 2024
Pt c/o mild incisional pain and lightheadedness when OOB yesterday
Objective Data
-
PT 15.9 Sec (11.4-14.6) H 08/14/24 03:11
INR 1.24 08/14/24 03:11
APTT 32.1 Sec (23.4-35.0) 08/13/24 13:24
Vital Signs
Vital Signs
Temp Pulse Resp BP Pulse Ox
98 F 63 18 95/66 94
08/16/24 00:00 08/16/24 03:45 08/16/24 00:00 08/16/24 03:00 08/16/24 03:45
CT Intake/Output/Weight
08/15/24 08/15/24 08/16/24
06:59 18:59 06:59
Intake Total 523.9 / 886.4 139.8 / 353.4 213.6 / 353.4
Output Total 990 / 1335 310 / 960 650 / 960
Balance -466.1 / -448.6 -170.2 / -606.6 -436.4 / -606.6
SaO2: 94 (RA)
Physical Exam
-
General: Awake, Oriented and AOx3
Cardiovascular: Regular rate & rhythm, No Murmurs, No Rub and No Gallop
Respiratory: Decreased Breath Sounds (at bases, otherwise clear)
Sternum: Stable
Incision: Clean, Dry, Intact and Dressing Intact
Extremities: Other (+trace edema)
Data Reviewed
-
Lab Results: Results Reviewed
Medications: Active Meds Reviewed
Chest X-Ray: Report Reviewed and Image Reviewed
ECG: Report Reviewed and Image Reviewed
--- NOTE | 2024-08-16 03:58 | PTCARENOTE ---
No change in assessment. Pt SR on the tele monitor. HR 60s. BP stable. Pt 96% on 2 L NC. All surgical sites stable. Voided in the urinal. Labs drawn and sent. No c/o pain at this time. Amiodarone infusing as ordered. Call hou within reach.
[2024-08-16 04:13] LABS: Hematocrit 23.9 % (39.0-52.0); Hemoglobin 8.2 g/dL (13.0-18.0); Mean Corp Hgb Conc. 34.3 g/dL (33.0-37.0); Mean Corpuscular Hgb 34.9 pg (27.0-31.0); Mean Corpuscular Volume 101.7 fL (80.0-94.0); Mean Platelet Volume 11.1 fL (7.4-10.4); Platelet Count 109 10^3/uL (130-400); Red Blood Cell Count 2.35 10^6/uL (4.70-6.10); White Blood Cell Count 11.4 10^3/uL (4.8-10.8)
[2024-08-16 04:19] LABS: Blood Urea Nitrogen 24 mg/dl (9-20); Calcium 8.9 mg/dl (8.4-10.2); Carbon Dioxide 30 mmol/L (22-30); Chloride 108 mmol/L (98-107); Estimated Creatinine Clearance 58 ml/min; Glucose 111 mg/dl (70-99); Magnesium 2.1 mg/dl (1.6-2.3); Potassium 4.4 mmol/L (3.5-5.1); Sodium 139 mmol/L (135-145); eGFR > 60.00
[2024-08-16] MEDS: CALCIUM GLUCONATE 100 IV (04:25)
[2024-08-16] MEDS: TYLENOL 1000 MG PO ×3 (05:51→20:00)
[2024-08-16] MEDS: NON-FORMULARY ITEM 300 MG SC (07:55)
[2024-08-16] MEDS: BACTROBAN 2% OINTMENT 1 APPLIC NASAL ×2 (07:55→20:00)
[2024-08-16] MEDS: LIDOCAINE 4% PATCH 1 PATCH TOPICAL (07:56)
[2024-08-16] MEDS: PLAVIX 75 MG PO (07:57)
[2024-08-16] MEDS: PACERONE 200 MG PO ×3 (07:57→20:00)
[2024-08-16] MEDS: LOW STRENGTH ASPIRIN 81 MG PO (07:57)
[2024-08-16] MEDS: VITAMIN C 500 MG PO (07:57)
[2024-08-16] MEDS: PROTONIX 40 MG PO (07:57)
[2024-08-16] MEDS: FEOSOL 325 MG PO (07:57)
[2024-08-16] MEDS: SENOKOT-S 1 TABLET PO ×2 (07:58→20:00)
[2024-08-16] MEDS: MAGNESIUM OXIDE 500 MG PO ×2 (07:58→20:00)
[2024-08-16] MEDS: NSS IV (07:58)
[2024-08-16] MEDS: NEURONTIN 100 MG PO (07:58)
[2024-08-16] MEDS: ProAmatine 5 MG PO ×3 (08:00→18:10)
--- NOTE | 2024-08-16 08:00 | PTCARENOTE ---
Assumed care of patient. Pt assessed while he was sitting in the chair. Pt alert and oriented x4. Denies pain, shortness of breath and nausea. BELCHER with equal but weak strength. NSR on tele with rates in the 70s. BP 98/62. Heart tones audible.
Bilateral radial and DP pulses palpable. Trace lower extremity edema. POX 95% on RA. Lungs clear, diminished Right>Left. No cough noted. IS encouraged-1000mL achieved. Abdomen soft, nontender. +BS. Pt due to void for this RN, reports no issues.
Sternal incision covered with Antibacterial dressing, CDI. Old chest tube sites covered, CDI. Right groin puncture site approximated, KATELYNN. Right SVG harvest site approximated with skin glue, KATELYNN. Right IJ cordis intact infusing NSS KVO. Left forearm
20g PIV intact. See MAR for medication administration. See worklist for complete nursing assessment. Plan of care reviewed and patient in agreement.
--- NOTE | 2024-08-16 08:43 | W.PN.CD ---
Today's Communication / Plan
-
-Remains stable s/p CABG; brief episode of PAF yesterday morning--continue monitoring manager as patient may need to be placed on systemic anticoagulation if recurrence.
-Continue routine post-surgical care as directed by CT Surgery.
Impression / Plan
-
I/P: 83-year-old male with CAD, hypertension, dyslipidemia, prostate cancer and GERD who initially presented for outpatient coronary angiography. He was then found to have severe left main disease. He is in preparation for CABG.
CAD with severe left main disease and multivessel disease now s/p CABG with BLAYNE to LAD SVG to D1 SVG to OM2 and SVG to RPDA
-Remains stable s/p CABG; brief episode of PAF yesterday morning--continue monitoring manager as patient may need to be placed on systemic anticoagulation if recurrence.
-Continue statin and aspirin/Plavix.
-Continue routine post-surgical care as directed by CT Surgery.
Hypertension
-Metoprolol on hold as patient is now on midodrine.
Dyslipidemia
-Continue atorvastatin
Cath August 11 : CONCLUSIONS
1. Right dominant circulation with a densely calcified, 70-80% lesion in the distal aspect of the left main extending into both the LAD and circumflex with 70% blockages in the ostia of both vessels, and 80%, densely calcified lesion in the
proximal LAD immediately proximal to the master septal, and 80% lesion in a small OM1 ostium, subtotal occlusion of the mid RCA with bridging collaterals supplying a large posterolateral branch with PARAG II flow and a chronic total occlusion of the
RPDA which is supplied by collaterals from the LAD.
2. Normal filling pressures (LVEDP = 6 mmHg at 77.1 kg).
Physical Exam
Vital Signs/Labs
Vital Signs
Temp Pulse Resp BP Pulse Ox
97.7 F 66 16 98/62 95
08/16/24 08:00 08/16/24 08:00 08/16/24 08:00 08/16/24 07:48 08/16/24 08:00
08/15/24 08/16/24 08/17/24
06:59 06:59 06:59
Actual Weight 75 kg 75.2 kg
08/16/24 03:47
08/16/24 03:47
PT 15.9 Sec (11.4-14.6) H 08/14/24 03:11
INR 1.24 08/14/24 03:11
APTT 32.1 Sec (23.4-35.0) 08/13/24 13:24
Magnesium 2.1 mg/dl (1.6-2.3) 08/16/24 03:47
Physical Exam
Constitutional: No acute distress and Comfortable
EENT: Anicteric
Cardiovascular: Rhythm & rate is regular, Systolic murmur absent, Pedal edema present (trace) and S1S2 is normal
Respiratory: Respiratory effort normal and Lungs clear to auscul.
GI: Soft and Distention absent
Neuro/Psych: AO x 3
Other: Skin (Warm, dry, intact)
Data Reviewed
-
Date of Service: August 16, 2024
EKG: Tracing Personally Visualized and interpreted (Telemetry: Sinus rhythm)
Medical Tests (PFT, Pathology etc): Discussed with Nurse (at bedside), Discussed with Patient and Discussed with Family (Son (Navjot Boswell) at bedside)
Labs: Labs Reviewed by me
Critical Care Time (in minutes): 37
--- NOTE | 2024-08-16 11:38 | PTCARENOTE ---
Pt reassessed. Denies pain, sitting up in the chair, resting. NSR on tele with rates in the 60s-70s. BP122/69. POX 96% on RA. Surgical sites stable. Pt voiding adequate amounts of clear yellow urine in the urinal. 1unit PRBC infused, pt tolerated,
no infusion reaction noted. Cordis & PIV intact. No other acute changes.
--- NOTE | 2024-08-16 13:10 | CON.MD ---
Documented by User: Nicole Grullon DO, Resident 08/16/24 15:59
Consultation - Medical
-
Referring Provider: Claudine Richter CRNP
Chief Complaint: CAD s/p CABGx4
History of Present Illness:�Mr. Navjot Strong is an 83yo M pmh CAD, HTN, HLD who presented to ED on for CP. Troponins and ECG negative for ischemia at the time. Scheduled 08/11 for an elective heart catheterization with Dr. Booth. [facility] heart
cath revealed multivessel disease. 08/12 TTE revealed LVEF 55-60%, with no major changes since 11/2019. Underwent CABGx4 on 08/13.Extubated in CVICU. Dobutamine drip d/c'ed 08/14. 1 unit pRBCs transfused 08/16.
Past Medical History:�HTN, HLD, CAD, prostate cancer, GERD, eczema
Procedure History:�b/l knee replacements, tonsillectomy
Family History:�CAD
Social History:
Functional Level Premorbidly:�independent
Functional Level Currently:�mod assist - 2 person assist
Tobacco:�former
Alcohol: 2x/week
Drug use: Denies
Lives with: spouse, who had recent foot surgery
24-hour assistance available:�no
Number of floors: 1
# steps to enter:�0
Potential First floor set up: yes
Driving: yes
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
�
Allergies
Allergy/AdvReac Type Severity Reaction Status Date / Time
bee venom protein (honey bee) Allergy throat Verified 08/11/24 12:38
closing
and itching
ezetimibe [From Zetia] Allergy LEG Verified 08/11/24 22:23
SORENESS
hydrochlorothiazide Allergy THROAT Verified 08/11/24 12:38
[From Prinzide] SWELLING
hydromorphone HCl Allergy Hives Verified 08/11/24 12:38
[From Dilaudid]
lisinopril [From Prinzide] Allergy THROAT Verified 08/11/24 12:38
SWELLING
morphine [Morphine] Allergy Hives Verified 08/11/24 12:38
oxycodone HCl [From Percocet] Allergy Hives Verified 08/11/24 12:38
Sulfa (Sulfonamide Allergy Hives Verified 08/11/24 12:38
Antibiotics)
tramadol Allergy itch and Verified 08/11/24 12:38
difficulty
sleeping
Home Medications
aspirin 81 mg tablet,delayed release 81 mg PO QPM Blood Clot Prevention/Tx 09/01/16
atorvastatin 40 mg tablet 40 mg PO QPM High Cholesterol 09/01/16
nitroglycerin 0.4 mg sublingual tablet 0.4 mg sublingual [id number] PRN chest pain 09/01/16
spironolactone 25 mg tablet 12.5 mg PO DAILY Fluid Retention/Swelling 09/01/16
tamsulosin 0.4 mg capsule 0.8 mg PO HS Urinary Issue 01/30/22
amlodipine 5 mg tablet 2.5 mg PO DAILY Blood Pressure 03/26/23
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
polyethylene glycol 3350 17 gram oral powder packet (Miralax) 17 g PO DAILYPRN PRN constipation 03/26/23
Probiotic 2 tab PO DAILY Supplement 08/11/24
diphenhydramine HCl 25 mg capsule (Benadryl) 25 mg PO HS PRN sleep 08/11/24
diphenhydramine HCl 25 mg tablet (Benadryl Allergy) 25 mg PO HS Allergies 08/11/24
epinephrine 0.3 mg/0.3 mL injection, auto-injector 0.3 mg IM DAILYPRN PRN allergic reaction 08/11/24
esomeprazole magnesium 40 mg capsule,delayed release (Nexium) 40 mg PO BID Gastrointestinal Issue 08/11/24
Review of Systems:
Constitutional: fatigue,memory problems
�Eye: (x) Normal _
�Ear/Nose/Throat: difficulty speaking
�Respiratory: (x) Normal _
�Cardiovascular: (x) Normal _
�Gastrointestinal: constipation, last BM 5 days ago
�Genitourinary: (x) Normal _
�Musculoskeletal: (x) Normal _
�Integumentary: (x) Normal _
�Neurologic: (x) Normal�_
�Psychiatric: (x) Normal _
�Endocrine: (x) Normal _
�Hematologic/Lymphatic: (x) Normal _
�Allergic/Immunologic: (x) Normal _
Vitals:
BP 122/69
HR 67
RR 16
T 97.8F
O2 sat 96%
Physical Exam:
General Appearance/Observation: Well-developed, well-nourished individual in no apparent distress.
Pain/Comfort Assessment: Denies�
Mood/Affect: Appropriate
Integumentary/Operative Site:
� �Pressure Ulcer Evaluation: absent over heels.
� �If Present: _ Location _ Stage _ Location _ Stage
� �Other Type of Wound: absent
� �If present, Type: _x Operative Site _ IV Access _ Tattoo _ Lesion _ Other
� �Describe: sternotomy, no signs of wound dehiscence
Eyes: Conjunctiva/Lids: normal� � �Pupils: pupils equal round and reactive to light and Accommodation
Ears/Nose/Throat: oral mucosa moist,� throat clear.� � � � � � � Lips/Teeth/Gums: normal
Neck: No muscle spasm or tenderness
Cardiovascular: Heart: regular, no murmur
Pulses: dorsalis pedis 2+ bilaterally
Respiratory: Respiratory Effort/Chest Expansion: normal� � � � �Auscultation: clear to auscultation bilaterally
Gastrointestinal: abdomen not tender, no distension, hypoactive abdominal bowel sounds
Genitourinary: No Alvarez
Rectal Exam: Deferred
Extremities: Edema: None Cyanosis: None Trophic changes: None
Neurology Exam:
Orientation: Alert, Oriented to self, Time, Place
Memory: Intact immediately and at 3 minutes
Higher cortical function
Repetition: Intact
Comprehension: Intact
Two step command: Intact
Naming: Intact
Cranial Nerves:
� �CNII: Pupillary light reflex: Intact� � Visual Field: Intact
� �CN III, IV, : Extraocular muscles: Intact�
� �CN V: Facial Sensation at Forehead: Intact, Maxilla: Intact, Mandible: Intact�
� �CN VII: Facial movement: L facial droop
� �CN VIII: Hearing: Normal
� �CN IX/X: Speech & swallow: Normal, Position of Uvula: Midline
� �CN XI: Shoulder shrug: Symmetric
� �CN XII: Tongue protrusion: Midline
Sensory:
� �Light touch: Intact in bilateral upper and lower extremities
� �
Reflexes:
� �Biceps: 2+ bilaterally
� �Brachioradialis: 2+ bilaterally
� �Triceps: 2+ bilaterally
� �Patellar: 2+ bilaterally
� �Achilles: 2+ bilaterally
� �Babinski: Down going bilaterally
� �Clonus: None
� �Gerber: Negative bilaterally
Cerebellar: Dysmetria/Ataxia: unable to stand, impaired finger to nose
Musculoskeletal:
�Motor: (Manual muscle scale 0-5)
Muscle SA EF WE EE FF FA HF KE DF EHL PF
Right� ��5 5 5 5 5 5 5 5 5 5 5
Left 5 5 5 5 5 5 5 5 5 5 5
Tone: Normal in all extremities
Range of Motion: Passively within normal limits in all extremities
Diagnostic Results: as per HPI
Assessment
CAD s/p CABGx4
HTN
HLD
GERD
prostate cancer
eczema
macrocytic anemia
thrombocytopenia
Plan�
PM&R PT/OT to increase independence with ADLs, improve balance, coordination, endurance, strength, mobility, community reintegration, decreased burden of care on others and family education.
L facial weakness, dysmetria,difficult speaking: CT head, consult speech therapy
HTN: continue medications, monitor closely
HLD: Statin
Coronary artery disease : Aspirin, statin, beta-darline�
STEMI S/P CABG x 4: Sternal precautions.� Aspirin, statin, Xarelto, BP control.� Monitor incision, pain control.�
Bilateral lower extremity edema: Consider TEDS as able. Increased fluid will cause more force requirement to move lower extremities which requires more strength and increases fatigue.
Anemia: Likely multifactorial.� Continue to monitor.
Thrombocytopenia: Continue to monitor. With platelets less than 50,000 recommend keeping therapies to bedside. If platelets less than 20,000 will use further caution with activity levels and hold therapy for platelets less than 10,000.
Skin: monitor for pressure sores/rashes/lesions.
Pain: acetaminophen or oxycodone as needed.
Bowel: Colace and Senna, PRN bisacodyl.
DVT Prophylaxis: SCDs
Pulmonary: Incentive spirometry
Safety: Continue to reinforce assistance with all transfers.
Code Status:� Full code
Dispo (date/plan/equipment needs): acute rehab
Functional and Medical Goals: Modified Independent with ADL�s, ambulation, transfers
SUMMARY
Things that must be addressed in Hospital prior to discharge:
1.� � Consult speech therapy
2. Patient must be stable on oral pain medications.
3.� � Blood pressure must be less than 180 systolic and 100 diastolic for 24 hours before being stable for transfer to SNF/acute rehab.
Discharge Destination: Acute rehab
Summary of recommendations:
- Discharge Destination: acute rehab
Pt is a moderate assist of 2 when he was previously independent. His recently had surgery so she is unable to aid his recovery. Per PT, pt will require 3+ hours /day of therapy
Will continue to follow patient.
Thank you for allowing me to care for your patient. Please contact me with any questions or concerns.
This note was dictated using a voice recognition system. Please excuse any typographical errors from physical sciences professor. If you believe there are any discrepancies, please notify our office.

Documented by User: Michael Kay MD 08/16/24 19:52
Consultation - Medical
-
Referring Provider: Dr. Semaj Cantu
Chief Complaint: CAD s/p CABGx4
History of Present Illness:�Mr. Navjot Strong is an 83yo M pmh CAD, HTN, HLD who presented to ED on 08/06 for CP. Troponins and ECG negative for ischemia at the time. Scheduled 08/11 for an elective heart catheterization with Dr. Booth. L heart
cath revealed multivessel disease. 08/12 TTE revealed LVEF 55-60%, with no major changes since 11/2019. Underwent CABGx4 on 08/13.Extubated in CVICU. Dobutamine drip d/c'ed 08/14. 1 unit pRBCs transfused 08/16. Patient denies any chest pain or
shortness of breath. He has trouble with his thinking and remembering, he is not sure why. Notes some tingling of his hands after surgery but they are better now. Having trouble with the volume of his voice, not harsh or trouble speaking, not
able to get the volume to go louder.
Past Medical History:�HTN, HLD, CAD, prostate cancer, GERD, eczema
Procedure History:�b/l knee replacements, tonsillectomy
Family History:�CAD
Social History:
Functional Level Premorbidly:�independent
Functional Level Currently:�mod assist - 2 person assist
Tobacco:�former
Alcohol: 2x/week
Drug use: Denies
Lives with: spouse, who had recent foot surgery
24-hour assistance available:�no
Number of floors: 1
# steps to enter:�0
Potential First floor set up: yes
Driving: yes
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
Allergies
Allergy/AdvReac Type Severity Reaction Status Date / Time
bee venom protein (honey bee) Allergy throat Verified 08/11/24 12:38
closing
and itching
ezetimibe [From Zetia] Allergy LEG Verified 08/11/24 22:23
SORENESS
hydrochlorothiazide Allergy THROAT Verified 08/11/24 12:38
[From Prinzide] SWELLING
hydromorphone HCl Allergy Hives Verified 08/11/24 12:38
[From Dilaudid]
lisinopril [From Prinzide] Allergy THROAT Verified 08/11/24 12:38
SWELLING
morphine [Morphine] Allergy Hives Verified 08/11/24 12:38
oxycodone HCl [From Percocet] Allergy Hives Verified 08/11/24 12:38
Sulfa (Sulfonamide Allergy Hives Verified 08/11/24 12:38
Antibiotics)
tramadol Allergy itch and Verified 08/11/24 12:38
difficulty
sleeping
Home Medications
aspirin 81 mg tablet,delayed release 81 mg PO QPM Blood Clot Prevention/Tx 09/01/16
atorvastatin 40 mg tablet 40 mg PO QPM High Cholesterol 09/01/16
nitroglycerin 0.4 mg sublingual tablet 0.4 mg sublingual [id number] PRN chest pain 09/01/16
spironolactone 25 mg tablet 12.5 mg PO DAILY Fluid Retention/Swelling 09/01/16
tamsulosin 0.4 mg capsule 0.8 mg PO HS Urinary Issue 01/30/22
amlodipine 5 mg tablet 2.5 mg PO DAILY Blood Pressure 03/26/23
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
polyethylene glycol 3350 17 gram oral powder packet (Miralax) 17 g PO DAILYPRN PRN constipation 03/26/23
Probiotic 2 tab PO DAILY Supplement 08/11/24
diphenhydramine HCl 25 mg capsule (Benadryl) 25 mg PO HS PRN sleep 08/11/24
diphenhydramine HCl 25 mg tablet (Benadryl Allergy) 25 mg PO HS Allergies 08/11/24
epinephrine 0.3 mg/0.3 mL injection, auto-injector 0.3 mg IM DAILYPRN PRN allergic reaction 08/11/24
esomeprazole magnesium 40 mg capsule,delayed release (Nexium) 40 mg PO BID Gastrointestinal Issue 08/11/24
Review of Systems:
Constitutional: fatigue
�Eye: (x) Normal _
�Ear/Nose/Throat: difficulty speaking
�Respiratory: (x) Normal _
�Cardiovascular: (x) Normal _
�Gastrointestinal: constipation, last BM 5 days ago
�Genitourinary: (x) Normal _
�Musculoskeletal: (x) Normal _
�Integumentary: (x) Normal _
�Neurologic: (x) abNormal�_memory problems, trouble with voice volume, tingling in hands went away.
�Psychiatric: (x) Normal _
�Endocrine: (x) Normal _
�Hematologic/Lymphatic: (x) Normal _
�Allergic/Immunologic: (x) Normal _
Vitals:
BP 122/69
HR 67
RR 16
T 97.8F
O2 sat 96%
Temp Pulse Resp BP Pulse Ox
97.4 F 74 16 113/73 92
08/16/24 15:00 08/16/24 18:09 08/16/24 15:00 08/16/24 18:09 08/16/24 15:50
Height 5 ft 9 in
Actual Weight 75.2 kg
Body Mass Index (BMI) 24.5
Physical Exam:
General Appearance/Observation: Well-developed, well-nourished male in no apparent distress.
Pain/Comfort Assessment: Denies�
Mood/Affect: Slightly flat
Integumentary/Operative Site:
� �Pressure Ulcer Evaluation: absent over heels.
� �If present, Type: _x Operative Site
� �Describe: sternotomy, no signs of wound dehiscence, drain sites intact, has right medial knee incision healing well.
Eyes: Conjunctiva/Lids: normal� � �Pupils: pupils equal round and reactive to light and Accommodation
Ears/Nose/Throat: oral mucosa moist,� throat clear.� � � � � � � Lips/Teeth/Gums: normal
Cardiovascular: Heart: regular, no murmur
Pulses: dorsalis pedis 2+ bilaterally
Respiratory: Respiratory Effort/Chest Expansion: normal� � � � �Auscultation: clear to auscultation bilaterally
Gastrointestinal: abdomen not tender, no distension, hypoactive abdominal bowel sounds
Genitourinary: No Alvarez
Extremities: Edema: None Cyanosis: None Trophic changes: None
Neurology Exam:
Orientation: Alert, Oriented to self, Time, Place
Memory: Intact for recent medical concerns
Comprehension: Mildly impaired
Two step command: Intact
Cranial Nerves:
� �CNII: Pupillary light reflex: Intact� � Visual Field: Intact
� �CN III, IV, : Extraocular muscles: Intact�
� �CN V: Facial Sensation at Forehead: Intact, Maxilla: Intact, Mandible: Intact�
� �CN VII: Facial movement: Left lower facial droop
� �CN VIII: Hearing: Normal
� �CN IX/X: Speech & swallow: No dysarthria, mildly low volume of voice position of Uvula: Midline
� �CN XI: Shoulder shrug: Symmetric
� �CN XII: Tongue protrusion: Midline
Sensory:
� �Light touch: Intact in bilateral upper and lower extremities, no extinction to double simultaneous stimulation
� �
Reflexes:
� �Biceps: 2+ bilaterally
� �Brachioradialis: 2+ bilaterally
� �Triceps: 2+ bilaterally
� �Patellar: 2+ bilaterally
� �Achilles: 2+ bilaterally
� �Babinski: Down going bilaterally
� �Clonus: None
� �Gerber: Negative bilaterally
Cerebellar: Dysmetria/Ataxia: impaired finger to nose right more than left
Musculoskeletal: �Motor: (Manual muscle scale 0-5)
Musculoskeletal:
Motor: (Manual muscle scale 0-5)
Muscle SA EF WE EE FF FA HF KE DF EHL PF
Right� >3 5 >3 5 5 4 5 5 5 5
Left >3 5 >3 5 5 4 5 5 5 5
Tone: Normal in all extremities
Range of Motion: Passively within normal limits in all extremities
Diagnostic Results: as per HPI
Assessment
CAD s/p CABGx4
HTN
HLD
GERD
prostate cancer
eczema
macrocytic anemia
thrombocytopenia
83 y/o M PMH (CAD, HTN, HLD, Prostat CA, GERD, eczema) with 08/06 CP with cardiac cath 08/11 noting multivessel disease S/P CABGx4 on 08/13 with postoperative anemia resulting in ADL and ambulatory dysfunction. Patient having difficulty with volume
of voice, thinking/memory, mild left lower facial weakness and ataxia.
Plan�
PM&R PT/OT to increase independence with ADLs, improve balance, coordination, endurance, strength, mobility, community reintegration, decreased burden of care on others and family education.
Left facial weakness, dysmetria ,difficult speaking loudly, left facial weakness: CT head, consult speech therapy, - spoke with CT surgery
HTN: continue medications, monitor closely
HLD: Statin
Coronary artery disease: Aspirin, statin, beta-darline�
STEMI S/P CABG x 4: Sternal precautions.� Aspirin, statin, Xarelto, BP control.� Monitor incision, pain control.�
Macrocytic postoperative Anemia: 8.2 from 8.8, consider transfusion less than 8, monitor.
Thrombocytopenia: Continue to monitor. If platelets less than 50,000 recommend keeping therapies to bedside. If platelets less than 20,000 will use further caution with activity levels and hold therapy for platelets less than 10,000.
Leukocytosis: resolving
Skin: monitor for pressure sores/rashes/lesions.
Pain: acetaminophen as needed. Stop gabapentin.
Bowel: Colace and Senna, PRN bisacodyl.
DVT Prophylaxis: SCDs, suggest chemoprophylaxis if OK with surgery.
Pulmonary: Incentive spirometry
Safety: Continue to reinforce assistance with all transfers.
Code Status:� Full code
Dispo (date/plan/equipment needs): Acute inpatient rehabilitation. Patient is a moderate assist of 2 when he was previously independent. His recently had surgery so she is unable to aid his recovery. Per PT, pt will require 3+ hours /day of
therapy
Functional and Medical Goals: Modified Independent with ADL�s, ambulation, transfers
SUMMARY:
1.� � Discharge Destination: Acute rehab
2. Consider CT head for possible CVA (Left facial weakness, dysmetria ,difficult speaking loudly)
3.� � DVT Prophylaxis: suggest chemoprophylaxis if OK with surgery.
4. Macrocytic postoperative Anemia: 8.2 from 8.8, consider transfusion less than 8, monitor.
5. Consult speech therapy for cognitive and speech concerns
6. Thrombocytopenia: Continue to monitor. If platelets less than 50,000 recommend keeping therapies to bedside. If platelets less than 20,000 will use further caution with activity levels and hold therapy for platelets less than 10,000.
Will continue to follow patient.
Thank you for allowing me to care for your patient. Please contact me with any questions or concerns.
I personally performed a history and physical exam of the patient and discussed management with the resident. I reviewed the resident's note and agree with the documented findings and plan of care with changes made as above.
--- NOTE | 2024-08-16 15:24 | CM ---
Reviewed chart. Met with Mr. Landin to review discharge plans. Reviewed acute rehab. at [facility]. He waAs agreeable to having a referral made to [facility]. Telephone call to spouse, Soha to review discharge plans. Reviewed acute rehab. and SNF
Rehab. She was also agreeable to having a referral made to [facility]. at [place]. Telephone call to [facility] at [place] Liaison to make the referral. Sent the referral. Medical work-up in progress. The [facility] at [place] when medically stable.
--- NOTE | 2024-08-16 16:00 | PTCARENOTE ---
Pt reassessed while he was lying in bed. Slight left facial droop, CT MECHANICAL ASSEMBLER notified. NSR with rates in the 70s. BP 112/63. POX 93% on RA. Old chest tube site dressing removed, approximated with sutures intact, KATELYNN. Assisted with 1 assist to stand and
ambulate in the [place]. No other neuro deficits noted. CT MECHANICAL ASSEMBLER at bedside to eval pt.
[2024-08-16] MEDS: MILK OF MAGNESIA 30 ML PO (16:02)
[2024-08-16] MEDS: LIPITOR 40 MG PO (18:10)
[2024-08-16] MEDS: FLOMAX 0.8 MG PO (20:00)
--- NOTE | 2024-08-16 20:00 | PTCARENOTE ---
assumed care of pt from previous RN. pt A&Ox4, resting in bed at time of assessment. SR on tele-monitor, occasional PACs. POX 94% on RA. abd s/n, +BS. pt confirms passing gas. voiding clear, yellow urine in urinal. all surgical sites stable, CDI. R
IJ cordis w/ KVO. PIV intact. plan of care discussed w/ pt, pt in agreement. see worklist for complete nursing assessment, interventions, VS, and I&Os.
[2024-08-17] VITALS (11 sets, daily range): BP systolic 105–138; BP diastolic 64–79; PULSE 69–82; O2SAT 95; BMI 24.5
--- NOTE | 2024-08-17 00:15 | PTCARENOTE ---
assessment remains unchanged. VSS. no c/o pain at this time.
--- NOTE | 2024-08-17 01:06 | W.PN.CT ---
Today's Communication / Plan
-
Plan:
-No major issues overnight. Hemodynamically and neurologically intact. No focal neuro deficits noted
-No further a-fib since ~9 hrs on POD#2. Cardiology recommend oral anticoagulation if further a-fib
-BP has been soft postop and required Midodrine yesterday. BP improving, will place Midodrine on PRN
-Received 1u PRBC yesterday for h/h 8.2/23.9, h/h 9.8/28 today
-Will hold AM dose of BB
-Pt was noted to be bradycardic @ 55 bpm preop. Currently NSR @ 61 bpm
-2-view cxr today. F/U tiny left apical ptx noted on cxr from yesterday per Radiology
-Cont. current meds (ASA, Plavix, Lipitor, PO Amiodarone)
-D/C cordis
-Encourage use of IS
-OOB into chair/Ambulate
-PT/OT recommend acute rehab placement
-Likely [facility] placement in 1-2 days
Assessment / Plan
-
Assessment:
-S/p Median sternotomy/CABG x 4 (BLAYNE to LAD, GSV to D1, GSV to OM2, GSV to RPDA)/Endoscopic harvest/prep of RLE GSV, by Dr. Cantu, 08/13/24, pod#4
-Severe 3v CAD/70-80% distal LM
-ICM
-LVEF 45-50% per intraop MANISHA
-Sinus bradycardia (HR 55 bpm preop)
-HTN
-Hyperlipidemia
-Asthma/Eczema
-Sinusitis
-Seasonal allergies
-Codeine allergy
-Former tobacco use (quit 1968)
-Anxiety disorder
-GERD
-Diverticulosis
-Colon polyps S/p polypectomies, 02/18/23
-Prostate Ca s/p radiation therapy, 2021
-S/P B/L TKR, 04/02/10
-S/P R knee arthrotomy, 1964
-S/p Left heart catheterization, 08/11/24
-S/p Tonsillectomy
-Acute postop blood loss/Anemia (stable without blood transfusion)
-Acute postop thrombocytopenia (stable without active bleed)
-Acute postop atelectasis
-Acute postop hypovolemia with subsequent hypervolemia
-Acute postop a-fib with RVR while on dobutamine gtt @ 1 mcg
Discussed patient care with: Cardiology, Nursing, Respiratory Therapy, Pharmacy and Care Team
Subjective
Procedure
-S/p Median sternotomy/CABG x 4 (BLAYNE to LAD, GSV to D1, GSV to OM2, GSV to RPDA)/Endoscopic harvest/prep of RLE GSV, by Dr. Cantu, 08/13/24
-
Date of Service: August 17, 2024
Pt c/o mild incisional pain, otherwise feels well. Denies further lightheadedness/dizziness, states he's just wobbly on feet
Objective Data
-
PT 15.9 Sec (11.4-14.6) H 08/14/24 03:11
INR 1.24 08/14/24 03:11
APTT 32.1 Sec (23.4-35.0) 08/13/24 13:24
Vital Signs
Vital Signs
Temp Pulse Resp BP Pulse Ox
97.9 F 67 16 105/66 92
08/17/24 00:00 08/17/24 00:33 08/17/24 00:00 08/17/24 00:33 08/17/24 00:33
CT Intake/Output/Weight
08/16/24 08/16/24 08/17/24
06:59 18:59 06:59
Intake Total 277.0 / 416.8 840 / 900 60 / 900
Output Total 850 / 1160 850 / 1950 1100 / 1950
Balance -573.0 / -743.2 -10 / -1050 -1040 / -1050
SaO2: 92 (RA)
Physical Exam
-
General: Awake, Oriented and AOx3
Cardiovascular: Regular rate & rhythm, No Murmurs, No Rub and No Gallop
Respiratory: Decreased Breath Sounds (at bases, otherwise clear)
Sternum: Stable
Incision: Clean, Dry, Intact and Dressing Intact
Extremities: Other (+trace edema)
Data Reviewed
-
Lab Results: Results Reviewed
Medications: Active Meds Reviewed
Chest X-Ray: Report Reviewed and Image Reviewed
ECG: Report Reviewed and Image Reviewed
--- NOTE | 2024-08-17 04:25 | PTCARENOTE ---
no acute changes. VSS. AM labs collected and sent.
[2024-08-17 04:40] LABS: Ionized Calcium 1.22 mMOL/L (1.15-1.33)
[2024-08-17 05:07] LABS: Hemoglobin 9.8 g/dL (13.0-18.0); Mean Corpuscular Hgb 34.6 pg (27.0-31.0); Mean Corpuscular Volume 98.9 fL (80.0-94.0); Mean Platelet Volume 11.1 fL (7.4-10.4); Platelet Count 114 10^3/uL (130-400); Red Blood Cell Count 2.83 10^6/uL (4.70-6.10); Red Cell Dist. Width 14.4 % (11.5-14.5); White Blood Cell Count 9.7 10^3/uL (4.8-10.8)
[2024-08-17 05:30] LABS: Blood Urea Nitrogen 19 mg/dl (9-20); Calcium 8.7 mg/dl (8.4-10.2); Carbon Dioxide 29 mmol/L (22-30); Chloride 107 mmol/L (98-107); Estimated Creatinine Clearance 64 ml/min; Glucose 96 mg/dl (70-99); Potassium 4.1 mmol/L (3.5-5.1); Sodium 140 mmol/L (135-145); eGFR > 60.00
[2024-08-17] MEDS: TYLENOL 1000 MG PO ×3 (06:16→21:16)
[2024-08-17] MEDS: CALCIUM GLUCONATE 130 MG IV (06:35)
--- NOTE | 2024-08-17 07:16 | PTCARENOTE ---
Pt received from outgoing RN, pt aaox4, in chair, nsr, ra, no c/o pain, cordis, piv, plan for [facility] today or tomrrow.
[2024-08-17] MEDS: LIDOCAINE 4% PATCH 1 PATCH TOPICAL (08:12)
[2024-08-17] MEDS: SENOKOT-S 1 TABLET PO (08:12)
[2024-08-17] MEDS: LOW STRENGTH ASPIRIN 81 MG PO (08:12)
[2024-08-17] MEDS: BACTROBAN 2% OINTMENT 1 APPLIC NASAL (08:13)
[2024-08-17] MEDS: PACERONE 200 MG PO ×3 (08:13→21:16)
[2024-08-17] MEDS: VITAMIN C 500 MG PO (08:13)
[2024-08-17] MEDS: FEOSOL 325 MG PO (08:13)
[2024-08-17] MEDS: MAGNESIUM OXIDE 500 MG PO ×2 (08:13→19:51)
[2024-08-17] MEDS: PLAVIX 75 MG PO (08:13)
[2024-08-17] MEDS: PROTONIX 40 MG PO (08:13)
[2024-08-17] MEDS: NSS IV (09:03)
--- NOTE | 2024-08-17 09:11 | W.PN.CD ---
Today's Communication / Plan
-
Cont post-op care
OOB and ambulate as able
BP improving consider restart of anti-HTN
Impression / Plan
-
I/P: 83-year-old male with CAD, hypertension, dyslipidemia, prostate cancer and GERD who initially presented for outpatient coronary angiography. He was then found to have severe left main disease. He is in preparation for CABG.
CAD with severe left main disease and multivessel disease now s/p CABG with BLAYNE to LAD SVG to D1 SVG to OM2 and SVG to RPDA
-Remains stable s/p CABG; brief episode of PAF yesterday over the weekend
-Continue statin and aspirin/Plavix.
-Continue routine post-surgical care as directed by CT Surgery.
Hypertension
-Metoprolol on hold as patient is now on midodrine.
Dyslipidemia
-Continue atorvastatin
Cath August 11 : CONCLUSIONS
1. Right dominant circulation with a densely calcified, 70-80% lesion in the distal aspect of the left main extending into both the LAD and circumflex with 70% blockages in the ostia of both vessels, and 80%, densely calcified lesion in the
proximal LAD immediately proximal to the master septal, and 80% lesion in a small OM1 ostium, subtotal occlusion of the mid RCA with bridging collaterals supplying a large posterolateral branch with PARAG II flow and a chronic total occlusion of the
RPDA which is supplied by collaterals from the LAD.
2. Normal filling pressures (LVEDP = 6 mmHg at 77.1 kg).
Subjective: feels well brain is foggy from anesthesia but feels it is improving
Physical Exam
Vital Signs/Labs
Vital Signs
Temp Pulse Resp BP Pulse Ox
97.8 F 70 18 136/79 95
08/17/24 08:00 08/17/24 08:11 08/17/24 08:00 08/17/24 08:11 08/17/24 08:11
08/16/24 08/17/24 08/18/24
06:59 06:59 06:59
Actual Weight 165 lb 12.602 oz 165 lb 12.602 oz
08/17/24 04:22
08/17/24 04:22
PT 15.9 Sec (11.4-14.6) H 08/14/24 03:11
INR 1.24 08/14/24 03:11
APTT 32.1 Sec (23.4-35.0) 08/13/24 13:24
Magnesium 2.0 mg/dl (1.6-2.3) 08/17/24 04:22
Physical Exam
Constitutional: No acute distress and Comfortable
EENT: Anicteric
Cardiovascular: Rhythm & rate is regular and Pedal edema is absent
Respiratory: Respiratory effort normal and Lungs clear to auscul.
GI: Soft
Neuro/Psych: AO x 3
Data Reviewed
-
Date of Service: August 17, 2024
Medical Decision Making: Reviewed Test Results
EKG: Tracing Personally Visualized and interpreted (sr)
Echo: Report Reviewed by me
Labs: Labs Reviewed by me
--- NOTE | 2024-08-17 09:35 | PTOTSP ---
Speech Therapy Evaluation:
Pt presents with grossly functional oropharyngeal swallow at bedside with no overt s/sx of aspiration, however cannot r/o silent aspiration given limitations at bedside and potential CNX involvement with mildly hoarse vocal quality (slowly
improving) and reduced velar elevation on R. Despite risk of silent aspiration s/p CABG x4, pt's most recent CXR without PNA, WBC WNL, pt on room air, pt afebrile, and pt passed 3oz swallow screen.
Recommend:
1. Continue IDDSI Level 7 (regular) solids and thin liquids
2. Medications as tolerated
3. Strict aspiration and reflux precautions
4. LOCAL BULK DRIVER to follow to monitor tolerance of current diet and overall medical presentation (labs, vitals, imaging, etc.) to determine if instrumental assessment warranted
--- NOTE | 2024-08-17 10:12 | PTCARENOTE ---
Rt IR cordis Dced.
--- NOTE | 2024-08-17 10:47 | W.DCSUMMARY ---
Discharge Summary
Discharge Data
Date of Admission: 08/11/24
Date of Discharge: 08/18/24
Total time spent discharging patient (in min): 40
-
Pending Results: No
Hospital Course
Primary care physician:
Dr. Marquise Vera
Outpatient conference center coordinator:
Dr. Louie
Inpatient consultants:
CBC, milk pasteurizer, anesthesia, physiatry
Procedures:
1. CABG x 4 (BLAYNE to LAD, GSV to D1, GSV to OM2, GSV to RPDA)/Endoscopic harvest/prep of RLE GSV, by Dr. Cantu, 08/13/24
Primary Diagnosis:
1. Multivessel coronary disease
Secondary Diagnoses:
1. ICM w/ LVEF 45-50%
2. Hypertension
3.Hyperlipidemia
4. Asthma
5. Former tobacco use (quit 1968)
6. Anxiety disorder
7. GERD
8. Diverticulosis
9. Prostate Ca s/p radiation therapy, 2021
HPI: 83 y/o male presented initially for a elective left heart cath was found to have LM disease and traned to the CV[facility] for CABG on 08/13.
Hospital course: Patient was initially admitted to [facility] on 08/11 for a left heart cath due to chest pain and patient was found to have multivessel disease. Patient was worked up and was taken to the CV OR by Dr. Cantu on 08/13 and
received a CABG x 4. Postoperatively patient was on levo, dobutamine, insulin, and Precedex infusions. Precedex was weaned off and patient was extubated by 1800 that day. On 08/14 postoperative day 1 patient's dobutamine was weaned to 1 and
transitioned off his insulin drip. On 08/15 postoperative day 2 patient had an episode episode of atrial fibrillation and received an amnio bolus and drip and converted to sinus rhythm after 9 hours. Patient was then weaned off dobutamine.
Patient's chest tubes were removed and he was started on midodrine for low blood pressures and lightheadedness. On 08/16 postoperative day 3 patient got 1 unit of packed red blood cells for hemoglobin of 8.2 and midodrine was weaned off. On 08/17
postoperative day 4 patient's Cordis was removed and he had a small bowel movement. 2 view chest x-ray remained stable with small bilateral effusions. On 08/18 patient remained hemodynamically stable was deemed stable for discharge to acute rehab.
Home medication changes:
see below
Discharge Plan
-
Patient Disposition: Acute Rehab Facility
Discharge Diagnosis/Procedures: Cardiac cath/ CABG x 4
Condition: Good
Diet: Low Cholesterol
Activity: No strenuous activity
Additional Activity: or heavy lifting greater than 10lbs, no sexual activity. If you have chest pain call 911
Driving Restrictions: No driving for 24 hours
Bathing Restrictions: OK to Shower
Other Services: Cardiac Rehab
Specialty Instructions: Weigh Daily- Call MD for wt gain/loss 3 lbs overnight/5 lbs in 1 week
Activity Restrictions/Additional Instructions:
ACTIVITY:
-No strenuous activity: no heavy lifting, pushing, pulling anything over 15 pounds for one month
-continue to use stairs as tolerated
DRIVING RESTRICTIONS:
-No driving for one month or until approved by your surgeon
WOUND CARE:
-Shower daily. Use soap & water.
-No lotions, creams or powders on incision area.
DIET:
-continue a low fat/low cholesterol diet.
-IF you are diabetic, continue carb controlled diet.
CARDIAC REHAB:
-Please make appointment to start in 5-6 weeks with your local hospital program. (See Cardiac Rehabilitation Discharge Booklet).
SPECIALTY INSTRUCTIONS:
-Weigh yourself daily. Call your physician for any weight gain/loss of 3 lbs overnight or 5 lbs in one week.
-REPORT any clicking noise or uneven appearance of your sternum to your surgeon immediately.
-If you smoke, you are instructed to quit. The [place] smoking hotline phone number is [phone]
Instructions: Coronary artery bypass graft surgery, Heart-healthy diet
Stand Alone Forms: DC Instructions- Cath/EP Lab
Referrals:
[facility] [place] [Other]
[facility] [Outside]
(Cardiac Rehab Orientation appointment is on Tuesday September 17, 2024@ 10:00am.
The Cardiac Rehab gym is located on the first floor of the [facility].)
Crystal Klein CRNP [Specified Professional Personl] - 09/20/24 11:20 am
Marquise Escobar MD [Family Provider] - in one to two months
Semaj Cantu MD [Active] - 09/14/24 2:30 pm
Additional Discharge Medication Instructions: please take amiodarone 200mg twice a day and then 200mg daily until seen by a conference center coordinator
Prescriptions:
New
amiodarone 200 mg Tablet
200 mg PO BID Qty: 0 0RF
Rx Instructions:
please test 200mg BID x 14days and [id number] daily
midodrine 5 mg Tablet
5 mg PO TIDPRN PRN (Reason: SBP </= 95 mmHg) Qty: 0 0RF
clopidogrel 75 mg Tablet
75 mg PO DAILY Qty: 30 0RF
acetaminophen 325 mg Tablet
650 mg PO Q4HPRN PRN (Reason: mild pain,headache,temp >101F ) Qty: 3 0RF
pantoprazole 40 mg Tablet,Delayed Release (Dr/Ec)
40 mg PO DAILY Qty: 0 0RF
metoprolol succinate 25 mg Tablet Extended Release 24 Hr
12.5 mg PO DAILY Qty: 0 0RF
Continued
atorvastatin 40 MG tablet
40 mg PO QPM
aspirin 81 MG tablet,delayed release (DR/EC)
81 mg PO QPM
Patient Comments:
Pt took this morning for today's procedure.
spironolactone 25 MG tablet
12.5 mg PO DAILY
nitroglycerin 0.4 MG tablet, sublingual
0.4 mg sublingual [id number] PRN (Reason: chest pain)
tamsulosin 0.4 mg Capsule
0.8 mg PO HS
polyethylene glycol 3350 [Miralax] 17 gram Powder In Packet
17 g PO DAILYPRN PRN (Reason: constipation)
amlodipine 5 mg Tablet
2.5 mg PO DAILY
Dupixent Syringe 300 mg/2 mL Syringe
300 mg SC Q2W
diphenhydramine HCl [Benadryl Allergy] 25 mg Tablet
25 mg PO HS
esomeprazole magnesium [Nexium] 40 mg Capsule,Delayed Release(Dr/Ec)
40 mg PO BID
Probiotic
2 tab PO DAILY
epinephrine 0.3 mg/0.3 mL Auto-Injector
0.3 mg IM DAILYPRN PRN (Reason: allergic reaction)
Discontinued
diphenhydramine HCl [Benadryl] 25 mg Capsule
25 mg PO HS PRN (Reason: sleep)
Discharge Orders:
Discharge Patient (As Directed); Ordered 08/18/24
Ordered By: Rakel Mcgowan
Care Plan Goals
Care Plan Goals:
Problem: Readiness for enhanced knowledge related to diagnosis and treatment plan
Goal: Understand your diagnosis and treatment plan needs, including medications if applicable.
Instructions: Know your diagnosis, underlying causes and treatment plan options, including medications if applicable. Consult with your health care team to learn about your diagnosis and treatment plan, including medications if applicable.
Discharge Date and Time
Print Language: TURKISH
[2024-08-17] MEDS: MILK OF MAGNESIA 30 ML PO (12:12)
[2024-08-17] MEDS: DULCOLAX 10 MG RECTAL (12:12)
--- NOTE | 2024-08-17 12:14 | CM ---
Addendum entered by Emily Madera 08/17/24 15:25:
Telephone call to Spouse and son to review discharge plans to [facility] [place]. They are in agreement with the plan.
Original Note:
Reviewed chart. Received telephone call from [facility] liaison who states Mr. Srtong is approved for admission and they can accept tomorrow if medically stable. Met with Mr. Strong to update him. Medical work-up in progress. The discharge
plan is to go to [facility] tomorrow if medically stable.
--- NOTE | 2024-08-17 12:34 | PTCARENOTE ---
Pt reassessment unchanged from previous, vss, nsr, ra, PIV, oob in chair, ambulate with nursing with RW, [facility] tomorrow pending bed availability, need to move bowels prior to transfer to [facility].
--- NOTE | 2024-08-17 16:10 | PTCARENOTE ---
pt reassessment unchanged from previous, vss, ra, oob in chair, ambulating with nursing staff.
[2024-08-17] MEDS: LIPITOR 40 MG PO (17:41)
[2024-08-17] MEDS: SENOKOT-S PO (19:52)
--- NOTE | 2024-08-17 20:00 | PTCARENOTE ---
Received pt from [facility]. pt is POD #3 from CABG x4. plan is for pt to be d/c to [facility] when bed is available. pt is AAOx4, resting in bed comfortably NSR on monitor. VSS. heart sounds audible, radial and DP pulses palpable, no edema noted.
lungs diminished at b/l bases, spo2 94% on RA, x4 CT have been d/c'd. +BS x4 quadrants, abdomen round non tender, pt has had multiple loose stools, dark tarry, Hemoccult test negative, all laxatives ordered for tonight held. pt voiding clear yellow
urine without difficulty. surgical sites maintained. left PIV removed due to leaking, new right AC 20g IV placed. call hou within reach. will continue to monitor.
[2024-08-17] MEDS: FLOMAX 0.8 MG PO (21:16)
--- NOTE | 2024-08-18 | PTCARENOTE ---
pt resting comfortably in bed. NSR on monitor. VSS. will continue to monitor.
--- NOTE | 2024-08-18 04:00 | PTCARENOTE ---
pt assessment unchanged. VSS. NSR on monitor. will continue to monitor.
[2024-08-18 04:02] VITALS: BP 113/63
--- NOTE | 2024-08-18 04:29 | W.PN.CT ---
Today's Communication / Plan
-
Plan:
-No major issues overnight. Hemodynamically and neurologically intact. No focal neuro deficits noted
-No further a-fib since ~9 hrs on POD#2. Cardiology recommend oral anticoagulation if further a-fib
-BP has been soft postop and required Midodrine. BP improving, Midodrine placed on PRN
-Currently NSR @ 61 bpm
-Will give trial of Toprol XL 12.5 Qdaily
-Pt was noted to be bradycardic @ 55 bpm preop
-H/H stable @ 9.8/28.2 after transfusion on 08/16
-Postop thrombocytopenia has resolved, 114-> 145
-Postop tiny left apical ptx has resolved
-Cont. current meds (ASA, Plavix, Lipitor, PO Amiodarone, Toprol XL)
-Encourage use of IS
-OOB into chair/Ambulate
-PT/OT recommend acute rehab placement
-[facility] placement today
Assessment / Plan
-
Assessment:
-S/p Median sternotomy/CABG x 4 (BLAYNE to LAD, GSV to D1, GSV to OM2, GSV to RPDA)/Endoscopic harvest/prep of RLE GSV, by Dr. Cantu, 08/13/24, pod#5
-Severe 3v CAD/70-80% distal LM
-ICM
-LVEF 45-50% per intraop MANISHA
-Sinus bradycardia (HR 55 bpm preop)
-HTN
-Hyperlipidemia
-Asthma/Eczema
-Sinusitis
-Seasonal allergies
-Codeine allergy
-Former tobacco use (quit 1968)
-Anxiety disorder
-GERD
-Diverticulosis
-Colon polyps S/p polypectomies, 02/18/23
-Prostate Ca s/p radiation therapy, 2021
-S/P B/L TKR, 04/02/10
-S/P R knee arthrotomy, 1963
-S/p Left heart catheterization, 08/11/24
-S/p Tonsillectomy
-Acute postop blood loss/Anemia (stable without blood transfusion)
-Acute postop thrombocytopenia (stable without active bleed)
-Acute postop atelectasis
-Acute postop hypovolemia with subsequent hypervolemia
-Acute postop a-fib with RVR while on dobutamine gtt @ 1 mcg
-Acute postop tiny left apical ptx
Discussed patient care with: Cardiology, Nursing, Respiratory Therapy, Pharmacy and Care Team
Subjective
Procedure
-S/p Median sternotomy/CABG x 4 (BLAYNE to LAD, GSV to D1, GSV to OM2, GSV to RPDA)/Endoscopic harvest/prep of RLE GSV, by Dr. Cantu, 08/13/24
-
Date of Service: August 18, 2024
Pt c/o mild incisional pain, otherwise feels well
Objective Data
-
PT 15.9 Sec (11.4-14.6) H 08/14/24 03:11
INR 1.24 08/14/24 03:11
APTT 32.1 Sec (23.4-35.0) 08/13/24 13:24
Vital Signs
Vital Signs
Temp Pulse Resp BP Pulse Ox
98.0 F 66 16 128/71 95
08/18/24 04:00 08/18/24 04:00 08/18/24 04:00 08/17/24 23:45 08/18/24 04:00
CT Intake/Output/Weight
08/17/24 08/17/24 08/18/24
06:59 18:59 06:59
Intake Total 100 / 940 140 / 140
Output Total 1650 / 2500 300 / 300
Balance -1550 / -1560 140 / -160 -300 / -160
SaO2: 95 (RA)
Physical Exam
-
General: Awake, Oriented and AOx3
Cardiovascular: Regular rate & rhythm, No Rub and No Gallop
Respiratory: Decreased Breath Sounds (at bases, otherwise clear)
Sternum: Stable
Incision: Clean, Dry, Intact and Dressing Intact
Extremities: Other (+trace edema)
Data Reviewed
-
Lab Results: Results Reviewed
Medications: Active Meds Reviewed
Chest X-Ray: Report Reviewed and Image Reviewed
ECG: Report Reviewed and Image Reviewed
[2024-08-18 04:53] LABS: Hematocrit 28.2 % (39.0-52.0); Hemoglobin 9.8 g/dL (13.0-18.0); Mean Corp Hgb Conc. 34.8 g/dL (33.0-37.0); Mean Corpuscular Hgb 34.5 pg (27.0-31.0); Mean Corpuscular Volume 99.3 fL (80.0-94.0); Mean Platelet Volume 10.8 fL (7.4-10.4); Platelet Count 145 10^3/uL (130-400); Red Blood Cell Count 2.84 10^6/uL (4.70-6.10); White Blood Cell Count 8.6 10^3/uL (4.8-10.8)
[2024-08-18 05:36] LABS: Blood Urea Nitrogen 15 mg/dl (9-20); Calcium 8.7 mg/dl (8.4-10.2); Carbon Dioxide 28 mmol/L (22-30); Chloride 110 mmol/L (98-107); Estimated Creatinine Clearance 64 ml/min; Glucose 97 mg/dl (70-99); Magnesium 2.1 mg/dl (1.6-2.3); Sodium 140 mmol/L (135-145); eGFR > 60.00
[2024-08-18 06:00] VITALS: BMI 24.1
[2024-08-18 06:16] VITALS: BP 126/69
[2024-08-18] MEDS: TYLENOL 1000 MG PO (06:20)
--- NOTE | 2024-08-18 07:36 | W.PN.CD ---
Today's Communication / Plan
-
Cont meds going to rehab today
Impression / Plan
-
I/P: 83-year-old male with CAD, hypertension, dyslipidemia, prostate cancer and GERD who initially presented for outpatient coronary angiography. He was then found to have severe left main disease. He is in preparation for CABG.
CAD with severe left main disease and multivessel disease now s/p CABG with BLAYNE to LAD SVG to D1 SVG to OM2 and SVG to RPDA
-Remains stable s/p CABG; brief episode of PAF over the weekend
-Continue statin and aspirin/Plavix.
-Continue routine post-surgical care as directed by CT Surgery.
- will consider prolonged monitor after recovery
Hypertension
-Metoprolol on hold as patient is now on midodrine.
Dyslipidemia
-Continue atorvastatin
Cath August 11 : CONCLUSIONS
1. Right dominant circulation with a densely calcified, 70-80% lesion in the distal aspect of the left main extending into both the LAD and circumflex with 70% blockages in the ostia of both vessels, and 80%, densely calcified lesion in the
proximal LAD immediately proximal to the master septal, and 80% lesion in a small OM1 ostium, subtotal occlusion of the mid RCA with bridging collaterals supplying a large posterolateral branch with PARAG II flow and a chronic total occlusion of the
RPDA which is supplied by collaterals from the LAD.
2. Normal filling pressures (LVEDP = 6 mmHg at 77.1 kg).
Subjective: feels improved today
Physical Exam
Vital Signs/Labs
Vital Signs
Temp Pulse Resp BP Pulse Ox
98.0 F 75 16 126/69 95
08/18/24 04:00 08/18/24 06:16 08/18/24 04:00 08/18/24 06:16 08/18/24 05:13
08/17/24 08/18/24 08/19/24
06:59 06:59 06:59
Actual Weight 165 lb 12.602 oz 162 lb 14.746 oz
08/18/24 04:02
08/18/24 04:02
PT 15.9 Sec (11.4-14.6) H 08/14/24 03:11
INR 1.24 08/14/24 03:11
APTT 32.1 Sec (23.4-35.0) 08/13/24 13:24
Magnesium 2.1 mg/dl (1.6-2.3) 08/18/24 04:02
Physical Exam
Constitutional: No acute distress and Comfortable
EENT: Anicteric
Cardiovascular: Rhythm & rate is regular and Pedal edema is absent
Respiratory: Respiratory effort normal and Lungs clear to auscul.
GI: Soft
Neuro/Psych: AO x 3
Data Reviewed
-
Date of Service: August 18, 2024
EKG: Tracing Personally Visualized and interpreted (sr)
Echo: Report Reviewed by me
Labs: Labs Reviewed by me
[2024-08-18 09:22] VITALS: BP 108/72
[2024-08-18] MEDS: TOPROL XL 12.5 MG PO (09:25)
[2024-08-18] MEDS: PLAVIX 75 MG PO (09:26)
[2024-08-18] MEDS: PACERONE 200 MG PO (09:26)
[2024-08-18] MEDS: LOW STRENGTH ASPIRIN 81 MG PO (09:26)
[2024-08-18] MEDS: MAGNESIUM OXIDE 500 MG PO (09:26)
[2024-08-18] MEDS: FEOSOL 325 MG PO (09:26)
[2024-08-18] MEDS: VITAMIN C 500 MG PO (09:26)
[2024-08-18] MEDS: LIDOCAINE 4% PATCH TOPICAL (09:26)
[2024-08-18] MEDS: PROTONIX 40 MG PO (09:26)
[2024-08-18] MEDS: NSS IV (09:26)
--- NOTE | 2024-08-18 09:55 | CM ---
Reviewed chart. TT to [facility] to confirm bed available and can accept today. [facility] [place] Liaison states [facility] accept this afternoon. Can call report, ([phone]) around 2:30 p.m. Spoke with son this a.m.
regarding transfer to [facility] [place] and telephone call to spouse to review discharge plan to [facility] [place]. Met with Mr. Strong to review discharge plans. He is agreeable to transfer to [facility] [place]. Medical
work-up in progress. The discharge plan is to go to [facility] [place] when medically stable.
[2024-08-18 12:13] VITALS: BP 128/89
--- NOTE | 2024-08-18 15:01 | PTCARENOTE ---
sent via stretcher to [facility] with all belongings and paperwork. IV removed along with tele pack. report given to ALICE.
== END 2024-08-18 15:42 | DRG 234 ==
LOC: CVICU 17:05
PROVIDERS: Anesthesiology; Clinical Nurse Specialist Acute Care; Nurse Practitioner; Nurse Practitioner Adult Health; ADMITTING PHYSICIAN Internal Medicine Cardiovascular Disease; ATTENDING PHYSICIAN Thoracic Surgery (Cardiothoracic Vascular Surgery); FAMILY PHYSICIAN Family Medicine; OTHER PHYSICIAN Internal Medicine Critical Care Medicine; OTHER PHYSICIAN Physical Medicine & Rehabilitation
PROC: 4A023N7 Measurement of Cardiac Sampling and Pressure, Left Heart, Percutaneous Approach (ICD-10-PCS; 2024-08-11)
PROC: B2111ZZ Fluoroscopy of Multiple Coronary Arteries using Low Osmolar Contrast (ICD-10-PCS; 2024-08-11)
PROC: 02100ZC Bypass Coronary Artery, One Artery from Thoracic Artery, Open Approach (ICD-10-PCS; 2024-08-13)
PROC: 06BP4ZZ Excision of Right Saphenous Vein, Percutaneous Endoscopic Approach (ICD-10-PCS; 2024-08-13)
PROC: 5A1221Z Performance of Cardiac Output, Continuous (ICD-10-PCS; 2024-08-13)
PROC: 021209W Bypass Coronary Artery, Three Arteries from Aorta with Autologous Venous Tissue, Open Approach (ICD-10-PCS; 2024-08-13)
PROC: B24BZZ4 Ultrasonography of Heart with Aorta, Transesophageal (ICD-10-PCS; 2024-08-13)
PROC: 30233N1 Transfusion of Nonautologous Red Blood Cells into Peripheral Vein, Percutaneous Approach (ICD-10-PCS; 2024-08-16)
DX: I25.10 Atherosclerotic heart disease of native coronary artery without angina pectoris (principal); D62 Acute posthemorrhagic anemia; J98.11 Atelectasis; I50.22 Chronic systolic (congestive) heart failure; E78.2 Mixed hyperlipidemia; I10 Essential (primary) hypertension; I25.5 Ischemic cardiomyopathy; J45.909 Unspecified asthma, uncomplicated; K21.9 Gastro-esophageal reflux disease without esophagitis; D69.59 Other secondary thrombocytopenia; D53.9 Nutritional anemia, unspecified; F41.1 Generalized anxiety disorder; I48.91 Unspecified atrial fibrillation; R29.810 Facial weakness; E86.1 Hypovolemia; Z79.82 Long term (current) use of aspirin; Z79.899 Other long term (current) drug therapy; Z82.49 Family history of ischemic heart disease and other diseases of the circulatory system; Z85.46 Personal history of malignant neoplasm of prostate; Z87.891 Personal history of nicotine dependence; Z92.3 Personal history of irradiation
CPT/HCPCS: 71045; 71046; 71250; 80048; 80053; 81003; 81015; 82248; 82330; 82565; 82805; 82810; 82947; 82962; 83036; 83735; 84132; 84302; 84520; 85014; 85018; 85027; 85049; 85610; 85730; 86850; 86900; 86901; 86920; 92610; 93005; 93306; 93312; 93320; 93325; 93458; 93880; 94002; 97163; 97166; 97530; 97535; 99152; C1894; P9016; P9045; P9047; Q9967

== ENCOUNTER 2024-08-22 14:40 | Emergency (ER) | payer MEDICARE, OTHER, SELFPAY ==
[2024-08-22 14:44] VITALS: BP 125/79
--- NOTE | 2024-08-22 15:33 | ED.GENMED ---
History of Present Illness
General
Chief Complaint: DVT/Possible Blood Clot
Source: patient
Exam Limitations: none
Time Seen by Provider: 08/22/24 14:58
Nursing documentation reviewed up to this point in time: agreed with
History of Present Illness
History of Present Illness:
Patient is an 83-year-old male with history CAD s/p CABG x 4 08/13/24 [facility] after DVT found on ultrasound's morning. Patient reports worsening pain in right lower extremity and bruising which was
first noticed yesterday. An ultrasound this morning showed a DVT prompting visit to the emergency department. Patient is currently on subcutaneous heparin, aspirin, and Plavix. Patient denies any numbness/tingling in right lower extremity, chest
pain, or shortness of breath. No fevers or chills.
Patient has no personal history of blood clots.
Patient had CABG times 08/19/[address] Cantu
Past History
Past History
ED Past Medical History: CAD, HTN and Hypercholesterolemia
ED Past Surgical History: Orthopedic (Bilateral knee replacements)
Social History
Tobacco: Former smoker
Alcohol: Occasional
Drug: None
Personal:
Living: with family
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
Family History
Family History: CAD and Other (Hyperlipidemia)
Review of Systems
Review of Systems
Allergies reviewed?: Yes
All Other Systems: ROS reviewed and negative except as documented in HPI and ROS
Phy Exam
Physical Exam
Physical Exam:
Vitals: Patient's vital signs are stable. Afebrile
General: Patient is well appearing, no acute distress. Nontoxic-appearing
Skin: Sternal surgical incision clean, dry, intact with no drainage or surrounding erythema
Head: Normocephalic, atraumatic
Eyes: Sclera nonicteric. EOMs intact. No nystagmus.
Throat: Protecting airway
Neck: Normal ROM, no cervical spine tenderness, no meningismus
Cardiac: Regular rate and rhythm, no murmurs. 2+ radial pulses bilaterally
Pulm: Normal respiratory effort, no wheezes, rales, rhonchi heard on exam.
Abdomen: Abdomen soft nontender.
Extremities: 1+ pitting edema of right lower extremity with mild tenderness and ecchymosis to mid calf. Palpable DP pulse of RLE with normal sensation. Cap refill within normal limits. Good range of motion of right ankle and right knee without
pain.
Neuro: AAOx3. Grossly intact.
Psychiatric: Normal affect.
Course
Orders/Labs/Results
Orders:
Orders
08/22/24 15:38
Apixaban [Eliquis] 10 mg PO NOW STA
Vital Signs
Initial and Last Documented VS:
Initial Vital Signs
Temp Pulse Resp BP Pulse Ox
98.3 F 70 18 125/79 98
08/22/24 14:44 08/22/24 14:44 08/22/24 14:44 08/22/24 14:44 08/22/24 14:44
Last Documented Vital Signs
Temp Pulse Resp BP Pulse Ox
98.3 F 70 18 125/79 98
08/22/24 14:44 08/22/24 14:44 08/22/24 14:44 08/22/24 14:44 08/22/24 14:44
MDM/Problems Addressed
Differential Diagnosis Includes:
Not limited to: DVT, dependent edema, muscle strain, etc.
MDM/Problems Addressed:
83-year-old male with recent CABG x 4 presenting from [facility] after right lower extremity DVT found on outpatient ultrasound today. No fevers, chest pain, or shortness of breath. Vitals and physical exam as above. Patient well-appearing, no
apparent distress. He does have sternal incision which appears to be healing well without signs of cellulitis. Right lower extremity with 1+ pitting edema and mild tenderness and ecchymoses of right calf. He has normal neurovascular exam of right
lower extremity. Did review ultrasound report performed which shows a DVT involving the right peroneal vein and branch of greater saphenous vein proximally. Reviewed lab work obtained 08/19/2024 which shows creatinine 1.0. Patient is currently
anticoagulated with subcutaneous heparin, Plavix, and aspirin. Discussed case with cardiology, Dr. Kennedy and CT surgery. Ultimately�plan will be to discontinue aspirin and subcutaneous heparin. Patient will be started on Eliquis 10 mg twice
daily. He was instructed to continue Plavix. Patient given initial dose in emergency department today. Patient stable for discharge back to [facility]-Dr. Lorenzana at [facility] aware of plan. Advised to follow-up with CT surgery/cardiology as
scheduled. Patient comfortable with plan and expresses verbal understanding.
Chronic conditions affecting care:
CAD s/p CABG x 4 and stent placement 08/09/24
Acute Exacerbation and/or Progression of Chronic Illness:
Acute DVT
*Pulse Oximetry
Patient hypoxic: no
*EKG
Interpreted by ED Provider?: NA
*Touch Up Edger Interpretation
Rate: Touch Up Edger- N/A
*Critical Care Note
Total Time (30-74mins, 75-104mins- exclusive of procedures): Not Applicable
Data Reviewed
Review of Other/Old Records Reveals: Labs (Lab work performed for 325 which shows improving anemia with hemoglobin of 10.8, creatinine of 1.0) and Radiology Studies (Peripheral venous ultrasound of right lower extremity performed 08/22/2024 which
shows right lower extremity DVT involving the peroneal vein and a branch of the greater saphenous vein proximally)
Patient Management
Discussion with other providers: Fabrication And Assembly Supervisor (Case was discussed with cardiology and cardiothoracic surgery)
ED Attending Note
-
Portions of this chart may have been created with voice recognition software.� Occasional wrong word or��sound alike� substitutions may have occurred due to the inherent limitations of voice recognition software.
Discharge Plan
Departure
Patient Disposition: Acute Rehab Facility
Date of Disposition: 08/22/24
Time of Disposition: 15:39
Patient with high blood pressure during this ER visit?: No
Condition: Good
Covid-19: Not Applicable
Discharge Problem:
Deep vein thrombosis (DVT) of right lower extremity
Instructions: Deep Vein Thrombosis (Blood Clots in the Legs) (DC)
Prescriptions:
New
Eliquis 5 mg tablet
10 mg PO BID 30 Days Qty: 120 0RF
No Action
atorvastatin 40 MG tablet
40 mg PO QPM
aspirin 81 MG tablet,delayed release (DR/EC)
81 mg PO QPM
Patient Comments:
Pt took this morning for today's procedure.
spironolactone 25 MG tablet
12.5 mg PO DAILY
nitroglycerin 0.4 MG tablet, sublingual
0.4 mg sublingual [id number] PRN (Reason: chest pain)
tamsulosin 0.4 mg Capsule
0.8 mg PO HS
polyethylene glycol 3350 [Miralax] 17 gram Powder In Packet
17 g PO DAILYPRN PRN (Reason: constipation)
amlodipine 5 mg Tablet
2.5 mg PO DAILY
Dupixent Syringe 300 mg/2 mL Syringe
300 mg SC Q2W
diphenhydramine HCl [Benadryl Allergy] 25 mg Tablet
25 mg PO HS
esomeprazole magnesium [Nexium] 40 mg Capsule,Delayed Release(Dr/Ec)
40 mg PO BID
Probiotic
2 tab PO DAILY
epinephrine 0.3 mg/0.3 mL Auto-Injector
0.3 mg IM DAILYPRN PRN (Reason: allergic reaction)
amiodarone 200 mg Tablet
200 mg PO BID Qty: 0 0RF
Rx Instructions:
please test 200mg BID x 14days and [id number] daily
midodrine 5 mg Tablet
5 mg PO TIDPRN PRN (Reason: SBP </= 95 mmHg) Qty: 0 0RF
clopidogrel 75 mg Tablet
75 mg PO DAILY Qty: 30 0RF
acetaminophen 325 mg Tablet
650 mg PO Q4HPRN PRN (Reason: mild pain,headache,temp >101F ) Qty: 3 0RF
pantoprazole 40 mg Tablet,Delayed Release (Dr/Ec)
40 mg PO DAILY Qty: 0 0RF
metoprolol succinate 25 mg Tablet Extended Release 24 Hr
12.5 mg PO DAILY Qty: 0 0RF
Referrals:
Marquise Escobar MD [Family Provider] -
Semaj Cantu MD [Active] - Keep scheduled appt
Activity Restrictions/Additional Instructions:
Return to the emergency department with any significant worsening in swelling or pain in right lower extremity, numbness/tingling in right lower extremity, chest pain, shortness of breath, lightheadedness/dizziness, bleeding, or any other concerns
- As discussed your ultrasound did show a blood clot in your right lower leg.
- Your case was discussed with cardiology and cardiothoracic surgery. A prescription for Eliquis has been sent to your pharmacy. You should take 10 mg twice a day.
- As discussed�you should discontinue aspirin and subcutaneous heparin. You can continue Plavix as directed.
- Follow-up with cardiothoracic surgery and cardiology for further evaluation/management and continuation of Eliquis prescription.
- Monitor very closely for any signs of bleeding and return to the emergency department immediately.
Interventions
Interventions:
*General Assessment Last Done: 08/22/24 14:44
*Nursing Disposition Last Done: 08/22/24 18:21
ED- Cardiac Assessment Last Done: 08/22/24 15:35
ED- Pulmonary Assessment Last Done: 08/22/24 15:35
ED-Peripheral Vascular Assessment Last Done: 08/22/24 15:36
ED-Skin Assessment Last Done: 08/22/24 15:35
Discharge Date and Time
Discharge Date/Time: 08/22/24 18:22
Print Language: YI
[2024-08-22] MEDS: ELIQUIS 10 MG PO (16:05)
== END 2024-08-22 18:22 ==
LOC: EMR 14:40
PROVIDERS: EMERGENCY PHYSICIAN Emergency Medicine; FAMILY PHYSICIAN Family Medicine
DX: I82.451 Acute embolism and thrombosis of right peroneal vein (principal); E78.00 Pure hypercholesterolemia, unspecified; I10 Essential (primary) hypertension; I25.10 Atherosclerotic heart disease of native coronary artery without angina pectoris; Z79.02 Long term (current) use of antithrombotics/antiplatelets; Z87.891 Personal history of nicotine dependence; Z95.1 Presence of aortocoronary bypass graft; Z96.653 Presence of artificial knee joint, bilateral
CPT/HCPCS: 99283

== ENCOUNTER → 2024-10-06 10:05 | Outpatient (REF) | payer MEDICARE, OTHER, SELFPAY ==
[2024-10-06 11:32] LABS: Blood Urea Nitrogen 24 mg/dl (9-20); Calcium 9.1 mg/dl (8.4-10.2); Carbon Dioxide 27 mmol/L (22-30); Chloride 107 mmol/L (98-107); Glucose 95 mg/dl (70-99); Potassium 4.9 mmol/L (3.5-5.1); Sodium 141 mmol/L (135-145); eGFR 50.49
[2024-10-06 12:09] LABS: % Basophils 0.8 % (0-2); % Eosinophils 2.9 % (0-6); % Immature Granulocytes 0.5 % (0-0.5); % Lymphocytes 25.1 % (20.5-51.1); % Monocytes 11.3 % (1.7-9.3); % Neutrophils 59.4 % (42.2-75.2); Absolute Basophils 0.1 10^3/uL (0-0.2); Absolute Eosinophils 0.2 10^3/uL (0-0.7); Absolute Lymphocytes 1.7 10^3/uL (1.2-3.4); Absolute Monocytes 0.8 10^3/uL (0.1-0.6); Hematocrit 40.6 % (39.0-52.0); Hemoglobin 13.5 g/dL (13.0-18.0); Mean Corp Hgb Conc. 33.3 g/dL (33.0-37.0); Mean Corpuscular Hgb 34.2 pg (27.0-31.0); Mean Corpuscular Volume 102.8 fL (80.0-94.0); Mean Platelet Volume 10.9 fL (7.4-10.4); Nucleated Red Blood Cells % 0 % (-); Platelet Count 255 10^3/uL (130-400); Red Blood Cell Count 3.95 10^6/uL (4.70-6.10); Red Cell Dist. Width 13.2 % (11.5-14.5); White Blood Cell Count 6.7 10^3/uL (4.8-10.8)
== END ==
LOC: OLABPV 10:05
PROVIDERS: ATTENDING PHYSICIAN Family Medicine
DX: Z09 Encounter for follow-up examination after completed treatment for conditions other than malignant neoplasm (principal); D75.89 Other specified diseases of blood and blood-forming organs; I95.1 Orthostatic hypotension; I10 Essential (primary) hypertension
CPT/HCPCS: 36415; 80048; 85025

== ENCOUNTER 2024-10-15 14:50 | Outpatient (RCR) | payer MEDICARE, OTHER, SELFPAY | END 2024-10-15 23:59 | disposition home or self-care (01) | LOC: CRHB 14:50 | PROVIDERS: ATTENDING PHYSICIAN Internal Medicine Cardiovascular Disease; FAMILY PHYSICIAN Family Medicine | DX: I25.10 Atherosclerotic heart disease of native coronary artery without angina pectoris (principal); Z95.1 Presence of aortocoronary bypass graft | CPT/HCPCS: G0422; G0423 ==

== ENCOUNTER → 2024-11-07 12:05 | Outpatient (REF) | payer MEDICARE, OTHER, SELFPAY | LOC: PAVMRI 12:05 | PROVIDERS: ATTENDING PHYSICIAN Specialist; FAMILY PHYSICIAN Family Medicine | DX: M54.16 Radiculopathy, lumbar region (principal) | CPT/HCPCS: 72148 ==

== ENCOUNTER 2024-11-15 15:37 | Outpatient (RCR) | payer MEDICARE, OTHER, SELFPAY | END 2024-11-15 23:59 | disposition home or self-care (01) | LOC: CRHB 15:37 | PROVIDERS: ATTENDING PHYSICIAN Internal Medicine Cardiovascular Disease; FAMILY PHYSICIAN Family Medicine | DX: I25.10 Atherosclerotic heart disease of native coronary artery without angina pectoris (principal); Z95.1 Presence of aortocoronary bypass graft | CPT/HCPCS: G0422; G0423 ==

== ENCOUNTER → 2024-11-24 11:53 | Outpatient (REF) | payer MEDICARE, OTHER, SELFPAY ==
[2024-11-24 12:59] LABS: Blood Urea Nitrogen 25 mg/dl (9-20); Calcium 8.8 mg/dl (8.4-10.2); Carbon Dioxide 26 mmol/L (22-30); Chloride 109 mmol/L (98-107); Glucose 82 mg/dl (70-99); Potassium 4.4 mmol/L (3.5-5.1); Sodium 138 mmol/L (135-145); eGFR 55.19
== END ==
LOC: OLABPV 11:53
PROVIDERS: ATTENDING PHYSICIAN Family Medicine
DX: I10 Essential (primary) hypertension (principal); E78.2 Mixed hyperlipidemia; Z00.00 Encounter for general adult medical examination without abnormal findings; I25.10 Atherosclerotic heart disease of native coronary artery without angina pectoris
CPT/HCPCS: 36415; 80048

== ENCOUNTER 2024-12-15 15:24 | Outpatient (RCR) | payer MEDICARE, OTHER, SELFPAY | END 2024-12-15 23:59 | disposition home or self-care (01) | LOC: CRHB 15:24 | PROVIDERS: ATTENDING PHYSICIAN Internal Medicine Cardiovascular Disease; FAMILY PHYSICIAN Family Medicine | DX: I25.10 Atherosclerotic heart disease of native coronary artery without angina pectoris (principal); Z95.1 Presence of aortocoronary bypass graft | CPT/HCPCS: G0422; G0423 ==

== ENCOUNTER 2024-12-24 15:36 | Observation (INO) | payer MEDICARE, OTHER, SELFPAY ==
[2024-12-24] VITALS (8 sets, daily range): BP systolic 101–133; BP diastolic 58–73; PULSE 49–67; BMI 23.0; BMI 22.2
[2024-12-24 10:34] LABS: Hematocrit 39.0 % (39.0-52.0); Hemoglobin 12.8 g/dL (13.0-18.0); Mean Corp Hgb Conc. 32.8 g/dL (33.0-37.0); Mean Corpuscular Volume 100.3 fL (80.0-94.0); Nucleated Red Blood Cells % 0 % (-); Platelet Count 195 10^3/uL (130-400); Red Cell Dist. Width 13.6 % (11.5-14.5)
[2024-12-24 10:46] LABS: INR 1.34; PT 16.8 Sec (11.4-14.6)
[2024-12-24 10:47] LABS: APTT 32.9 Sec (23.4-35.0)
--- NOTE | 2024-12-24 10:52 | ED.GENMED ---
History of Present Illness
General
Chief Complaint: Rectal Bleeding
Source: patient
Exam Limitations: none
Time Seen by Provider: 12/24/24 10:29
Nursing documentation reviewed up to this point in time: agreed with
History of Present Illness
History of Present Illness:
Patient is an 83-year-old male with history CAD s/p quadruple bypass, prostate cancer s/p radiation therapy who presents to the emergency department for evaluation of rectal bleeding. Patient reports some ongoing rectal bleeding over the past few
months. He states he frequently has small amounts of bright red blood mixed into his stool. He does follow with a GI provider who believes this may be secondary to radiation proctitis.
However�yesterday patient reports 2 episodes of significant rectal bleeding. He states there was bright red blood both mixed into the stool as well as in the toilet bowl. These episodes were very different than his baseline bleeding. He denies any
abdominal pain, nausea, vomiting, or rectal pain. He denies any lightheadedness, dizziness, or shortness of breath. He has no chest pain
Patient is anticoagulated on both Eliquis and Plavix. Given anticoagulation and rectal bleeding�he was referred to the emergency department.
Past History
Past History
ED Past Medical History: CAD, HTN and Hypercholesterolemia
ED Past Surgical History: Orthopedic (Bilateral knee replacements)
Social History
Tobacco: Former smoker
Alcohol: Occasional
Drug: None
Personal:
Living: with family
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
Family History
Family History: CAD and Other (Hyperlipidemia)
Review of Systems
Review of Systems
Allergies reviewed?: Yes
All Other Systems: ROS reviewed and negative except as documented in HPI and ROS
Phy Exam
Physical Exam
Physical Exam:
Vitals: Patient's vital signs are stable. Afebrile
General: Patient is well appearing, no acute distress. Nontoxic
Skin: Warm and dry, no rashes or lesions
Head: Normocephalic, atraumatic
Eyes: Sclera nonicteric.
Throat: Protecting airway
Neck: Normal ROM, no cervical spine tenderness, no meningismus
Cardiac: Regular rate and rhythm, no murmurs.
Pulm: Normal respiratory effort, no wheezes, rales, rhonchi heard on exam
.
Abdomen: No abdominal tenderness.
Rectal: No visualized external hemorrhoids or evidence of active rectal bleeding. No stool in vault. There is a moderate amount of white paste from insertion of suppository both internally and externally.
Extremities: No evidence of cyanosis or edema. 2+ palpable DP pulses bilaterally
Neuro: AAOx3. Grossly intact.
Psychiatric: Normal affect.
Course
Orders/Labs/Results
Orders:
Orders
12/24/24 10:27
Type+Screen Urgent
Complete Blood Count/With Diff Urgent
Comprehensive Metabolic Panel Urgent
PTT Urgent
Prothrombin Time Urgent
12/24/24 14:37
Admit/Transfer Patient As Directed
Co-Sign Provider:
Level of Care: Observation services
Assign to:: Telemetry
Physician / Group: Hospitalist
Diagnosis: GI Bleed
Reason for Telemetry: Arrhythmia
Date to Stop Telemetry: 12/27/24
Time to Stop Telemetry: 11:00
Reason for Hospitalization: as above
12/24/24 14:38
PRN Pain Medication Management As Directed
May give lesser potent ordered pain med per pt: Yes
preference::
Protocol:: Medication orders for pain may be administered in a
manner that supports deferring to patient preference
when the pt is:
- Requesting an ordered lesser potent pain medication.
Least to most potent pain medications are defined
as: acetaminophen < NSAID < tramadol < opioids
(morphine, oxycodone, hydromorphone).
- Requesting a lesser dose of the same medication IF
ORDERED.
- Requesting a less intrusive route of administration
if both routes are prescribed by the provider (PO <
IV).
12/24/24 14:42
Code Status As Directed
Resuscitation Status: Do not resuscitate
Reached after discussion with pt or family/Healthcare POA: Yes
DNR Bracelet Application ONCE
12/24/24 Dinner
Clear Liquid
At Your Request: Full Participation
12/24/24 16:17
Midodrine [ProAmatine] 10 mg PO TID
Polyethylene Glycol Powder [Miralax] 17 grams PO DAILYPRN PRN constipation
12/24/24 16:17
CARDIOLOGY CONSULT Routine
Consulting Provider: Ashwini Goddard
Was physician already notified: Yes
Activity As Directed
Activity Level: Ambulate
INT (Intravenous Needle Therapy) As Directed
Comment: Place 2 IV catheters of the largest bore possible until stable
Orthostatic Vital Signs As Directed
Orthostatic VS Frequency: Now
Comment: then every four hours for twenty-four hours
Vital Signs As Directed
Frequency: Per unit guidelines
12/24/24 20:00
Atorvastatin [Lipitor] 40 mg PO QPM@1999
Docusate Sodium [Colace] 100 mg PO BID
Pantoprazole [Protonix IV] 40 mg IV BID
12/24/24 22:00
Mirtazapine [Remeron] 7.5 mg PO HS
Tamsulosin [Flomax] 0.4 mg PO HS
12/25/24 06:00
Basic Metabolic Panel IN AM
Complete Blood Count/With Diff IN AM
12/25/24 08:00
Amiodarone [Pacerone] 200 mg PO DAILY
Clopidogrel Bisulfate [Plavix] 75 mg PO DAILY
Cyanocobalamin [Vitamin B-12] 1,000 mcg PO DAILY
Spironolactone [Aldactone] 12.5 mg PO DAILY
12/25/24 12:00
Sennosides [Senokot] 17.2 mg PO NOON
12/27/24 11:00
DC Protocol for Telemetry ONCE
Abnormal Lab Results
12/24/24
10:27
RBC 3.89 L 10^6/uL
(4.70-6.10)
Hgb 12.8 L g/dL
(13.0-18.0)
MCV 100.3 H fL
(80.0-94.0)
MCH 32.9 H pg
(27.0-31.0)
MCHC 32.8 L g/dL
(33.0-37.0)
Absolute Lymphs (auto) 1.0 L 10^3/uL
(1.2-3.4)
Absolute Monos (auto) 0.8 H 10^3/uL
(0.1-0.6)
Lymphocytes % 13.8 L %
(20.5-51.1)
Monocytes % 10.9 H %
(1.7-9.3)
PT 16.8 H Sec
(11.4-14.6)
BUN 24 H mg/dl
(9-20)
Creatinine 1.5 H mg/dL
(0.7-1.3)
Glucose 120 H mg/dl
(70-99)
12/24/24 10:27
12/24/24 10:27
Vital Signs
Initial and Last Documented VS:
Initial Vital Signs
Temp Pulse Resp BP Pulse Ox
97.4 F 60 18 123/62 98
12/24/24 09:56 12/24/24 09:56 12/24/24 09:56 12/24/24 09:56 12/24/24 09:56
Last Documented Vital Signs
Temp Pulse Resp BP Pulse Ox
97.8 F 54 18 113/55 96
12/24/24 19:26 12/24/24 21:04 12/24/24 19:26 12/24/24 21:04 12/24/24 20:00
MDM/Problems Addressed
Differential Diagnosis Includes:
Not limited to: External hemorrhoid, internal hemorrhoid, diverticular bleeding, anal fissure, upper GI bleeding, etc.
MDM/Problems Addressed:
83-year-old male anticoagulated on both Eliquis and Plavix with two episodes of significant rectal bleeding yesterday. He has had no additional episodes and denies any lightheadedness, dizziness, shortness of breath. Patient hemodynamically stable
on arrival. Physical exam as above. Patient appears well. Rectal exam limited by suppository insertion prior to presentation with significant amount of residue. Unable to perform FOBT. However, no evidence of active bleeding at this time. Labs were
sent prior to my evaluation which reveal a hemoglobin of 12.8. Chemistry with what appears to be stable renal insufficiency with mild elevation of BUN, which also appears stable.
Patient hemodynamically stable in emergency department without any evidence of active bleeding however, he was unable to provide stool sample. I did contact patient�s G.I. provider, Barbara Rosales PA-C to discuss care.
Given age, comorbidities, and report of ignificant bleeding on anticoagulation � will admit patient to the hospital for observation to ensure no significant G.I. bleeding. Patient accepted to hospitalist service in stable condition. Patient
comfortable with plan.
Chronic conditions affecting care:
CAD, history prostate CA
Acute Exacerbation and/or Progression of Chronic Illness:
N/A
*Pulse Oximetry
SaO2: 97
Oxygen Mode of Delivery: Room air
Patient hypoxic: no
*EKG
Interpreted by ED Provider?: NA
*Sales Floor Team Member Interpretation
Rate: Sales Floor Team Member- N/A
*Critical Care Note
Total Time (30-74mins, 75-104mins- exclusive of procedures): Not Applicable
Patient Management
Discussion with other providers: Hospitalist and Automotive Tire Worker (Case discussed with patients GI provider)
Escalation/DeEscalation of care consider admission/obs:
Admit for further obsbervation
ED Attending Note
-
Portions of this chart may have been created with voice recognition software.� Occasional wrong word or��sound alike� substitutions may have occurred due to the inherent limitations of voice recognition software.
Discharge Plan
Departure
Patient Disposition: Admit
Date of Disposition: 12/24/24
Time of Disposition: 12:37
Presentation/result/management discussed w/ accepting MD/DO: Hospitalist
Discharge Problem:
Rectal bleeding
Interventions
Interventions:
*Risk Screen - Suicide Last Done: 12/24/24 10:02
*General Assessment Last Done: 12/24/24 10:23
*Neglect/Abuse Screening Last Done: 12/24/24 10:02
*ED COVID-19 Vaccine History Last Done: 12/24/24 10:23
*Nursing Disposition Last Done: 12/24/24 16:03
MC-Rbkfhn-Fgxtcltmix Assessment Last Done: 12/24/24 12:07
ED- Cardiac Assessment Last Done: 12/24/24 12:07
ED- Pulmonary Assessment Last Done: 12/24/24 12:07
Discharge Date and Time
Discharge Date/Time: 12/24/24 16:03
[2024-12-24 10:57] LABS: ALT (SGPT) 22 U/L (0-50); AST (SGOT) 22 U/L (17-59); Albumin 4.1 g/dl (3.5-5.0); Alkaline Phosphatase 66 U/L (38-126); Blood Urea Nitrogen 24 mg/dl (9-20); Calcium 8.9 mg/dl (8.4-10.2); Carbon Dioxide 29 mmol/L (22-30); Chloride 105 mmol/L (98-107); Estimated Creatinine Clearance 39 ml/min; Glucose 120 mg/dl (70-99); Potassium 4.4 mmol/L (3.5-5.1); Sodium 139 mmol/L (135-145); Total Protein 6.3 g/dl (6.3-8.2); eGFR 46.48
--- NOTE | 2024-12-24 13:54 | HPS.HSE ---
Addendum entered and electronically signed by Thong Walker MD 12/24/24 15:05:
This is an addendum to H&P written by Stanford Bateman on 12/24/2024. �Patient seen and examined independently with resident.�
83-year-old male past medical history of CAD status post CABG on Plavix in July, prostate cancer status post radiation therapy, CKD, RLE DVT on Eliquis in August, eczema, presenting for rectal bleeding ongoing for several months. �Small amount of
bright red blood mixed in with stool. �He follows with GI who believes this may be secondary to radiation proctitis for prostate cancer/hemorrhoidal.
2 significant episodes of rectal bleeding yesterday with bright red blood mixed into the stool as well as in the toilet bowl.
Vital signs normal. Rectal exam showed no visualized external hemorrhoids or evidence of active rectal bleeding. No stool in the vault.
Labs show hemoglobin 12.8. �Creatinine of 1.5 at baseline.
Patient with rectal bleeding likely secondary to radiation proctitis. No active bleeding. Difficult situation as patient recently had right lower extremity DVT requiring Eliquis and recent CABG requiring Plavix. Hold Eliquis. Continue Plavix.
�Observation and monitor for further bleeding or worsening anemia. Patient has an appointment with his GI doctor at [facility] coming up. Consulted cardiology for management of antiplatelet therapy in the setting of GI bleeding. Likely need to
resume Eliquis as soon as possible when able.
Original Note:
Family Physician
-
Family Physician: Marquise Escobar
Chief Complaint
-
Rectal bleeding
History of Present Illness
This is an 83-year-old male medical history of CAD s/p CABG (08/13/2024) on Plavix, hypertension, hyperlipidemia, GERD, bilateral TKA, BPH, prostate cancer s/p XRT, diverticulosis, colonic polyp, chronic anemia, RLE DVT on Eliquis, anxiety,
depression who presents to [facility] for evaluation of rectal bleeding.� The patient reports chronic rectal bleeding ongoing for the past few months.�Patient reports he noted small amounts of bright red blood in his stool yesterday afternoon and 2
episodes yesterday evening. He reports the volume of blood was different from previous encounters. He called his GI and cardiology office and was told to come to the ER for evaluation. Today, he has not had a bowel movement. Just recently took
Imodium. He follows GI at [facility] who believes his previous radiation for prostate cancer may be causing his bleeding.� He denies abdominal pain, nausea, vomiting, rectal pain. �He denies fatigue, shortness of breath. �The patient is on Eliquis
for right lower extremity DVT.� Also on Plavix.� He last had a colonoscopy 02/2023.� He last had an endoscopy 03/2023.
Upon presentation to the ED, vitals with BP 123/62, pulse 60, respiratory rate 18, temperature 97.4, O2 sats 98% on room air.� Laboratory showed WBC 7.1, hemoglobin 12.8.� Creatinine 1.5 with baseline 0.9.
Patient to be admitted for observation.
Medical History
Past Medical History
Past Medical History: Reports Other (CAD s/p CABG, hypertension, hyperlipidemia, GERD, bilateral TKA, BPH, prostate cancer s/p XRT, diverticulosis, colonic polyp, chronic anemia, RLE DVT, anxiety, depression )
Past Surgical History: Reports Orthopedic, Tonsilectomy and Other (CABG)
Social History
Tobacco: Former Smoker
Alcohol: Occasional
Drug: None
Personal:
Living: With Family
Family History
Family History: Not pertinent
Allergies / Home Medications
Allergies reflects when Allergies were last updated in [employer].
Home Medications with original date entered in [employer]
Allergy/Medication List:
Allergies
Allergy/AdvReac Type Severity Reaction Status Date / Time
bee venom protein (honey bee) Allergy throat Verified 12/24/24 10:04
closing
and itching
ezetimibe (From Zetia) Allergy LEG Verified 12/24/24 10:04
SORENESS
hydrochlorothiazide (From Allergy THROAT Verified 12/24/24 10:04
Prinzide) SWELLING
hydromorphone HCl (From Allergy Hives Verified 12/24/24 10:04
Dilaudid)
lisinopril (From Prinzide) Allergy THROAT Verified 12/24/24 10:04
SWELLING
morphine (Morphine) Allergy Hives Verified 12/24/24 10:04
oxycodone HCl (From Percocet) Allergy Hives Verified 12/24/24 10:04
Sulfa (Sulfonamide Allergy Hives Verified 12/24/24 10:04
Antibiotics)
tramadol Allergy itch and Verified 12/24/24 10:04
difficulty
sleeping
Home Medications
nitroglycerin 0.4 mg sublingual tablet 0.4 mg sublingual [id number] PRN chest pain 09/01/16
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
polyethylene glycol 3350 17 gram oral powder packet (Miralax) 17 g PO DAILYPRN PRN constipation 03/26/23
amiodarone 200 mg tablet 200 mg PO DAILY Arrhythmia-starting on 09/01 30 days #30 tabs 08/31/24
apixaban 5 mg tablet (Eliquis) 5 mg PO BID DVT, arrhythmia. 30 days #60 tabs 08/31/24
atorvastatin 40 mg tablet 40 mg PO QPM High Cholesterol 30 days #30 tabs 08/31/24
clopidogrel 75 mg tablet 75 mg PO DAILY graft patentcy 30 days #30 tabs 08/31/24
cyanocobalamin (vitamin B-12) 1,000 mcg tablet (Vitamin B-12) 1,000 mcg PO DAILY Supplement 30 days #30 tabs 08/31/24
docusate sodium 100 mg capsule 100 mg PO BID Bowel regimen 30 days #60 caps 08/31/24
mirtazapine 7.5 mg tablet 7.5 mg PO HS Mental Health/Anxiety,sleep 30 days #30 tabs 08/31/24
multivitamin with folic acid 400 mcg tablet (Tab-A-Steven) 1 tab PO DAILY Supplement 30 days #30 tabs 08/31/24
sennosides 8.6 mg tablet (Lashonda-victor manuel) 17.2 mg (2 x 8.6 mg) PO NOON Bowel regimen 30 days #60 tabs 08/31/24
spironolactone 25 mg tablet 12.5 mg (1/2 x 25 mg) PO DAILY Fluid Retention/Swelling 30 days #15 tabs 08/31/24
tamsulosin 0.4 mg capsule 0.4 mg PO HS Urinary issue 30 days #30 caps 08/31/24
midodrine 5 mg tablet 10 mg PO TID Orthostasis 12/24/24
omeprazole 20 mg tablet,delayed release 20 mg PO BID Gastrointestinal Issue 12/24/24
Review of Systems
-
A 12 point ROS was completed and negative except as noted: Yes
Constitutional: Reports No Symptoms (All review of systems completed and negative except as documented)
Physical Exam
Vital Signs
Vital Signs
Temp Pulse Resp BP Pulse Ox
97.6 F 46 15 118/70 99
12/24/24 12:00 12/24/24 11:00 12/24/24 10:23 12/24/24 11:00 12/24/24 12:00
Physical Exam
General: Well Developed and No Apparent Distress
Respiratory: Clear; No Wheezes
Cardiac: S1/S2 and Regular Rhythm
GI: Soft, Non Tender, Non Distended and Normal Bowel Sounds
Musculoskeletal: No Edema
Neuro: Awake, Alert, Oriented and AO x 3
Psych: Calm
Laboratory Results
-
12/24/24 10:27
12/24/24 10:27
Laboratory Results
PT 16.8 Sec (11.4-14.6) H 12/24/24 10:27
INR 1.34 12/24/24 10:27
APTT 32.9 Sec (23.4-35.0) 12/24/24 10:27
Total Bilirubin 0.5 mg/dl (0.2-1.3) 12/24/24 10:27
AST 22 U/L (17-59) 12/24/24 10:27
ALT 22 U/L (0-50) 12/24/24 10:27
Alkaline Phosphatase 66 U/L (38-126) 12/24/24 10:27
Impression/Plan
-
Assessment/plan
#Acute on chronic lower GI bleed
-Likely secondary to radiation proctitis �VS diverticular bleed VS colonic polyp
-Patient with Multiple episodes of GI bleed in the past few months, scheduled to see GI in a few days
-Hemodynamically stable on presentation, asymptomatic.
-On dual antiplatelets, anticoagulation therapy (Eliquis and Plavix)
-H&H
-Clear liquid diet
-IV pantoprazole
-If bleeding Episode resumes, consider GI consult
-Hold Eliquis for now, Continue Plavix for now.
-Consult cardiology for guidance on Eliquis/Plavix.
#TONY on CKD 3
-Creatinine 1.5, from baseline 0.9 likely secondary to prerenal etiology
-IV fluids, avoid nephrotoxic meds
#History of right lower extremity DVT after CABG procedure
-Anticoag was started for RLE DVT
-Hold Eliquis for now, Consider resume after repeat CBC in AM.
#CAD s/p CABG x 4 (BLAYNE to LAD, GSV to D1, GSV to OM2, GSV to RPDA)- 08/13/2024
-Continue Plavix,
#PostOperative Atrial fibrillation
-Rate control with Amiodarone
#BPH
-Continue tamsulosin
#Hypertension
-continue spironolactone
#Anxiety
-Mirtazapine
CODE STATUS- DNR
DVT ppx- SCDs
--- NOTE | 2024-12-24 15:52 | CON.CAR ---
Addendum entered and electronically signed by Ashwini Goddard MD 12/24/24 17:44:
I saw and examined the patient.
The COMMUTATOR V RING ASSEMBLER's note was reviewed and I agree with the note.
Comment: 83 yo male with one-vessel CAD (side branch of RCA complex 70-80% stenosis in 2009), then cath 08/11/24 showed multivessel disease so s/p CABG x 4 on 08/13/24, post-op had 9 hours of Afib that resolved on Amiodarone (no OAC since Afib not
recurrent), RLE DVT 08/2024 so started on Eliquis with Plavix, h/o� prostate cancer s/p radiation, anxiety/depression, GERD, HLD and HTN, who presents to the ER with c/o acute rectal bleeding last night when he had a BM. We are asked to comment of
antiplatelet regimen with GI bleeding. Overall he is feeling well. No chest pain or sob. Hgb 12.8. RRR s1/s2 no m/r/g. Lungs CTA.
His CAD is stable. Plavix was for graft patency and we are nearly 5 months post op. With onging bleeding, the risk> Benefit. He is on eliquis for DVT. If medicine decides that it should continue after happy that no further active bleeding
evident, then would continue with just a single agent. When Eliquis completed, would transition to a baby aspirin 81mg daily.
Further work up of GIB per medicine.
I will sign off.
Original Note:
Consultation
Consultation Request
Date/Time Consultation Requested: 12/24/24 3:15p
Date/Time Consultation Performed: 12/24/24 3:30p
Requesting Provider: Dr. Coyne
Performing Provider: ABEL Allen for Dr. Goddard
Reason for Consultation: GIB
Medical History
-
Chief Complaint: gib
History of Present Illness:
Mr. Strong is an 83 yo male with one-vessel CAD (side branch of RCA complex 70-80% stenosis in 2009), then cath 08/11/24 showed multivessel disease so s/p CABG x 4 on 08/13/24, post-op had 9 hours of Afib that resolved on Amiodarone (no OAC since
Afib not recurrent), RLE DVT 08/2024 so started on Eliquis with Plavix, h/o� prostate cancer s/p radiation, anxiety/depression, GERD, HLD and HTN, who presents to the ER with c/o acute rectal bleeding last night when he had a BM. He is admitted to
the hospitalist service and we are consulted for GIB on Plavix/Eliquis. He is not having rectal bleeding currently, no BM since last night. He states following with GI in [place] with Barbara Rosales PA-C and states having intermittent mild
blood in his stool for the last 6 months, he was told its due to prior radiation from prostate cancer and hemorrhoids.
Past Medical History
Past Medical History: Other (as above)
Past Surgical History: Other (as above)
Social History
Tobacco: Non-Smoker
Living: With Family
Family History
Family History: Reviewed & Not Pertinent
Allergies / Home Medications
Allergy/AdvReac Type Severity Reaction Status Date / Time
bee venom protein (honey bee) Allergy throat Verified 12/24/24 10:04
closing
and itching
ezetimibe (From Zetia) Allergy LEG Verified 12/24/24 10:04
SORENESS
hydrochlorothiazide (From Allergy THROAT Verified 12/24/24 10:04
Prinzide) SWELLING
hydromorphone HCl (From Allergy Hives Verified 12/24/24 10:04
Dilaudid)
lisinopril (From Prinzide) Allergy THROAT Verified 12/24/24 10:04
SWELLING
morphine (Morphine) Allergy Hives Verified 12/24/24 10:04
oxycodone HCl (From Percocet) Allergy Hives Verified 12/24/24 10:04
Sulfa (Sulfonamide Allergy Hives Verified 12/24/24 10:04
Antibiotics)
tramadol Allergy itch and Verified 12/24/24 10:04
difficulty
sleeping
�Medication �Instructions �Recorded �Confirmed �Type
nitroglycerin 0.4 mg sublingual 0.4 mg sublingual [id number] PRN 09/01/16 12/24/24 History
tablet chest pain
dupilumab 300 mg/2 mL subcutaneous 300 mg SC Q2W Autoimmune Disorder 03/26/23 12/24/24 History
syringe (Dupixent)
polyethylene glycol 3350 17 gram 17 g PO DAILYPRN PRN constipation 03/26/23 12/24/24 History
oral powder packet (Miralax)
amiodarone 200 mg tablet 200 mg PO DAILY 08/31/24 12/24/24 Rx
Arrhythmia-starting on 09/01 29
days #30 tabs
apixaban 5 mg tablet (Eliquis) 5 mg PO BID DVT, arrhythmia. 30 08/31/24 12/24/24 Rx
days #60 tabs
atorvastatin 40 mg tablet 40 mg PO QPM High Cholesterol 30 08/31/24 12/24/24 Rx
days #30 tabs
clopidogrel 75 mg tablet 75 mg PO DAILY graft patentcy 30 08/31/24 12/24/24 Rx
days #30 tabs
cyanocobalamin (vitamin B-12) 1,000 mcg PO DAILY Supplement 30 08/31/24 12/24/24 Rx
1,000 mcg tablet (Vitamin B-12) days #30 tabs
docusate sodium 100 mg capsule 100 mg PO BID Bowel regimen 30 08/31/24 12/24/24 Rx
days #60 caps
mirtazapine 7.5 mg tablet 7.5 mg PO HS Mental 08/31/24 12/24/24 Rx
Health/Anxiety,sleep 30 days #30
tabs
multivitamin with folic acid 400 1 tab PO DAILY Supplement 30 days 08/31/24 12/24/24 Rx
mcg tablet (Tab-A-Steven) #30 tabs
sennosides 8.6 mg tablet (Lashonda-victor manuel) 17.2 mg (2 x 8.6 mg) PO NOON Bowel 08/31/24 12/24/24 Rx
regimen 30 days #60 tabs
spironolactone 25 mg tablet 12.5 mg (1/2 x 25 mg) PO DAILY 08/31/24 12/24/24 Rx
Fluid Retention/Swelling 30 days
#15 tabs
tamsulosin 0.4 mg capsule 0.4 mg PO HS Urinary issue 30 days 08/31/24 12/24/24 Rx
#30 caps
midodrine 5 mg tablet 10 mg PO TID Orthostasis 12/24/24 12/24/24 History
omeprazole 20 mg tablet,delayed 20 mg PO BID Gastrointestinal Issue 12/24/24 12/24/24 History
release
Review of Systems
-
History Source: Patient
All other systems: Negative unless noted
Physical Exam
Vital Signs
Temp Pulse Resp BP Pulse Ox
97.6 F 52 15 114/73 97
12/24/24 14:00 12/24/24 13:44 12/24/24 10:23 12/24/24 13:44 12/24/24 13:44
Lab Results
12/24/24 10:27
12/24/24 10:27
Physical Exam
General: Well Developed, Well Nourished and No Apparent Distress
HEENT: Normocephalic, Anicteric and Moist Mucous Membranes
Respiratory: Clear and Non Labored Respirations
Cardiac: S1/S2 and Regular Rhythm (bradycardia)
Breast: Deferred by me
GI: Soft, Non Tender and Normal Bowel Sounds
Rectal: Deferred by Provider
Genito-urinary: No Costovertebral Tender
Musculoskeletal: No Clubbing and No Cyanosis
Skin: Warm and Dry
Neuro: AO x 3
Hematologic/Lymphatic: No Lymphadenopathy
Psych: Calm
Impression / Plan
-
GI bleeding - acute last night with BM.
- per hospitalist.
- no recurrent bleeding.
- on Plavix s/p CABG x 4 08/13/24 for graft patency, able to d/c Plavix given GIB.
- on Eliquis for RLE DVT 08/2024 managed by medicine regarding length of time for treatment, etc.
- follows with GI in [place] with Barbara Rosales PA-C, states having intermittent mild blood in his stool for the last 6 months, he was told its due to prior radiation from prostate cancer and hemorrhoids.
CAD - s/p CABG x 4 on 08/13/24.
- given GIB OK to d/c Plavix and monitor.
Afib - paroxysmal, 9 hours post-op CABG 07/2024.
- no recurrence.
- monitor on tele.
- if recurrent then will need OAC ([id number] score is 4).
DVT - RLE 08/2024.
- per medicine.
HTN - stable.
- he has orthostatic hypotension on midodrine as well, continue.
Data Reviewed
-
Labs: Labs Reviewed by me
Old Records: Reviewed
--- NOTE | 2024-12-24 16:04 | CM ---
CM reviewed chart and met with pt bedside in ED. Pt lives with his in [facility] at [place] [address], one [address], no [place]. He is his 's primary caregiver but [facility] is [facility].
Pt is independent in ADLs, personal care. Using a rolling walker for ambulation.
no hx VN, was at [facility] in August after cardiac surgery.
Currently going to Cardiac Rehab at , planning for OP PT/OT once discharged from Cardiac Rehab.
AMANDA reviewed and signed.
PCP: Marquise Escobar
Pharmacy: [facility]
Anticipate discharge home with Cardiac Rehab, watch for needs
--- NOTE | 2024-12-24 16:15 | PTCARENOTE ---
Received pt from ED via stretcher. Pt AAOX3. SB on risk control specialist. Pox: 96% RA. Pt denies pain/SOB. Son at bedside. Call hou within reach. Plan of care ongoing.
[2024-12-24] MEDS: PROTONIX IV 40 MG IV (20:24)
[2024-12-24] MEDS: NSS (PRESERVATIVE FREE) 10 ML IV (20:24)
[2024-12-24] MEDS: LIPITOR 40 MG PO (20:25)
[2024-12-24] MEDS: COLACE 100 MG PO (20:25)
[2024-12-24] MEDS: REMERON 7.5 MG PO (21:03)
[2024-12-24] MEDS: FLOMAX 0.4 MG PO (21:03)
[2024-12-25 03:14] VITALS: BP 97/65
[2024-12-25 06:00] VITALS: BMI 21.9
[2024-12-25 07:11] LABS: Hematocrit 38.0 % (39.0-52.0); Hemoglobin 12.3 g/dL (13.0-18.0); Mean Corp Hgb Conc. 32.4 g/dL (33.0-37.0); Mean Corpuscular Volume 99.5 fL (80.0-94.0); Nucleated Red Blood Cells % 0 % (-); Platelet Count 188 10^3/uL (130-400); Red Cell Dist. Width 13.6 % (11.5-14.5)
[2024-12-25 07:42] LABS: Blood Urea Nitrogen 20 mg/dl (9-20); Calcium 9.1 mg/dl (8.4-10.2); Carbon Dioxide 29 mmol/L (22-30); Chloride 105 mmol/L (98-107); Estimated Creatinine Clearance 42 ml/min; Glucose 85 mg/dl (70-99); Potassium 5.1 mmol/L (3.5-5.1); Sodium 139 mmol/L (135-145); eGFR 55.19
[2024-12-25 07:44] VITALS: BP 102/62; BP 115/67; BP 89/57; PULSE 50; PULSE 57; PULSE 68
[2024-12-25] MEDS: COLACE 100 MG PO ×2 (09:01→19:18)
[2024-12-25] MEDS: VITAMIN B-12 1000 MCG PO (09:02)
[2024-12-25] MEDS: NSS (PRESERVATIVE FREE) 10 ML IV ×2 (09:03→19:18)
[2024-12-25] MEDS: PROTONIX IV 40 MG IV ×2 (09:03→19:18)
[2024-12-25] MEDS: ALDACTONE PO (09:21)
[2024-12-25 11:07] LABS: Hematocrit 40.3 % (39.0-52.0); Hemoglobin 13.4 g/dL (13.0-18.0); Mean Corp Hgb Conc. 33.3 g/dL (33.0-37.0); Mean Corpuscular Volume 99.5 fL (80.0-94.0); Platelet Count 212 10^3/uL (130-400); Red Cell Dist. Width 13.6 % (11.5-14.5)
--- NOTE | 2024-12-25 11:50 | CM ---
Patient seen at bedside on . Patient states he is for discharge home with follow up for compltion of cardiac rehab. Patient may need updated script for cardiac rehab due to hospitalization. CM updated nursing. Patient OBS and is planning on
discharge home today. CM will continue to follow for discharge planning needs.
Plan; home with outpatient cardiac rehab script requested to complete rehab.
[2024-12-25 11:58] VITALS: BP 112/65; BP 128/69; BP 131/65; PULSE 50; PULSE 63; PULSE 65
[2024-12-25] MEDS: SENOKOT 17.2 MG PO (12:24)
--- NOTE | 2024-12-25 12:56 | W.PN.HOSP.TC ---
Today's Communication/Plan
-
Monitor patient for further bleeding issues overnight
RLE Doppler negative for clot
stop eliquis/plavix
will startr ASA 81mg based on clinical course
Assessment / Plan
Assessment / Plan
1. Recurrent GI bleed
Radiation proctitis
- Patient with history of recurrent lower GI bleed and came in with bright red blood in stool again
- Hemoglobin is actually improved from previous visits and currently 13
- Cardiology consulted and recommended patient Plavix to be changed to baby aspirin
- Right lower extremity venous Doppler done and no residual blood clot present, can be taken off of Eliquis as well
- Monitor patient overnight for any further bleeding issues and recheck hemoglobin in the morning
- Continue on low residue diet for now
2. TONY
- Admission creatinine of 1.5, trending down
- Baseline creatinine 0.9 and GFR greater than 60
- avoid nephrotoxic medication
3. Provoked right lower extremity DVT
-Post bypass earlier this year in August
-Repeat right lower extremity venous Doppler this admission did not show any residual clot
4. CAD s/p CABG x 4 (BLAYNE to LAD, GSV to D1, GSV to OM2, GSV to RPDA)- 08/13/2024
- Cardiology cleared patient to be transition to baby aspirin, Plavix to be discontinued.
5. Postop Atrial fibrillation
- Patient has some asymptomatic bradycardia, asked cardiology to evaluate for continuation of amiodarone
6. BPH
-Continue tamsulosin
7. Essential Hypertension
-continue spironolactone
8. Anxiety
-maintain on Mirtazapine
CODE STATUS- DNR
DVT ppx- SCDs
Total time spent : 53 mins
Anticipated Discharge: 24 - 48 hours
Subjective/Interval History
-
Date of Service: December 25, 2024
Patient had a bowel movement with some blood in it in afternoon today
Denies any abdominal pain/dizziness/syncope
Objective Data
-
Labs:
Laboratory Results
12/25/24 12/25/24
06:45 10:33
WBC 6.7 6.5
Hgb 12.3 L 13.4
Hct 38.0 L 40.3
Plt Count 188 212
Sodium 139
Potassium 5.1
Chloride 105
Carbon Dioxide 29
BUN 20
Creatinine 1.3
Glucose 85
Calcium 9.1
Vital Signs:
Vital Signs
Temp Pulse Resp BP Pulse Ox
97.6 F 47 18 114/63 97
12/25/24 11:58 12/25/24 09:01 12/25/24 11:58 12/25/24 09:01 12/25/24 11:58
I&O
12/24/24 12/25/24 12/26/24
06:59 06:59 06:59
Output Total 1150 / 1150
Balance -1150 / -1150
Review of Systems
-
Respiratory: Reports No Symptoms
Cardiac: Reports No Symptoms
Abdomen/GI: Reports No Symptoms
Physical Exam
-
General: No Apparent Distress and Comfortable
HEENT: Negative Oxygen
Respiratory: Clear to Auscultation
Cardiac: Regular Rhythm and S1/S2; Negative Murmur or Rub
GI: Soft and Nontender
Musculoskeletal: No Edema
Neuro: Awake, Alert, Oriented, No Motor Deficits and Nonfocal/Grossly Intact
Psych: Calm
--- NOTE | 2024-12-25 13:45 | W.PN.CD ---
Today's Communication / Plan
-
stop amiodarone
start aspirine 81mg daily
ok for discharge when GIB is stable.
Impression / Plan
-
GI bleeding - acute last night with BM.
- per hospitalist.
- on Plavix s/p CABG x 4 08/13/24 for graft patency, able to d/c Plavix given GIB.
- on Eliquis for RLE DVT 08/2024resolved Eliquis stopped
- follows with GI in [place] with Barbara Rosales PA-C, states having intermittent mild blood in his stool for the last 6 months, he was told its due to prior radiation from prostate cancer and hemorrhoids.
CAD - s/p CABG x 4 on 08/13/24.
- given GIB OK to d/c Plavix and monitor.
-use asa 81mg as Eliquis being stopped
Post op Afib - paroxysmal, 9 hours post-op CABG 07/2024.
- no recurrence.
- HR in the 40's -50s on tele.
-he states at times in cardiac rehab he is LH.
-will stop Amiodarone since he is >3 months post op, and assess for recurrence. I will alert Dr Shabazz.
-will not see effect for some time.
- if recurrent then will need OAC ([id number] score is 4).
DVT - RLE 08/2024.
- per medicine.
HTN - stable.
- he has orthostatic hypotension on midodrine as well, continue.
Physical Exam
Vital Signs/Labs
Vital Signs
Temp Pulse Resp BP Pulse Ox
97.6 F 47 18 114/63 97
12/25/24 11:58 12/25/24 09:01 12/25/24 11:58 12/25/24 09:01 12/25/24 11:58
12/24/24 12/25/24 12/26/24
06:59 06:59 06:59
Actual Weight 148 lb 3 oz
12/25/24 10:33
12/25/24 06:45
PT 16.8 Sec (11.4-14.6) H 12/24/24 10:27
INR 1.34 12/24/24 10:27
APTT 32.9 Sec (23.4-35.0) 12/24/24 10:27
Physical Exam
Constitutional: No acute distress
Cardiovascular: Rhythm & rate is regular, Pedal edema is absent, JVD pressure is normal and Systolic murmur absent
Respiratory: Respiratory effort normal, Lungs clear to auscul., Wheeze Absent and Crackles Absent
Neuro/Psych: AO x 3
Data Reviewed
-
Date of Service: December 25, 2024
Medical Decision Making: Review of Case with other Provider (sinus frederick)
[2024-12-25 15:33] VITALS: BP 117/68
[2024-12-25] MEDS: LIPITOR 40 MG PO (19:19)
[2024-12-25 19:34] VITALS: BP 110/68; BP 115/69; BP 124/71; PULSE 57; PULSE 60; PULSE 87
[2024-12-25] MEDS: FLOMAX 0.4 MG PO (21:41)
[2024-12-25] MEDS: REMERON 7.5 MG PO (21:41)
[2024-12-25 23:00] VITALS: BP 121/62
[2024-12-26 03:31] VITALS: BP 110/67
[2024-12-26 06:00] VITALS: BMI 22.1
[2024-12-26 07:00] VITALS: BP 113/61
[2024-12-26 07:04] LABS: Hematocrit 39.1 % (39.0-52.0); Hemoglobin 12.8 g/dL (13.0-18.0); Mean Corp Hgb Conc. 32.7 g/dL (33.0-37.0); Mean Corpuscular Volume 99.7 fL (80.0-94.0); Platelet Count 207 10^3/uL (130-400); Red Cell Dist. Width 13.7 % (11.5-14.5)
[2024-12-26] MEDS: NSS (PRESERVATIVE FREE) 10 ML IV (08:39)
[2024-12-26] MEDS: PROTONIX IV 40 MG IV (08:39)
[2024-12-26] MEDS: ALDACTONE 12.5 MG PO (08:40)
[2024-12-26] MEDS: LOW STRENGTH ASPIRIN 81 MG PO (08:40)
[2024-12-26] MEDS: VITAMIN B-12 1000 MCG PO (08:40)
[2024-12-26] MEDS: COLACE 100 MG PO (08:40)
--- NOTE | 2024-12-26 11:02 | CM ---
Patient home today with no needs. Has outpatient script for cardiac rehab. family here to transport home. CM will continue to follow for discharge planning needs.
Plan; home with no needs at this time
--- NOTE | 2024-12-26 11:38 | W.PN.HOSP.TC ---
Today's Communication/Plan
-
d/c home
Assessment / Plan
Assessment / Plan
1. Recurrent GI bleed
Radiation proctitis
- Patient with history of recurrent lower GI bleed and came in with bright red blood in stool again
- Hemoglobin is actually improved from previous visits and currently 13
- Cardiology consulted and recommended patient Plavix to be changed to baby aspirin
- Right lower extremity venous Doppler done and no residual blood clot present, can be taken off of Eliquis as well
- No further episodes of blood in stool overnight, hemoglobin stable around 13
- Continue on low residue diet for now
2. TONY -improving
- Admission creatinine of 1.5, trending down
- Baseline creatinine 0.9 and GFR greater than 60
- avoid nephrotoxic medication
3. Provoked right lower extremity DVT -resolved
-Post bypass earlier this year in August
-Repeat right lower extremity venous Doppler this admission did not show any residual clot
4. CAD s/p CABG x 4 (BLAYNE to LAD, GSV to D1, GSV to OM2, GSV to RPDA)- 08/13/2024
- Cardiology cleared patient to be transition to baby aspirin, Plavix to be discontinued.
5. Postop Atrial fibrillation
- Patient has some asymptomatic bradycardia, asked cardiology to evaluate for continuation of amiodarone
6. BPH
-Continue tamsulosin
7. Essential Hypertension
-continue spironolactone
8. Anxiety
-maintain on Mirtazapine
CODE STATUS- DNR
DVT ppx- SCDs
More than 30 minutes spent in discharge including
Final examination of the patient
Summarizing hospital stay
Instructions for continuing care to all relevant caregivers
Preparation of discharge records, prescriptions, and referral forms
Total time spent (in minutes): 37mins
Anticipated Discharge: Today
Subjective/Interval History
-
Date of Service: December 26, 2024
No further blood in stool
No other issues
Objective Data
-
Labs:
Laboratory Results
12/26/24
06:27
WBC 7.4
Hgb 12.8 L
Hct 39.1
Plt Count 207
Vital Signs:
Vital Signs
Temp Pulse Resp BP Pulse Ox
97.4 F 51 16 113/61 95
12/26/24 07:00 12/26/24 07:00 12/26/24 07:00 12/26/24 07:00 12/26/24 07:00
I&O
12/25/24 12/26/24 12/27/24
06:59 06:59 06:59
Output Total 1150 / 1150 200 / 200
Balance -1150 / -1150 -200 / -200
Review of Systems
-
Respiratory: Reports No Symptoms
Cardiac: Reports No Symptoms
Abdomen/GI: Reports No Symptoms
Physical Exam
-
General: No Apparent Distress and Comfortable
HEENT: Negative Oxygen
Respiratory: Clear to Auscultation
Cardiac: Regular Rhythm and S1/S2; Negative Murmur or Rub
GI: Soft and Nontender
Musculoskeletal: No Edema
Neuro: Awake, Alert, Oriented, No Motor Deficits and Nonfocal/Grossly Intact
Psych: Calm
--- NOTE | 2024-12-26 15:06 | W.DCSUMMARY ---
Discharge Summary
Discharge Data
Date of Admission: 12/24/24
Date of Discharge: 12/26/24
-
Pending Results: No
Hospital Course
Discharging Physician : Dr Mark Anthony Scruggs
Disposition : Home
Primary care physician : Dr. Marquise Juarez
Principal Discharge diagnosis :
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
History of right lower extremity deep venous thrombus
Acute kidney injury
Chronic Discharge diagnosis :
Coronary disease with history of bypass in August 10
Postoperative atrial fibrillation
Benign prostatic hyperplasia
Essential hypertension
Generalized anxiety disorder
Hospital Course :
Patient is a 83-year-old male with no major past medical history came to ER with new onset of bright red blood in stool. Patient have history of recurrent lower GI bleed from radiation proctitis. Patient was vitally stable and hemoglobin was
actually elevated from known baseline from previous visits. Patient is on Plavix and Eliquis which were held and cardiology was involved in care for further help in light of patient recurrent GI bleed. Cardiology recommended patient to be
transition from Plavix to aspirin. Patient also had history of right lower extremity DVT diagnosed in August post bypass surgery, repeat venous Doppler showed resolution of clot. Patient was taken off of Eliquis as well. Patient did not have any
further bleeding episodes during the hospital and patient was discharged on baby aspirin only.
Important imaging findings :
None
Procedure findings :
None
Discharge Plan
-
Patient Disposition: Home (Routine Discharge)
Discharge Diagnosis/Procedures: Rectal bleed, Radiation proctitis
Condition: Fair
Diet: Regular
Activity: As tolerated
Driving Restrictions: No driving
Blood Work: CBC in 1 week
Referrals:
Marquise Escobar MD [Family Provider, [facility]] - in one week
Additional Discharge Medication Instructions: STOP eliquis and Plavix
START Aspirin 81mg/daily ONLY
Prescriptions:
New
aspirin 81 mg Tablet,Chewable
81 mg PO DAILY Qty: 30 0RF
Continued
nitroglycerin 0.4 MG tablet, sublingual
0.4 mg sublingual [id number] PRN (Reason: chest pain)
polyethylene glycol 3350 [Miralax] 17 gram Powder In Packet
17 g PO DAILYPRN PRN (Reason: constipation)
Dupixent Syringe 300 mg/2 mL Syringe
300 mg SC Q2W
omeprazole 20 mg Tablet,Delayed Release (Dr/Ec)
20 mg PO BID
midodrine 5 mg tablet
10 mg PO TID
amiodarone 200 mg Tablet
200 mg PO DAILY 30 Days Qty: 30 0RF
docusate sodium 100 mg Capsule
100 mg PO BID 30 Days Qty: 60 0RF
mirtazapine 7.5 mg Tablet
7.5 mg PO HS 30 Days Qty: 30 0RF
sennosides [Lashonda-victor manuel] 8.6 mg Tablet
17.2 mg PO NOON 30 Days Qty: 60 0RF
cyanocobalamin (vitamin B-12) [Vitamin B-12] 1,000 mcg Tablet
1,000 mcg PO DAILY 30 Days Qty: 30 0RF
tamsulosin 0.4 mg Capsule
0.4 mg PO HS 30 Days Qty: 30 0RF
multivitamin with folic acid [Tab-A-Steven] 400 mcg Tablet
1 tab PO DAILY 30 Days Qty: 30 0RF
atorvastatin 40 MG tablet
40 mg PO QPM 30 Days Qty: 30 0RF
spironolactone 25 MG tablet
12.5 mg PO DAILY 30 Days Qty: 15 0RF
Discontinued
Eliquis 5 mg Tablet
5 mg PO BID 30 Days Qty: 60 0RF
clopidogrel 75 mg Tablet
75 mg PO DAILY 30 Days Qty: 30 0RF
Discharge Orders:
Discharge Patient (As Directed); Ordered 12/26/24
Ordered By: Mark Anthony Scruggs
Discharge Date and Time
Discharge Date/Time: 12/26/24 10:58
Print Language: AMHARIC
== END 2024-12-26 10:58 | disposition home or self-care (01) ==
LOC: 4 EAST ACU 15:36
PROVIDERS: Student in an Organized Health Care Education/Training Program; ADMITTING PHYSICIAN Hospitalist; ATTENDING PHYSICIAN Hospitalist; CONSULT PHYSICIAN Internal Medicine Cardiovascular Disease; EMERGENCY PHYSICIAN Emergency Medicine; FAMILY PHYSICIAN Family Medicine
DX: K62.7 Radiation proctitis (principal); K62.5 Hemorrhage of anus and rectum; Y84.2 Radiological procedure and radiotherapy as the cause of abnormal reaction of the patient, or of later complication, without mention of misadventure at the time of the procedure; R00.1 Bradycardia, unspecified; D64.9 Anemia, unspecified; N17.9 Acute kidney failure, unspecified; I25.10 Atherosclerotic heart disease of native coronary artery without angina pectoris; E78.00 Pure hypercholesterolemia, unspecified; I12.9 Hypertensive chronic kidney disease with stage 1 through stage 4 chronic kidney disease, or unspecified chronic kidney disease; N18.30 Chronic kidney disease, stage 3 unspecified; K21.9 Gastro-esophageal reflux disease without esophagitis; I95.1 Orthostatic hypotension; K57.90 Diverticulosis of intestine, part unspecified, without perforation or abscess without bleeding; F32.A Depression, unspecified; N40.0 Benign prostatic hyperplasia without lower urinary tract symptoms; F41.1 Generalized anxiety disorder; I48.0 Paroxysmal atrial fibrillation; Z96.653 Presence of artificial knee joint, bilateral; Z87.891 Personal history of nicotine dependence; Z83.49 Family history of other endocrine, nutritional and metabolic diseases; Z82.49 Family history of ischemic heart disease and other diseases of the circulatory system; Z83.438 Family history of other disorder of lipoprotein metabolism and other lipidemia; Z66 Do not resuscitate; Z79.01 Long term (current) use of anticoagulants; Z92.3 Personal history of irradiation; Z95.1 Presence of aortocoronary bypass graft; Z85.46 Personal history of malignant neoplasm of prostate; Z86.718 Personal history of other venous thrombosis and embolism; Z79.02 Long term (current) use of antithrombotics/antiplatelets; Z86.0100 Personal history of colon polyps, unspecified; Z88.5 Allergy status to narcotic agent; Z88.2 Allergy status to sulfonamides; Z88.8 Allergy status to other drugs, medicaments and biological substances; Z91.030 Bee allergy status; Z79.899 Other long term (current) drug therapy
CPT/HCPCS: 80048; 80053; 85025; 85027; 85610; 85730; 86850; 86900; 86901; 93971; 99284; G0378

== ENCOUNTER 2025-01-05 15:07 | Outpatient (RCR) | payer MEDICARE, OTHER, SELFPAY | END 2025-01-05 15:56 | disposition home or self-care (01) | LOC: CRHB 15:07 | PROVIDERS: ATTENDING PHYSICIAN Internal Medicine Cardiovascular Disease; FAMILY PHYSICIAN Family Medicine | DX: Z95.1 Presence of aortocoronary bypass graft (principal) | CPT/HCPCS: G0422; G0423 ==

== ENCOUNTER → 2025-02-02 11:19 | Outpatient (REF) | payer MEDICARE, OTHER, SELFPAY ==
[2025-02-02 12:39] LABS: Hematocrit 36.0 % (39.0-52.0); Hemoglobin 11.7 g/dL (13.0-18.0); Mean Corp Hgb Conc. 32.5 g/dL (33.0-37.0); Mean Corpuscular Volume 100.8 fL (80.0-94.0); Nucleated Red Blood Cells % 0 % (-); Platelet Count 215 10^3/uL (130-400); Red Cell Dist. Width 14.4 % (11.5-14.5)
[2025-02-02 13:45] LABS: ALT (SGPT) 28 U/L (0-50); AST (SGOT) 23 U/L (17-59); Albumin 3.6 g/dl (3.5-5.0); Alkaline Phosphatase 77 U/L (38-126); Blood Urea Nitrogen 29 mg/dl (9-20); Calcium 8.9 mg/dl (8.4-10.2); Carbon Dioxide 24 mmol/L (22-30); Chloride 110 mmol/L (98-107); Glucose 83 mg/dl (70-99); Potassium 4.7 mmol/L (3.5-5.1); Sodium 139 mmol/L (135-145); Total Protein 6.0 g/dl (6.3-8.2); eGFR 54.85
[2025-02-02 14:42] LABS: Vitamin B12 812 pg/ml (239-931)
== END ==
LOC: OLABPV 11:19
DX: D64.9 Anemia, unspecified (principal); I25.10 Atherosclerotic heart disease of native coronary artery without angina pectoris; E53.8 Deficiency of other specified B group vitamins
CPT/HCPCS: 36415; 80053; 82607; 85025

== ENCOUNTER → 2025-03-09 10:33 | Outpatient (REF) | payer MEDICARE, OTHER, SELFPAY ==
[2025-03-09 10:52] LABS: Hematocrit 38.4 % (39.0-52.0); Hemoglobin 12.7 g/dL (13.0-18.0); Mean Corp Hgb Conc. 33.1 g/dL (33.0-37.0); Mean Corpuscular Volume 103.2 fL (80.0-94.0); Nucleated Red Blood Cells % 0 % (-); Platelet Count 192 10^3/uL (130-400); Red Cell Dist. Width 14.2 % (11.5-14.5)
== END ==
LOC: OLABPV 10:33
PROVIDERS: ATTENDING PHYSICIAN Family Medicine
DX: D50.0 Iron deficiency anemia secondary to blood loss (chronic) (principal)
CPT/HCPCS: 36415; 85025

== ENCOUNTER → 2025-04-20 11:08 | Outpatient (REF) | payer MEDICARE, OTHER, SELFPAY | LOC: CLAB 11:08 | PROVIDERS: ATTENDING PHYSICIAN Internal Medicine Cardiovascular Disease; FAMILY PHYSICIAN Family Medicine; REFERRING PHYSICIAN Physician Assistant Medical | DX: I25.810 Atherosclerosis of coronary artery bypass graft(s) without angina pectoris (principal); Z95.1 Presence of aortocoronary bypass graft; R19.7 Diarrhea, unspecified | CPT/HCPCS: 87324; 87449; 93306 ==

== ENCOUNTER → 2025-04-22 12:15 | Outpatient (REF) | payer MEDICARE, OTHER, SELFPAY | LOC: OLABPV 12:15 | PROVIDERS: ATTENDING PHYSICIAN Physician Assistant Medical | DX: R19.7 Diarrhea, unspecified (principal) | CPT/HCPCS: 87328; 87329; 89055 ==

== ENCOUNTER → 2025-05-03 11:58 | Outpatient (REF) | payer MEDICARE, OTHER, SELFPAY ==
[2025-05-03 13:14] LABS: PSA, Total - Diagnostic < 0.06 ng/ml (0.0-4.0)
== END ==
LOC: OLABPV 11:58
PROVIDERS: ATTENDING PHYSICIAN Family Medicine Geriatric Medicine
DX: C61 Malignant neoplasm of prostate (principal)
CPT/HCPCS: 36415; 84153; 84270; 84402; 84403